=== PATIENT | male | born 1935 | race Caucasian/White ===

== ENCOUNTER → 2017-10-20 | Outpatient (CLI) | payer MEDICARE ==
[~2017-10-20] VITALS: Ht 177.8 cm; Wt 70.8 kg
[~2017-10-20] MED LIST: APIX5TAB PO; APIX5TAB2 PO; ASP325T; ASP325T PO; ASPI-983 PO; CATHETER FLUSH 10 ML SYR IV PRN; CHOL2000 PO; CHOL200012 PO; CLPD75T PO; DOFE500C PO; DOFE500C4 PO; EXCELON PATCH TP; EZET1TAB44; FISH1CAP15 PO; MEMA10TA PO; MEMA28CA PO; MEMA28CA5 PO; MULT-974 PO; OMG1KC; PRAV20TA3 PO; RAMI5CAP PO; RIVA1PAT12 TD; RMP2.5C PO; RMP5C PO; TICA90TA PO; TURM500C4 PO
[2017-10-20 09:56] VITALS: BP 139/76
--- NOTE | 2017-10-20 22:38 | STRESS TEST ---
DATE OF SERVICE: 10/20/2017 AN EXERCISE MYOVIEW STRESS TEST REPORT REFERRING PHYSICIAN: Dr. Can. Baseline heart rate is 45. Baseline blood pressure is 139/76. Baseline EKG is sinus rhythm with no ischemic changes. In summary, the patient was injected with 10.99 mCi of technetium-99 Myoview and the resting images were obtained. Then, the patient started exercising with a baseline heart rate, blood pressure and EKG mentioned above. During exercise, the patient had frequent atrial premature contractions and atrial couplets. There were no significant ischemic changes. He was injected with 29.6 mCi of technetium-99 Myoview at the peak stress level. During recovery, heart rate and blood pressure returned to baseline. EKG was showing nondiagnostic changes that returned to baseline during recovery. Review of the SPECT images showed reversible ischemia involving the mid to apical anterior wall, anteroapical segment and anterolateral wall. SSS is 12, SDS 7 and TID value of 1.1. On the gated images, the left ventricle appeared to be in normal size with normal contractility and calculated ejection fraction 63%. CONCLUSION: 1. Fair exercise tolerance, a total of 5 minutes 30 seconds on standard Jose Francisco protocol, total of 7.1 METS achieving 100% of maximum expected heart rate. 2. Frequent atrial premature contractions and atrial couplets and atrial bigeminy noted during test. 3. Nondiagnostic EKG changes with exercise returned to baseline during recovery. 4. Mild hypertensive changes with exercise returned to baseline during recovery. 5. Reversal ischemia involved the mid to apical anterior wall, anterolateral wall on SPECT images. 6. Normal left ventricular size with normal contractility. Calculated ejection fraction of 63%. Job ID: [id number] DocumentID: [id number] Dictated Date: 10/20/2017 16:16:54 World Language Teacher Date: 10/20/2017 22:37:26 Dictated By: JAZ NERI MD
== END ==
LOC: CARD 08:12
PROVIDERS: ATTEND Internal Medicine Cardiovascular Disease
DX: I25.10 Atherosclerotic heart disease of native coronary artery without angina pectoris (principal); R07.9 Chest pain, unspecified; I48.0 Paroxysmal atrial fibrillation; R00.2 Palpitations; I49.5 Sick sinus syndrome
CPT/HCPCS: 78452; 93017

== ENCOUNTER → 2017-10-25 | Outpatient (CLI) | payer MEDICARE ==
[~2017-10-25] MED LIST changes: -CATHETER FLUSH 10 ML SYR IV PRN
== END ==
LOC: CARD 11:24
PROVIDERS: ATTEND Internal Medicine Cardiovascular Disease
DX: I25.10 Atherosclerotic heart disease of native coronary artery without angina pectoris (principal); R07.9 Chest pain, unspecified; I48.0 Paroxysmal atrial fibrillation; R00.2 Palpitations; I49.5 Sick sinus syndrome
CPT/HCPCS: 93306

== ENCOUNTER 2017-11-03 06:55 | Day surgery (SDC) | payer MEDICARE ==
[~2017-11-03] VITALS: Ht 179.1 cm; Wt 68.0 kg
[2017-11-03] VITALS (16 sets, daily range): BP systolic 91–148; BP diastolic 61–93
[~2017-11-03 06:55] MED LIST changes: -APIX5TAB PO; -ASPI-983 PO; -CHOL200012 PO; -DOFE500C4 PO; -FISH1CAP15 PO; -MEMA28CA5 PO; -MULT-974 PO; -PRAV20TA3 PO; -RAMI5CAP PO; -RIVA1PAT12 TD; -TICA90TA PO; -TURM500C4 PO
--- OUTSIDE RECORDS SUMMARY | 2017-11-03 06:58 | XMS REPORT | Clinical Summary ---
Author Author [facility] Organization [facility] Address Unknown Phone Unavailable Care Team Providers Care Counselor Marriage And Family Name Role Phone Doris Can MD PCP Source Comments Some departments are not documenting in the electronic medical record. If you do not see the information that you expected, contact Release of Information in the Health Information Management department at [phone] for further assistance in locating additional records.[facility] Allergies Active Allergy Reactions Severity Noted Date Comments Atorvastatin MUSCLE PAIN 01/30/2014 Muscle weakness Current Medications Prescription Sig. Disp. Refills Start End Date Status Date apixaban (ELIQUIS) 5 mg Take 5 mg by mouth twice Active tab tablet daily. vitamins, multiple cap Take 1 Cap by mouth Active daily. nitroglycerin (NITROSTAT) Place 0.4 mg under tongue Active 0.4 mg tablet every 5 minutes as needed. pravastatin (PRAVACHOL) Take 20 mg by mouth Active 10 mg tablet daily. cholecalciferol(+) Take 2,000 Units by mouth Active (VITAMIN D-3) 2,000 unit daily. tablet ramipril (ALTACE) 5 mg Take 10 mg by mouth Active capsule daily. fish oil /omega-3 fatty Take by mouth as Active acids (SEA-OMEGA) directed. 1 caps in the 340/1000 mg capsule morning and 1 cap at night rivastigmine(+) (EXELON) Apply 1 Patch to top of Active 13.3 mg/24 hour skin as directed daily. transdermal patch TURMERIC ROOT EXTRACT PO Take by mouth. Active memantine (NAMENDA XR) 28 Take by mouth. Active mg CSpX TIKOSYN 500 mcg capsule TAKE 1 CAPSULE BY MOUTH 30 capsule 0 06/28/19 Active TWICE DAILY 18 Active Problems Problem Noted Date Stroke (HCC) 01/30/2014 Overview: Recurrent; last stroke was 07/25/13 L ast Assessment & Plan: His MRI of the head reported acute cortical infarct involving the frontal parietal lobe. He continues to take Eliquis 5 mg twice daily for anticoagulation. He was educated on the importance of medication compliance. Palpitations 01/30/2014 Overview: 12/15/13 LINQ (serial # [id number]) implanted by Dr. Rocha CAD (coronary artery disease) 01/30/2014 Overview: CAD with prior CABG x 4 in 1999 -- we do not have the details of his CABG at this time. 07/13 Echo: with an ejection fraction of 60%, PAP 25 mmHg by echo. 10/10 ZARINA: with positive inferolateral ischemia, felt to be potentially diaphragmatic attenuation, however given the wide complex tachycardia cardiac catheterization pursued. 10/10 cardiac catheterization per report (documentation currently not available at the time of this dictation) luminal irregularities in the RCA with no significant obstructive disease in the left System. Prior history of one occluded SVG and a "nearly occluded SVG per patient's report". The patient also reports having had a stent in one of his vein grafts in the past as well. 10/10Cardiac catheterization. Per patient's report two vessels with obstruction including one of them being a graft if not two. He underwent stent placement x 2. Plavix initiated. Normal LV function by cardiac catheterization and echocardiogram. 07/25/13 Echo: mild hypertrophy was noted at the base of the septum giving the septum a sigmoid shape. Systolic function appeared to be normal. Estimated EF 60%. Diastolic dysfunction is suggested by doppler. LA dilatation (4.3cm). 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 Mild tricuspid regurgitation. Aortic valve sclerosis. No aortic stenosis. Estimated PAP of 35 mmHg. 07/26/13 Cardiac Cath: 2 vein grafts occluded. The first vein graft to the RCA and the second vein graft is probably to the Diagonal system. Patent vein graft, jump graft to the LAD and first OM with excellent flow. Proper Circumflex artery has 70% stenosis at the midportion. LM has a 60% distal stenosis. L ast Assessment & Plan: Continues to follow Dr. Rocha closely for primary cardiac care. If he becomes symptomatic in the future, the plan would be for him to undergo intervention on the circumflex artery. He remains on daily Plavix therapy. SVT (supraventricular tachycardia) ([facility]) 01/30/2014 Overview: 10/09/05 SVT documented by Holter -- wide complex tachycardia also documented. Wide complex tachycardia changes to narrow complex tachycardia without termination and no change in cycle length. Cycle lengths are variable, at times 420 ms, at other times 380 ms. No clear 2:1 block noted. P waves at times visible documenting atrial tachycardia as well as ectopic atrial rhythms at times. Multifocal atrial tachycardia documented briefly. 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 12/01/05 EPS and RFA: anterolateral accessory pathway identified, unable to eliminate via retrograde aortic approach. Will plan transseptal approach in the future. 01/10 recurrent EPS and RFA via transseptal approach eliminating concealed left anterolateral accessory pathway successfully. No recurrent symptoms or arrhythmias. HTN (hypertension) 01/30/2014 Last Assessment & Plan: Well controlled on current therapy. HLD (hyperlipidemia) 01/30/2014 Last Assessment & Plan: Continues to be managed by Dr. Rocha. He is on Pravastatin 10 mg daily. Atrial fibrillation ([facility]) 01/30/2014 Overview: 02/22/14 Tikosyn initation L ast Assessment & Plan: 29 events on his ILR appear to be atrial fibrillation with RVR. He also had 2 episodes of an atrial tachycardia. Ventricular rates were rapid, ranging between 150-160 bpm. All episodes occurred between 9200-4472 am. Given how rapid his rates are, there is concern he is at risk for a tachy-mediated induced cardiomyopathy. We discussed the options at this time including rate control, anti-arrhythmic therapy, and catheter ablation. Given his bradycardia, we are unable to further titrate up with causing his bradycardia to be worse. Our choices for antiarrhythmics are limited. Because of his CAD, we are unable to use a Class 1C agent and given his bradycardia, sotalol and Multaq are not good options. Ultimately, our choices are Tikosyn and amiodarone. If he is able to afford it, we will admit him and initiate him on Tikosyn. If it is cost prohibitive, we will plan to discontinue his metoprolol and admit him to start amiodarone. If he has bradycardia with the amiodarone, we discussed that he would like need to undergo pacemaker implantation. He was given a script for Tikosyn to take to the pharmacy for cost. He will call us and let us know if it is affordable in the couple of days. 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 However, as stated above we are unable to increase without making his bradycardia worse. Chronic anticoagulation 01/30/[address] Rocha 01/30/2014 Last Assessment & Plan: Device was checked today and demonstrated normal function. See device check and cardiovascular studies for further details. Dementia 01/30/2014 Last Assessment & Plan: Continues to follow with Neurology. On Exelon and Namenda for treatment. Social History Tobacco Use Types Packs/Day Years Used Date Former Smoker Smokeless Tobacco: Never Used Alcohol Use Drinks/Week oz/Week Comments Yes 1-2 drinks per day Sex Assigned at Date Recorded Not on file Last Filed Vital Signs Vital Sign Reading Time Taken Blood Pressure 136/82 12/17/2015 1:14 PM CDT Pulse 49 12/17/2015 12:56 PM CDT Temperature 36.6 C (97.9 F) 02/24/2014 11:15 AM CDT Respiratory Rate - - Oxygen Saturation 100% 02/24/2014 11:15 AM CDT Inhaled Oxygen - - Concentration Weight 69.4 kg (152 lb 14.4 oz) 12/17/2015 12:56 PM CDT Height 175.3 cm (5' 9.02") 12/17/2015 12:56 PM CDT Body Mass Index 22.57 12/17/2015 12:56 PM CDT Plan of Treatment Health Maintenance Due Date Last Done Comments PHYSICAL (COMPREHENSIVE) 1942 EXAM PERTUSSIS VACCINE 1948 TETANUS VACCINE 1954 SHINGLES VACCINE 1997 PNEUMONIA (PCV13/PPSV23) 2002 VACCINES (1 of 2 - PCV13) INFLUENZA VACCINE 03/07/2018 Results Not on filefrom Last 3 Months
--- OUTSIDE RECORDS SUMMARY | 2017-11-03 07:00 | XMS REPORT | CCD ---
Author Author [facility] Organization [facility] Address [address] [place] [address] Phone Care Team Providers Care Algorithm Developer Name Role Phone PP Unavailable CCM Unavailable Summary Purpose Interface Exchange Insurance Providers Payer name Policy type / Coverage type Covered republican ID Effective Begin Date Effective End Date WPS Medicare Part B Medicare Part B [id number] 2013 Unknown [facility] Medicare Part B [id number] 2013 Unknown Family history Brother Diagnosis Age At Onset No Family Disease Entered N/A Mother Diagnosis Age At Onset No Family Disease Entered N/A Son Diagnosis Age At Onset No Family Disease Entered N/A Daughter Diagnosis Age At Onset No Family Disease Entered N/A Father Diagnosis Age At Onset No Family Disease Entered N/A Social History Social History Element Codes Description Effective Dates Marital status Unknown 08/03/[address]: 0542106 Former smoker quit 1980 hx smoking 25 years 1 pack day 07/07/[address]: 902504 Currently drinks alcohol daily 07/07/2011 Has the patient ever used illegal drugs? Unknown Has never used illegal drugs 07/07/2011 Allergies, Adverse Reactions, Alerts Allergies, Adverse Reactions, Alerts data not found Past Medical History Illness Codes Condition Status Onset Date Resolved Date Cellulitis of left finger ICD-9: 681.00 ICD-10: L03.012 Active 06/14/2017 Unknown Encounter for immunization ICD-9: V04.81 ICD-10: Z23 Active 03/15/2017 Unknown Chronic atrial fibrillation ICD-9: 427.31 ICD-10: I48.2 Active 04/04/2014 Unknown Essential (primary) hypertension ICD-9: 401.9 ICD-10: I10 Active 08/09/2013 Unknown Vascular dementia without behavioral disturbance ICD-9: 331.83 ICD-10: F01.50 Active 07/07/2011 Unknown Ingrowing nail ICD-9: 703.0 ICD-10: L60.0 Active 09/01/2015 Unknown Unspecified dementia without behavioral disturbance ICD-9: 294.20 ICD-10: F03.90 Active 09/01/2015 Unknown Idiopathic gout, 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 ICD-10: M10.072 Active 07/22/2015 Unknown Blood pressure check ICD-9: V81.1 Active 10/25/2014 Unknown ATRIAL FIBRILLATION ICD-9: 427.31 Active 04/04/2014 Unknown Atrial fibrillation Unknown Active 08/09/2013 Unknown Diverticular disease Unknown Active 08/09/2013 Unknown sick sinus syndrome Unknown Active 08/09/2013 Unknown Stroke Unknown Active 08/09/2013 Unknown tachycardia Unknown Active 08/09/2013 Unknown Dementia ICD-9: 294.20 Active 08/09/2013 Unknown ESSENTIAL HYPERTENSION ICD-9: 401.9 Active 08/09/2013 Unknown Impacted cerumen ICD-9 : 380.4 Active 08/08/2012 Unknown Low back pain ICD-9: 724.2 Active 01/26/2012 Unknown Rash and nonspecific skin eruption ICD-9: 782.1 Active 2011 Unknown ACUTE MAXILLARY SINUSITIS ICD-9: 461.0 Active 09/09/2011 Unknown Chills (without fever) ICD-9: 780.64 Active 09/09/2011 Unknown Cough ICD-9: 786.2 Active 09/09/2011 Unknown Malaise ICD-9: 780.79 Active 09/09/2011 Unknown Hyperlipidemia Unknown Active 07/07/2011 Unknown Hypertension Unknown Active 07/07/2011 Unknown HYPERLIPIDEMIA ICD-9: 272.4 Active 07/07/2011 Unknown Mild cognitive impairment with memory loss ICD-9: 331.83 Active 07/07/2011 Unknown Problems Condition Codes Effective Dates Condition Status Cellulitis of left finger ICD-9: 681.00 ICD-10: L03.012 06/14/2017 Active Encounter for immunization ICD-9: V04.81 ICD-10: Z23 03/15/2017 Active Chronic atrial fibrillation ICD-9: 427.31 ICD-10: I48.2 04/04/2014 Active Essential (primary) hypertension ICD-9: 401.9 ICD-10: I10 08/09/2013 Active Vascular dementia without behavioral disturbance ICD-9: 331.83 ICD-10: F01.50 07/07/2011 Active Ingrowing nail ICD-9: 703.0 ICD-10: L60.0 09/01/2015 Active Unspecified dementia without behavioral disturbance ICD-9: 294.20 ICD-10: F03.90 09/01/2015 Active Idiopathic gout, 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 ICD-10: M10.072 07/22/2015 Active Blood pressure check ICD-9: V81.1 10/25/2014 Active ATRIAL FIBRILLATION ICD-9: 427.31 04/04/2014 Active Atrial fibrillation Unknown 08/09/2013 Active Diverticular disease Unknown 08/09/2013 Active sick sinus syndrome Unknown 08/09/2013 Active Stroke Unknown 08/09/2013 Active tachycardia Unknown 08/09/2013 Active Dementia ICD-9: 294.20 08/09/2013 Active ESSENTIAL HYPERTENSION ICD-9: 401.9 08/09/2013 Active Impacted cerumen ICD-9 : 380.4 08/08/2012 Active Low back pain ICD-9: 724.2 01/26/2012 Active Rash and nonspecific skin eruption ICD-9: 782.1 11/09/2011 Active ACUTE MAXILLARY SINUSITIS ICD-9: 461.0 09/09/2011 Active Chills (without fever) ICD-9: 780.64 09/09/2011 Active Cough ICD-9: 786.2 09/09/2011 Active Malaise ICD-9: 780.79 09/09/2011 Active Hyperlipidemia Unknown 07/07/2011 Active Hypertension Unknown 07/07/2011 Active HYPERLIPIDEMIA ICD-9: 272.4 07/07/2011 Active Mild cognitive impairment with memory loss ICD-9: 331.83 07/07/2011 Active Medications Medication Codes Instructions Start Date Stop Date Status Fill Instructions Eliquis 5 mg tablet RxNorm: 1106439 TAKE 1 TABLET BY MOUTH TWICE DAILY 07/22/2017 07/16/2018 Active mupirocin 2 % topical ointment RxNorm: 945062 1 Application TOP BID 06/14/2017 No Stop Date Active Exelon Patch 13.3 mg/24 hour transdermal RxNorm: 8516918 APPLY 1 PATCH ONCE DAILY DIRECTED 05/24/2017 11/19/2017 Active Exelon Patch 13.3 mg/24 hour transdermal RxNorm: 1404660 APPLY 1 PATCH ONCE DAILY DIRECTED 04/19/2017 05/18/2017 Inactive ramipril 5 mg capsule RxNorm: 152001 2 CAPSULE(S) PO DAILY 03/0909/04/2017 Active colchicine 0.6 mg capsule RxNorm: 9161840 Capsule(s) PO 1.2 mg followed by 0.6 mg an hour after 02/24/2017 No Stop Date Active Namenda XR 28 mg capsule sprinkle,extended release RxNorm: 457542 TAKE 1 CAPSULE BY MOUTH EVERY DAY 01/11/2017 10/07/2017 Active Exelon Patch 13.3 mg/24 hour transdermal RxNorm: 8775127 APPLY 1 PATCH ONCE DAILY DIRECTED 10/22/2016 04/19/2017 Inactive Exelon Patch 13.3 mg/24 hour transdermal RxNorm: 3029421 APPLY 1 PATCH ONCE DAILY DIRECTED 08/25/2016 10/23/2016 Inactive Eliquis 5 mg tablet RxNorm: 0208748 TAKE 1 TABLET BY MOUTH TWICE DAILY 08/10/2016 07/21/2017 Inactive ramipril 5 mg capsule RxNorm: 252781 2 Capsule(s) PO daily 07/2103/08/2017 Inactive Namenda XR 28 mg capsule sprinkle,extended release RxNorm: 847896 TAKE 1 CAPSULE BY MOUTH EVERY DAY 07/16/2016 01/11/2017 Inactive Eliquis 5 mg tablet RxNorm: 7577329 TAKE 1 TABLET BY MOUTH TWICE DAILY 02/11/2016 08/08/2016 Inactive Namenda XR 28 mg capsule sprinkle,extended release RxNorm: 731395 TAKE 1 CAPSULE BY MOUTH EVERY DAY 01/06/2016 07/03/2016 Inactive ramipril 5 mg capsule RxNorm: 937452 2 Capsule(s) PO daily TAKE 2 CAPSULES BY MOUTH DAILY 10/28/2015 07/20/2016 Inactive Cerefolin NAC (algal oil) 6 mg-600 mg-2 mg-90.314 mg tablet RxNorm: 1 Tablet (s) PO daily 10/08/2015 10/01/2016 Inactive Cerefolin NAC (algal oil) 6 mg-600 mg-2 mg-90.314 mg tablet RxNorm: 1 Tablet (s) PO daily 10/08/2015 10/07/2015 Inactive Keflex 500 mg capsule RxNorm: 996400 1 Capsule(s) PO TID 201509/12/2015 Inactive Bactrim DS 800 mg-160 mg tablet RxNorm: 232974 1 Tablet(s) PO BID 09/02/2015 09/02/2015 Inactive colchicine 0.6 mg capsule RxNorm: 5400326 Capsule(s) PO 1.2 mg followed by 0.6 mg an hour after 09/02/2015 04/05/2016 Inactive Exelon Patch 13.3 mg/24 hour transdermal RxNorm: 4251987 APPLY ONCE DAILY 2015 08/14/2016 Inactive colchicine 0.6 mg capsule RxNorm: 1795963 Capsule(s) PO 1.2 mg followed by 0.6 mg an hour after 07/24/2015 09/01/2015 Inactive Exelon Patch 13.3 mg/24 hour transdermal RxNorm: 6061703 APPLY ONCE DAILY 07/02/2015 07/23/2016 Inactive Exelon Patch 13.3 mg/24 hour transdermal RxNorm: 5584327 1 Patch TD daily 06/05/2015 07/23/2016 Inactive [SAVINGS FOR NON-COVERED DRUGS -- BIN:[id number], PCN: ASPROD1, Group: XXXXX, ID# [id number], Questions: . THIS IS NOT INSURANCE.] ramipril 5 mg capsule RxNorm: 272602 2 Capsule(s) PO daily TAKE 2 CAPSULES BY MOUTH DAILY 06/04/2015 10/27/2015 Inactive Exelon Patch 13.3 mg/24 hour transdermal RxNorm: 9957134 1 TD DAILY 06/03/2015 07/01/2015 Inactive Needs an appt for refills Exelon Patch 13.3 mg/24 hour transdermal RxNorm: 3741818 1 TD DAILY 04/29/2015 05/28/2015 Inactive Eliquis 5 mg tablet RxNorm: 0877522 TAKE 1 TABLET BY MOUTH TWICE DAILY 03/04/2015 02/10/2016 Inactive Namenda XR 28 mg capsule sprinkle,extended release RxNorm: 841470 TAKE 1 CAPSULE BY MOUTH EVERY DAY 11/22/2014 11/05/2017 Active Eliquis 5 mg tablet RxNorm: 2831722 TAKE 1 TABLET BY MOUTH TWICE DAILY 09/11/2014 03/03/2015 Inactive ramipril 5 mg capsule RxNorm: 725539 TAKE 2 CAPSULES BY MOUTH DAILY 08/06/2014 02/01/2015 Inactive ramipril 5 mg capsule RxNorm: 597468 2 Capsule(s) PO daily 08/0608/05/2014 Inactive [SAVINGS FOR NON-COVERED DRUGS -- BIN:[id number], PCN: ASPROD1, Group: XXXXX, ID # [id number], Questions: . THIS IS NOT INSURANCE.] ramipril 5 mg capsule RxNorm: 425163 TAKE 2 CAPSULES BY MOUTH DAILY 08/06/2014 08/05/2014 Inactive ramipril 5 mg capsule RxNorm: 723577 TAKE 2 CAPSULES BY MOUTH DAILY 08/06/2014 08/05/2014 Inactive ramipril 5 mg capsule RxNorm: 252875 TAKE 2 CAPSULES BY MOUTH DAILY 08/06/2014 02/01/2015 Inactive Exelon Patch 13.3 mg/24 hour transdermal RxNorm: 8692126 1 TD daily 08/06/2014 06/04/2015 Inactive [SAVINGS FOR NON-COVERED DRUGS -- BIN:151485, PCN: ASPROD1, Group : XXXXX, ID# [id number], Questions: . THIS IS NOT INSURANCE.] pravastatin 10 mg tablet RxNorm: 766027 TAKE ONE TABLET BY MOUTH DAILY 06/21/2014 03/17/2015 Inactive pravastatin 10 mg tablet RxNorm: 827285 Tablet(s) TAKE ONE TABLET BY MOUTH DAILY 06/21/2014 06/14/2015 Inactive [SAVINGS FOR UNINSURED PATIENTS -- BIN:941101, PCN: ASPROD1, Group: [id number], ID# [id number], Process claim through BriefCam, for questions: . THIS IS NOT INSURANCE.] Exelon Patch 13.3 mg/24 hour transdermal RxNorm: 1570431 1 TD daily 04/04/2014 08/05/2014 Inactive pravastatin 10 mg tablet RxNorm: 356277 TAKE ONE TABLET BY MOUTH DAILY 03/26/2014 06/20/2014 Inactive Namenda XR 28 mg capsule sprinkle,extended release RxNorm: 792617 1 Capsule(s) PO daily 01/02/2014 11/21/2014 Inactive Exelon Patch 9.5 mg/24 hr transdermal RxNorm: 696477 1 TD DAILY 01/02/2014 04/03/2014 Inactive Namenda XR 28 mg capsule sprinkle,ER 24hr RxNorm: 535194 1 Capsule(s) PO daily 09/26/2013 01/01/2014 Inactive Namenda XR 28 mg capsule sprinkle,ER 24hr RxNorm: 659664 1 Capsule(s) PO daily 09/15/2013 09/25/2013 Inactive Namenda XR 28 mg capsule sprinkle,ER 24hr RxNorm: 249904 1 Capsule(s) PO daily 08/09/2013 09/14/2013 Inactive Namenda 10 mg tablet RxNorm: 992769 1 Tablet(s) PO BID TAKE ONE TABLET BY MOUTH TWICE DAILY 08/09/2013 11/19/2013 Inactive Namenda 10 mg tablet RxNorm: 257139 Tablet(s) PO TAKE ONE TABLET BY MOUTH TWICE DAILY 07/27/2013 08/08/2013 Inactive pravastatin 10 mg tablet RxNorm: 113575 Tablet(s) PO TAKE ONE TABLET BY MOUTH DAILY 12/23/2012 03/25/2014 Inactive Exelon 9.5 mg/24 hour Transderm 24 hr Patch RxNorm: 500778 Patch 24 hr TD APPLY 1 PATCH DAILY 12/23/2012 06/18/2014 Inactive Namenda 10 mg tablet RxNorm: 884679 Tablet(s) PO TAKE ONE TABLET BY MOUTH TWICE DAILY 11/28/2012 08/10/2013 Inactive Metanx 3 mg-35 mg-2 mg tablet RxNorm: Tablet(s) PO TAKE 1 TABLET BY MOUTH TWICE DAILY 10/20/2012 04/03/2014 Inactive Namenda 10 mg tablet RxNorm: 624304 Tablet(s) PO TAKE ONE TABLET BY MOUTH TWICE DAILY 09/15/2012 11/27/2012 Inactive Metanx 3 mg-35 mg-2 mg tablet RxNorm: Tablet(s) PO TAKE 1 TABLET BY MOUTH TWICE DAILY 09/15/2012 10/19/2012 Inactive Exelon Patch 9.5 mg/24 hr transdermal RxNorm: 319111 1 TD daily 04/27/2012 11/22/2012 Inactive Exelon 9.5 mg/24 hour Transderm 24 hr Patch RxNorm: 039379 1 TD daily 04/27/2012 04/26/2012 Inactive naproxen 500 mg tablet RxNorm: 625572 1 Tablet(s) PO BID 201105/01/2012 Inactive naproxen 500 mg tablet RxNorm: 581319 1 Tablet(s) PO BID 201102/01/2012 Inactive Vimovo 500 mg-20 mg tablets,immediate & delayed release RxNorm: 007868 1 Tablet(s ) PO BID 02/01/2012 02/01/2012 Inactive Vimovo 500 mg-20 mg tablets,immediate & delayed release RxNorm: 139625 1 Tablet(s ) PO BID 02/01/2012 01/31/2012 Inactive ketorolac 60 mg/2 mL IM RxNorm: 424660 2 Milliliter(s) IM 01/2501/26/2012 Inactive Exelon 4.6 mg/24 hour Transderm 24 hr Patch RxNorm: 864075 1 Patch TD daily 12/07/2011 04/26/2012 Inactive pravastatin 10 mg tablet RxNorm: 252983 1 Tablet(s) PO daily dc vytorin 11/24/2011 12/17/2012 Inactive may have #90 with 3 refills if cheaper pravastatin 10 mg Tab RxNorm: 368652 1 Tablet(s) PO daily 201111/23/2011 Inactive Exelon 4.6 mg/24 hour Transderm 24 hr Patch RxNorm: 408268 1 Patch TD daily 11/09/2011 12/06/2011 Inactive Metanx 3 mg-35 mg-2 mg tablet RxNorm: 1 Tablet(s) PO BID 09/2703/25/2012 Inactive azithromycin 500 mg Tab RxNorm: 6330919 1 Tablet(s) PO daily 09/13/2011 Inactive Exelon 4.6 mg/24 hour Transderm 24 hr Patch RxNorm: 922264 1 Patch TD daily 09/08/2011 10/07/2011 Inactive Namenda 10 mg Tab RxNorm: 468813 1 Tablet(s) PO BID 201109/01/2011 Inactive Namenda 10 mg tablet RxNorm: 621720 1 Tablet(s) PO BID 201109/14/2012 Inactive Fish Oil 1,000 mg Cap RxNorm: 1 Capsule(s) PO TID 07/07/2011 04/03/2014 Inactive multivitamin Cap RxNorm: 1 Capsule(s) PO daily No Start Date Active Vitamin D 2,000 unit Cap RxNorm: 1 Capsule(s) PO TID No Start Date Active Tikosyn 500 mcg capsule RxNorm: 349500 1 Capsule(s) PO Q12H No Start Date Active Viagra 100 mg Tab RxNorm: 963460 1 Tablet(s) PO as directed No Start Date 04/03/2014 Inactive Plavix 75 mg tablet RxNorm: 712598 1 Tablet(s) PO daily No Start Date 06/04/2015 Inactive Fish Oil 1,000 mg Cap RxNorm: 1 Capsule(s) PO daily No Start Date 07/06/2011 Inactive Eliquis 5 mg tablet RxNorm: 6060087 1 Tablet(s) PO BID No Start Date 09/10/2014 Inactive Metanx 3 mg-35 mg-2 mg Tab RxNorm: 1 Tablet(s) PO BID No Start Date 09/27/2011 Inactive Exelon 4.6 mg/24 hour Transderm 24 hr Patch RxNorm: 445956 1 TD daily samples No Start Date 09/07/2011 Inactive ramipril 2.5 mg Cap RxNorm: 980806 1 Capsule(s) PO daily No Start Date 08/08/2013 Inactive ramipril 5 mg capsule RxNorm: 980771 2 Capsule(s) PO daily No Start Date 08/05/2014 Inactive Vytorin 10-40 10 mg-40 mg Tab RxNorm: 9759631 1 Tablet(s) PO daily No Start Date 11/23/2011 Inactive Medication Administered Medication Codes Instructions Start Date Status ketorolac 60 mg/2 mL IM RxNorm: 398616 2Milliliter 01/26/2012 No longer Active Immunizations Vaccine Codes Date Status Influenza CVX: 141 03/15/2017 completed PPD Unknown 10/26/2014 completed Influenza CVX: 141 02/11/2013 completed Assessments Condition Codes Effective Dates Cellulitis of left finger ICD-10: L03.012 ICD-9: 681.00 06/14/2017 Encounter for immunization ICD-10: Z23 ICD-9: V04.81 03/15/2017 Vascular dementia without behavioral disturbance ICD-10: F01.50 ICD-9: 331.83 04/06/2016 Chronic atrial fibrillation ICD-10: I48.2 ICD-9: 427.31 04/06/2016 Essential (primary) hypertension ICD-10: I10 ICD-9: 401.9 04/06/2016 Ingrowing nail ICD-10: L60.0 ICD-9: 703.0 09/02/2015 Unspecified dementia without behavioral disturbance ICD-10: F03.90 ICD-9: 294.20 09/02/2015 Idiopathic gout, left ankle and foot ICD-10: M10.072 ICD-9: 274.00 07/23/2015 Blood pressure check ICD-9: V81.1 2014 ATRIAL FIBRILLATION ICD-9: 427.31 2014 ESSENTIAL HYPERTENSION ICD-9: 401.9 06/18 Dementia ICD-9: 294.20 06/18/2014 MILD COGNITIVE IMPAIREMT ICD-9: 331.83 HYPERLIPIDEMIA ICD-9: 272.4 08/08/2012 Impacted cerumen ICD-9: 380.4 08/08/2012 Low back pain ICD-9: 724.2 01/26/2012 Rash and nonspecific skin eruption ICD-9: 782.1 11/09/2011 Chills (without fever) ICD-9: 780.64 09/2011 ACUTE MAXILLARY SINUSITIS ICD-9: 461.0 Cough ICD-9: 786.2 09/09/2011 Malaise ICD-9: 780.79 09/09/2011 Reason For Visit Reason For Visit Effective Dates Notes cellulitis 06/14/2017 vaccination against influenza 03/15/2017 medication follow up 04/06/2016 toe pain due to infection 09/02/2015 toe pain due to infection 07/23/2015 medication follow up 06/05/2015 hypertension 06/18/2014 hypertension 04/04/2014 Hospital Follow Up 08/09/2013 hypertension 08/08/2012 back pain 01/26/2012 hypertension 11/09/2011 cough 09/09/2011 hypertension 08/03/2011 hypertension 07/07/2011 Results Observation Observation Code Item Item Code Result Date Comp Metabolic Guh577 NA 139 mEq/L 03/05/2016 Comp Metabolic Esr748 K 4.1 mEq/L 03/05/2016 Comp Metabolic Ysj339 CL 105 mEq/L 03/05/2016 Comp Metabolic Uam106 CO2 30.0 mEq/L 03/05/2016 Comp Metabolic Gzj615 ANION GAP 8 03/05/2016 Comp Metabolic Wzr402 GLUCOSE 98 mg/dL 03/05/2016 Comp Metabolic Reh384 Creat 1.1 mg/dL 03/05/2016 Comp Metabolic Onw936 eGFR 73 ml/min/1.73m2 03/05/2016 Comp Metabolic Wsx530 BUN 17 mg/dL 03/05/2016 Comp Metabolic Drr003 B/C Ratio 16.2 Ratio 03/05/2016 Comp Metabolic Jsy624 CALCIUM 9.5 mg/dL 03/05/2016 Comp Metabolic Vxl376 ALK PHOS 53 U/L 03/05/2016 Comp Metabolic Irp870 AST(SGOT) 20 U/L 03/05/2016 Comp Metabolic Whs110 ALT(SGPT) 15 U/L 03/05/2016 Comp Metabolic Hwq082 BILI T 0.7 mg/dL 03/05/2016 Comp Metabolic Vgm003 ALBUMIN 4.4 g/dL 03/05/2016 Comp Metabolic Uyj430 TPRO 6.9 g/dL 03/05/2016 Comp Metabolic Egf101 GLOB 2.5 g/dL 03/05/2016 Comp Metabolic Twe818 A/G Ratio 1.8 Ratio 03/05/2016 Comp Metabolic Bsk979 Osmo 279 mOsmo 03/05/2016 Lipid Ord30 CHOL 146 mg/dL 03/05/2016 Lipid Ord30 HDL 39.0 mg/dl 03/05/2016 Lipid Ord30 TRIG 73 mg/dL 03/05/2016 Lipid Ord30 LDL 92 mg/dL 03/05/2016 Lipid Ord30 C/HDL 3.7 Ratio 03/05/2016 Cbc With Differential Ord2 WBC 8.33 K/ul 07/23/2015 Cbc With Differential Ord2 RBC 4.70 M/ul 07/23/2015 Cbc With Differential Ord2 HGB 14.5 g/dl 07/23/2015 Cbc With Differential Ord2 HCT 43.5 % 07/23/2015 Cbc With Differential Ord2 Neut% 59.9 % 07/23/2015 Cbc With Differential Ord2 MCV 92.6 fl 07/23/2015 Cbc With Differential Ord2 Lymph% 20.0 % 07/23/2015 Cbc With Differential Ord2 Levy% 18.0 % 07/23/2015 Cbc With Differential Ord2 MCH 30.9 pg 07/23/2015 Cbc With Differential Ord2 Eos% 1.7 % 07/23/2015 Cbc With Differential Ord2 MCHC 33.3 pg 07/23/2015 Cbc With Differential Ord2 PLT 235 K/ul 07/23/2015 Cbc With Differential Ord2 Baso% 0.4 % 07/23/2015 Cbc With Differential Ord2 Neut ABS# 4.99 K/ul 07/23/2015 Cbc With Differential Ord2 RDW 13.1 % 07/23/2015 Cbc With Differential Ord2 Lymph ABS# 1.67 K/ul 07/23/2015 Cbc With Differential Ord2 Levy ABS# 1.5 K/ul 07/23/2015 Cbc With Differential Ord2 Eos ABS# 0.1 K/ul 07/23/2015 Cbc With Differential Ord2 Baso ABS# 0.0 K/ul 07/23/2015 Cbc With Differential Ord2 New Analyzer Notice Please note new ref ranges starting 06-19-2015 due to implemntation of new five part differential hematolgy analyzer. 07/23/2015 Comp Metabolic Wkw820 NA 142 mEq/L 07/23/2015 Comp Metabolic Sxy004 K 4.1 mEq/L 07/23/2015 Comp Metabolic Iab520 CL 105 mEq/L 07/23/2015 Comp Metabolic Ffr966 CO2 29.0 mEq/L 07/23/2015 Comp Metabolic Xyw550 ANION GAP 12 07/23/2015 Comp Metabolic Xyo745 GLUCOSE 75 mg/dL 07/23/2015 Comp Metabolic Muw014 Creat 0.9 mg/dL 07/23/2015 Comp Metabolic Pfj272 eGFR 84 ml/min/1.73m2 07/23/2015 Comp Metabolic Lee561 BUN 12 mg/dL 07/23/2015 Comp Metabolic Vrc147 B/C Ratio 12.9 Ratio 07/23/2015 Comp Metabolic Yrw210 CALCIUM 9.4 mg/dL 07/23/2015 Comp Metabolic Fhx066 ALK PHOS 61 U/L 07/23/2015 Comp Metabolic Qon919 AST(SGOT) 20 U/L 07/23/2015 Comp Metabolic Dlu515 ALT(SGPT) 15 U/L 07/23/2015 Comp Metabolic Awn690 BILI T 0.5 mg/dL 07/23/2015 Comp Metabolic Vov794 ALBUMIN 4.1 g/dL 07/23/2015 Comp Metabolic Syl757 TPRO 6.6 g/dL 07/23/2015 Comp Metabolic Jnl164 GLOB 2.5 g/dL 07/23/2015 Comp Metabolic Neb162 A/G Ratio 1.6 Ratio 07/23/2015 Comp Metabolic Fuf176 Osmo 282 mOsmo 07/23/2015 Tsh Ord6 hTSH II 0.89 uIU/mL 07/23/2015 Uric Acid Ord77 Uric A 6.4 mg/dL 07/23/2015 Review of Systems System Result Effective Dates Constitutional No recent illness 2017 Constitutional No chills 06/14/2017 Constitutional No diaphoresis 06/14/2017 Constitutional No fever 06/14/2017 Eyes No eye erythema 06/14/2017 Ears/Nose/Throat/Neck No nasal discharge 06/14/2017 Ears/Nose/Throat/Neck No nasal allergies 06/14/2017 Cardiovascular No chest pain/pressure 01/2018 Cardiovascular No dyspnea 06/14/2017 Respiratory No cough 06/14/2017 Respiratory No chest congestion 2017 Gastrointestinal No abdominal pain 2017 Musculoskeletal No joint complaint 2017 Dermatologic sores 06/14/2017 Neurologic No alteration of consciousness 06/14/2017 Neurologic memory loss 06/14/2017 Constitutional No recent illness 2015 Constitutional No night sweats 2015 Constitutional No chills 04/06/2016 Constitutional No diaphoresis 04/06/2016 Constitutional No fatigue 04/06/2016 Constitutional No insomnia 04/06/2016 Eyes No eye discharge 04/06/2016 Eyes No eye erythema 04/06/2016 Ears/Nose/Throat/Neck No dizziness 2015 Ears/Nose/Throat/Neck No headache 2015 Ears/Nose/Throat/Neck No sinus congestion 04/06/2016 Ears/Nose/Throat/Neck No sore throat Cardiovascular No chest pain/pressure Cardiovascular No dyspnea 04/06/2016 Cardiovascular No edema 04/06/2016 Respiratory No chest congestion 2015 Respiratory No cigarette smoking 2015 Respiratory No cough 04/06/2016 Gastrointestinal No abdominal pain 2015 Gastrointestinal No constipation 2015 Gastrointestinal No diarrhea 04/06/2016 Gastrointestinal No gastroesophageal reflux 04/06/2016 Gastrointestinal No nausea 04/06/2016 Gastrointestinal No vomiting 04/06/2016 Genitourinary/Nephrology No dysuria 04/06 Musculoskeletal No stiffness 04/06/2016 Musculoskeletal No swelling 04/06/2016 Musculoskeletal No arthralgia(s) 2015 Musculoskeletal No back pain 04/06/2016 Musculoskeletal No muscle weakness 2015 Musculoskeletal No myalgias 04/06/2016 Dermatologic No rash 04/06/2016 Dermatologic No sores 04/06/2016 Dermatologic No scar 04/06/2016 Neurologic No alteration of consciousness 04/06/2016 Neurologic No gait abnormality 2015 Neurologic memory loss 04/06/2016 Psychiatric No anxiety 04/06/2016 Psychiatric No depression 04/06/2016 Psychiatric disturbances of memory 2015 Constitutional No recent illness 2015 Constitutional No chills 09/02/2015 Constitutional No diaphoresis 09/02/2015 Constitutional No fatigue 09/02/2015 Constitutional No insomnia 09/02/2015 Eyes No eye discharge 09/02/2015 Eyes No eye erythema 09/02/2015 Ears/Nose/Throat/Neck No dizziness 2015 Ears/Nose/Throat/Neck No headache 2015 Ears/Nose/Throat/Neck No sinus congestion 09/02/2015 Ears/Nose/Throat/Neck No sore throat Cardiovascular No chest pain/pressure Cardiovascular No dyspnea 09/02/2015 Cardiovascular No edema 09/02/2015 Respiratory No chest congestion 2015 Respiratory No cough 09/02/2015 Gastrointestinal No abdominal pain 2015 Gastrointestinal No constipation 2015 Gastrointestinal No diarrhea 09/02/2015 Gastrointestinal No nausea 09/02/2015 Gastrointestinal No vomiting 09/02/2015 Genitourinary/Nephrology No dysuria 09/01 Dermatologic No scar 09/02/2015 Neurologic No gait abnormality 2015 Neurologic memory loss 09/02/2015 Psychiatric No anxiety 09/02/2015 Psychiatric No depression 09/02/2015 Psychiatric disturbances of memory 2015 Dermatologic sores 09/02/2015 Constitutional No recent illness 2015 Constitutional No night sweats 2015 Constitutional No chills 07/23/2015 Constitutional No diaphoresis 07/23/2015 Constitutional No fatigue 07/23/2015 Constitutional No insomnia 07/23/2015 Eyes No eye discharge 07/23/2015 Eyes No eye erythema 07/23/2015 Ears/Nose/Throat/Neck No dizziness 2015 Ears/Nose/Throat/Neck No headache 2015 Ears/Nose/Throat/Neck No sinus congestion 07/23/2015 Ears/Nose/Throat/Neck No sore throat Cardiovascular No chest pain/pressure Cardiovascular No dyspnea 07/23/2015 Cardiovascular No edema 07/23/2015 Respiratory No chest congestion 2015 Respiratory No cough 07/23/2015 Gastrointestinal No abdominal pain 2015 Gastrointestinal No constipation 2015 Gastrointestinal No diarrhea 07/23/2015 Gastrointestinal No nausea 07/23/2015 Gastrointestinal No vomiting 07/23/2015 Genitourinary/Nephrology No dysuria 07/23 Musculoskeletal No stiffness 07/23/2015 Musculoskeletal No swelling 07/23/2015 Musculoskeletal No arthralgia(s) 2015 Musculoskeletal No back pain 07/23/2015 Musculoskeletal No muscle weakness 2015 Musculoskeletal No myalgias 07/23/2015 Dermatologic No rash 07/23/2015 Dermatologic No sores 07/23/2015 Dermatologic No scar 07/23/2015 Neurologic No alteration of consciousness 07/23/2015 Neurologic No gait abnormality 2015 Neurologic memory loss 07/23/2015 Psychiatric No anxiety 07/23/2015 Psychiatric No depression 07/23/2015 Psychiatric disturbances of memory 2015 Musculoskeletal joint complaint 2015 Constitutional No recent illness 2014 Constitutional No night sweats 2014 Constitutional No chills 06/05/2015 Constitutional No diaphoresis 06/05/2015 Constitutional No fatigue 06/05/2015 Constitutional No insomnia 06/05/2015 Eyes No eye discharge 06/05/2015 Eyes No eye erythema 06/05/2015 Ears/Nose/Throat/Neck No sore throat Ears/Nose/Throat/Neck No sinus congestion 06/05/2015 Ears/Nose/Throat/Neck No dizziness 2014 Ears/Nose/Throat/Neck No headache 2014 Cardiovascular No chest pain/pressure Cardiovascular No dyspnea 06/05/2015 Cardiovascular No edema 06/05/2015 Respiratory No chest congestion 2014 Respiratory No cough 06/05/2015 Gastrointestinal No constipation 2014 Gastrointestinal No diarrhea 06/05/2015 Gastrointestinal No abdominal pain 2014 Gastrointestinal No gastroesophageal reflux 06/05/2015 Musculoskeletal No arthralgia(s) 2014 Musculoskeletal No back pain 06/05/2015 Dermatologic No rash 06/05/2015 Dermatologic No sores 06/05/2015 Respiratory No cigarette smoking 2014 Gastrointestinal No nausea 06/05/2015 Gastrointestinal No vomiting 06/05/2015 Genitourinary/Nephrology No dysuria 06/05 Musculoskeletal No stiffness 06/05/2015 Musculoskeletal No swelling 06/05/2015 Musculoskeletal No muscle weakness 2014 Musculoskeletal No myalgias 06/05/2015 Dermatologic No scar 06/05/2015 Neurologic No gait abnormality 2014 Neurologic memory loss 06/05/2015 Psychiatric No anxiety 06/05/2015 Psychiatric No depression 06/05/2015 Psychiatric disturbances of memory 2014 Neurologic No alteration of consciousness 06/05/2015 Constitutional recent illness 06/18/2014 Constitutional No insomnia 06/18/2014 Cardiovascular No chest pain/pressure 05/2015 Cardiovascular No dyspnea 06/18/2014 Cardiovascular No edema 06/18/2014 Respiratory cough 06/18/2014 Respiratory No cigarette smoking 2014 Respiratory No chest congestion 2014 Ears/Nose/Throat/Neck postnasal drip 05/2015 Ears/Nose/Throat/Neck sinus congestion Gastrointestinal No abdominal pain 2014 Gastrointestinal No constipation 2014 Gastrointestinal No diarrhea 06/18/2014 Gastrointestinal No nausea 06/18/2014 Gastrointestinal No vomiting 06/18/2014 Genitourinary/Nephrology No dysuria 06/18 Psychiatric No anxiety 06/18/2014 Psychiatric No depression 06/18/2014 Psychiatric disturbances of memory 2014 Dermatologic No rash 06/18/2014 Dermatologic No scar 06/18/2014 Musculoskeletal No stiffness 06/18/2014 Musculoskeletal No swelling 06/18/2014 Musculoskeletal No muscle weakness 2014 Musculoskeletal No myalgias 06/18/2014 Neurologic No dizziness 06/18/2014 Neurologic No dyskinesia or tremor 2014 Neurologic No gait abnormality 2014 Neurologic memory loss 06/18/2014 Constitutional No recent illness 2013 Constitutional No night sweats 2013 Constitutional No chills 04/04/2014 Constitutional No fatigue 04/04/2014 Constitutional No fever 04/04/2014 Eyes No vision change 04/04/2014 Ears/Nose/Throat/Neck No headache 2013 Ears/Nose/Throat/Neck hearing loss 2013 Ears/Nose/Throat/Neck No voice change Ears/Nose/Throat/Neck No sinus congestion 04/04/2014 Respiratory No chest congestion 2013 Respiratory No chest tightness 2013 Respiratory No cough 04/04/2014 Gastrointestinal No abdominal pain 2013 Gastrointestinal No constipation 2013 Gastrointestinal No diarrhea 04/04/2014 Genitourinary/Nephrology No urinary urgency 04/04/2014 Genitourinary/Nephrology No urinary incontinence 04/04/2014 Musculoskeletal No stiffness 04/04/2014 Musculoskeletal No arthralgia(s) 2013 Dermatologic No rash 04/04/2014 Dermatologic No sores 04/04/2014 Psychiatric No anxiety 04/04/2014 Psychiatric No depression 04/04/2014 Endocrine No cold sensitivity 04/04/2014 Endocrine No weakness 04/04/2014 Hematologic/Lymphatic No abnormal ecchymoses 04/04/2014 Hematologic/Lymphatic No abnormal bleeding and bruising 04/04/2014 Constitutional No recent illness 2013 Constitutional No night sweats 2013 Constitutional No chills 08/09/2013 Constitutional No fatigue 08/09/2013 Constitutional No fever 08/09/2013 Eyes No vision change 08/09/2013 Ears/Nose/Throat/Neck No headache 2013 Ears/Nose/Throat/Neck hearing loss 2013 Ears/Nose/Throat/Neck No voice change 10/2013 Ears/Nose/Throat/Neck No sinus congestion 08/09/2013 Respiratory No chest congestion 2013 Respiratory No chest tightness 2013 Respiratory No cough 08/09/2013 Gastrointestinal No abdominal pain 2013 Gastrointestinal No constipation 2013 Gastrointestinal No diarrhea 08/09/2013 Genitourinary/Nephrology No urinary urgency 08/09/2013 Genitourinary/Nephrology No urinary incontinence 08/09/2013 Musculoskeletal No stiffness 08/09/2013 Musculoskeletal No arthralgia(s) 2013 Dermatologic No rash 08/09/2013 Dermatologic No sores 08/09/2013 Psychiatric No anxiety 08/09/2013 Psychiatric No depression 08/09/2013 Endocrine No cold sensitivity 08/09/2013 Endocrine No weakness 08/09/2013 Hematologic/Lymphatic No abnormal ecchymoses 08/09/2013 Hematologic/Lymphatic No abnormal bleeding and bruising 08/09/2013 Constitutional No recent illness 2012 Constitutional No night sweats 2012 Constitutional No chills 08/08/2012 Constitutional No fatigue 08/08/2012 Constitutional No fever 08/08/2012 Eyes No vision change 08/08/2012 Ears/Nose/Throat/Neck No headache 2012 Ears/Nose/Throat/Neck hearing loss 2012 Ears/Nose/Throat/Neck No sinus congestion 08/08/2012 Ears/Nose/Throat/Neck No voice change 09/2012 Respiratory No chest congestion 2012 Respiratory No chest tightness 2012 Respiratory No cough 08/08/2012 Gastrointestinal No abdominal pain 2012 Gastrointestinal No constipation 2012 Gastrointestinal No diarrhea 08/08/2012 Genitourinary/Nephrology No urinary urgency 08/08/2012 Genitourinary/Nephrology No urinary incontinence 08/08/2012 Musculoskeletal No stiffness 08/08/2012 Musculoskeletal No arthralgia(s) 2012 Dermatologic No rash 08/08/2012 Dermatologic No sores 08/08/2012 Psychiatric No anxiety 08/08/2012 Psychiatric No depression 08/08/2012 Endocrine No cold sensitivity 08/08/2012 Endocrine No weakness 08/08/2012 Hematologic/Lymphatic No abnormal ecchymoses 08/08/2012 Hematologic/Lymphatic No abnormal bleeding and bruising 08/08/2012 Constitutional No recent illness 2011 Constitutional No anorexia 01/26/2012 Constitutional No night sweats 2011 Constitutional No chills 01/26/2012 Constitutional No diaphoresis 01/26/2012 Constitutional No fever 01/26/2012 Constitutional No fatigue 01/26/2012 Constitutional No malaise 01/26/2012 Constitutional No insomnia 01/26/2012 Genitourinary/Nephrology No dysuria 01/25 Genitourinary/Nephrology No urinary urgency 01/26/2012 Genitourinary/Nephrology No urinary frequency 01/26/2012 Genitourinary/Nephrology No urinary incontinence 01/26/2012 Genitourinary/Nephrology No urinary retention/hesitancy 01/26/2012 Cardiovascular No chest pain/pressure Respiratory No cough 01/26/2012 Gastrointestinal No abdominal pain 2011 Gastrointestinal No constipation 2011 Gastrointestinal No diarrhea 01/26/2012 Gastrointestinal No nausea 01/26/2012 Gastrointestinal No vomiting 01/26/2012 Dermatologic No rash 01/26/2012 Dermatologic No sores 01/26/2012 Constitutional No recent illness 2011 Constitutional No fever 11/09/2011 Constitutional No chills 11/09/2011 Eyes No vision change 11/09/2011 Ears/Nose/Throat/Neck No hoarseness 11/08 Ears/Nose/Throat/Neck No hearing loss 09/2011 Cardiovascular No chest pain/pressure 09/2011 Cardiovascular No dyspnea 11/09/2011 Cardiovascular No edema 11/09/2011 Cardiovascular No palpitations 2011 Respiratory No dyspnea 11/09/2011 Respiratory No chest congestion 2011 Respiratory No chest tightness 2011 Gastrointestinal No nausea 11/09/2011 Gastrointestinal No vomiting 11/09/2011 Gastrointestinal No abdominal pain 2011 Gastrointestinal No constipation 2011 Gastrointestinal No diarrhea 11/09/2011 Genitourinary/Nephrology No dysuria 11/08 Constitutional No night sweats 2011 Constitutional No fatigue 11/09/2011 Ears/Nose/Throat/Neck No headache 2011 Ears/Nose/Throat/Neck No sinus congestion 11/09/2011 Ears/Nose/Throat/Neck No voice change 09/2011 Respiratory No cough 11/09/2011 Genitourinary/Nephrology No urinary urgency 11/09/2011 Genitourinary/Nephrology No urinary incontinence 11/09/2011 Musculoskeletal No stiffness 11/09/2011 Musculoskeletal No arthralgia(s) 2011 Dermatologic No rash 11/09/2011 Dermatologic No sores 11/09/2011 Psychiatric No anxiety 11/09/2011 Psychiatric No depression 11/09/2011 Endocrine No cold sensitivity 11/09/2011 Endocrine No weakness 11/09/2011 Hematologic/Lymphatic No abnormal ecchymoses 11/09/2011 Hematologic/Lymphatic No abnormal bleeding and bruising 11/09/2011 Constitutional chills 09/09/2011 Constitutional No fever 09/09/2011 Constitutional No recent illness 2011 Constitutional No night sweats 2011 Constitutional fatigue 09/09/2011 Eyes No vision change 09/09/2011 Ears/Nose/Throat/Neck No headache 2011 Ears/Nose/Throat/Neck hearing loss 2011 Ears/Nose/Throat/Neck No voice change 09/2011 Gastrointestinal No abdominal pain 2011 Gastrointestinal No constipation 2011 Gastrointestinal No diarrhea 09/09/2011 Genitourinary/Nephrology No urinary urgency 09/09/2011 Genitourinary/Nephrology No urinary incontinence 09/09/2011 Musculoskeletal No stiffness 09/09/2011 Musculoskeletal No arthralgia(s) 2011 Psychiatric No anxiety 09/09/2011 Psychiatric No depression 09/09/2011 Endocrine No cold sensitivity 09/09/2011 Endocrine No weakness 09/09/2011 Hematologic/Lymphatic No abnormal ecchymoses 09/09/2011 Hematologic/Lymphatic No abnormal bleeding and bruising 09/09/2011 Musculoskeletal myalgias 09/09/2011 Constitutional No recent illness 2011 Constitutional No night sweats 2011 Constitutional No chills 08/03/2011 Constitutional No fatigue 08/03/2011 Constitutional No fever 08/03/2011 Eyes No vision change 08/03/2011 Ears/Nose/Throat/Neck No headache 2011 Ears/Nose/Throat/Neck hearing loss 2011 Ears/Nose/Throat/Neck No sinus congestion 08/03/2011 Ears/Nose/Throat/Neck No voice change Respiratory No chest congestion 2011 Respiratory No chest tightness 2011 Respiratory No cough 08/03/2011 Gastrointestinal No abdominal pain 2011 Gastrointestinal No constipation 2011 Gastrointestinal No diarrhea 08/03/2011 Genitourinary/Nephrology No urinary urgency 08/03/2011 Genitourinary/Nephrology No urinary incontinence 08/03/2011 Musculoskeletal No stiffness 08/03/2011 Musculoskeletal No arthralgia(s) 2011 Dermatologic No rash 08/03/2011 Dermatologic No sores 08/03/2011 Psychiatric No anxiety 08/03/2011 Psychiatric No depression 08/03/2011 Endocrine No cold sensitivity 08/03/2011 Endocrine No weakness 08/03/2011 Hematologic/Lymphatic No abnormal ecchymoses 08/03/2011 Hematologic/Lymphatic No abnormal bleeding and bruising 08/03/2011 Gastrointestinal No constipation 2011 Gastrointestinal No diarrhea 07/07/2011 Genitourinary/Nephrology No urinary urgency 07/07/2011 Genitourinary/Nephrology No urinary incontinence 07/07/2011 Hematologic/Lymphatic No abnormal ecchymoses 07/07/2011 Hematologic/Lymphatic No abnormal bleeding and bruising 07/07/2011 Endocrine No cold sensitivity 07/07/2011 Endocrine No weakness 07/07/2011 Psychiatric No anxiety 07/07/2011 Psychiatric No depression 07/07/2011 Dermatologic No rash 07/07/2011 Dermatologic No sores 07/07/2011 Musculoskeletal No arthralgia(s) 2011 Musculoskeletal No stiffness 07/07/2011 Constitutional No night sweats 2011 Eyes No vision change 07/07/2011 Constitutional No fever 07/07/2011 Constitutional No fatigue 07/07/2011 Constitutional No chills 07/07/2011 Ears/Nose/Throat/Neck No voice change Ears/Nose/Throat/Neck No sinus congestion 07/07/2011 Ears/Nose/Throat/Neck No headache 2011 Ears/Nose/Throat/Neck hearing loss 2011 Respiratory No cough 07/07/2011 Respiratory No chest congestion 2011 Respiratory No chest tightness 2011 Gastrointestinal No abdominal pain 2011 Physical Exam Exam Name System Name Item Name Status Result Effective Dates Notes Full Exam - Dermatology Constitutional general appearance Overall: well nourished 06/14/2017 None Full Exam - Dermatology Constitutional general appearance Overall: well developed 06/14/2017 None Full Exam - Dermatology Constitutional general appearance Overall: in no acute distress 06/14/2017 None Full Exam - Dermatology Eyes conjunctiva/ eyelids Overall: clear conjunctiva bilaterally 06/14/2017 None Full Exam - Dermatology Eyes conjunctiva/ eyelids Overall: clear corneas 06/14/2017 None Full Exam - Dermatology Eyes conjunctiva/ eyelids Overall: normal eyelids 06/14/2017 None Full Exam - Dermatology Ears/Nose/Throat lips/teeth/gingiva Overall: benign lips 06/14/2017 None Full Exam - Dermatology Ears/Nose/Throat oropharynx Overall: clear oral mucosa 06/14/2017 None Full Exam - Dermatology Respiratory respiratory effort/rhythm Overall: normal rate 06/14/2017 None Full Exam - Dermatology Respiratory respiratory effort/rhythm Overall: no retractions 06/14/2017 None Full Exam - Dermatology Respiratory auscultation Overall: breath sounds clear bilaterally 06/14/2017 None Full Exam - Dermatology Cardiovascular peripheral vascular system Overall: S1S2 06/14/2017 None Full Exam - Dermatology Musculoskeletal head and neck Overall: head atraumatic 06/14/2017 None Full Exam - Dermatology Integument insp & palp - left upper extremity Lesion: fissure 06/14/2017 Dry, cracked area to finger, non tender, no erythema, warmth, or drainage noted Full Exam - Dermatology Integument insp & palp - left upper extremity Length: 1cm 06/14/2017 None Full Exam - Dermatology Integument insp & palp - left upper extremity Location: on the fingers 06/14/2017 index Full Exam - Dermatology Psychiatric orientation Overall: oriented to person, place and time 06/14/2017 None Full Exam - Dermatology Psychiatric mood and affect Affect: flat 06/14/2017 None Full Exam - Dermatology Psychiatric mood and affect Overall: normal mood and affect 06/14/2017 None Full Exam - General 1994 Constitutional general appearance Overall: well developed 04/06/2016 None Full Exam - General 1994 Constitutional general appearance Overall: in no acute distress 04/06/2016 None Full Exam - General 1994 Constitutional general appearance Overall: well nourished 04/06/2016 None Full Exam - General 1994 Eyes pupils and irises Overall: pupils equal, round, reactive to light and accomodation 04/06/2016 None Full Exam - General 1994 Ears/Nose/Throat external ear Overall: normal appearance 04/06/2016 None Full Exam - General 1994 Ears/Nose/Throat external nose Overall: benign appearance 04/06/2016 None Full Exam - General 1994 Ears/Nose/Throat otoscopic exam Overall: tympanic membranes clear 04/06/2016 None Full Exam - General 1994 Ears/Nose/Throat otoscopic exam External auditory canal: a normal exam 04/06/2016 None Full Exam - General 1994 Ears/Nose/Throat otoscopic exam External auditory canal: partial cerumen occlusion 04/06/2016 None Full Exam - General 1994 Ears/Nose/Throat oral cavity/pharynx/larynx Overall: oropharyngeal mucosa clear 04/06/2016 None Full Exam - General 1994 Respiratory auscultation Overall: breath sounds clear bilaterally 04/06/2016 None Full Exam - General 1994 Respiratory respiratory effort/rhythm Overall: no retractions 04/06/2016 None Full Exam - General 1994 Respiratory respiratory effort/rhythm Overall: normal rate 04/06/2016 None Full Exam - General 1994 Cardiovascular auscultation of heart Overall: regular rate 04/06/2016 None Full Exam - General 1994 Cardiovascular auscultation of heart Overall: normal heart sounds 04/06/2016 None Full Exam - General 1994 Abdomen abdominal exam Overall: no tenderness 04/06/2016 None Full Exam - General 1994 Abdomen abdominal exam Overall: normal bowel sounds 04/06/2016 None Full Exam - General 1994 Musculoskeletal head and neck Overall: head atraumatic 04/06/2016 None Full Exam - General 1994 Musculoskeletal head and neck Overall: cervical spine benign 04/06/2016 None Full Exam - General 1994 Neurologic gait Overall: no ataxia, no unsteadiness 04/06/2016 None Full Exam - General 1994 Neurologic cranial nerves Overall: crainial nerves 2 - 12 grossly intact 04/06/2016 None Full Exam - General 1994 Psychiatric orientation/consciousness Overall: oriented to person, place and time 04/06/2016 None Full Exam - General 1994 Psychiatric mood and affect Mood: depressed 04/06/2016 None Full Exam - General 1994 Psychiatric mood and affect Affect: flat 04/06/2016 None Full Exam - General 1994 Psychiatric mood and affect Appropriateness: appropriate emotional responses 04/06/2016 None Full Exam - General 1994 Constitutional general appearance Overall: well developed 09/02/2015 None Full Exam - General 1994 Constitutional general appearance Overall: in no acute distress 09/02/2015 None Full Exam - General 1994 Constitutional general appearance Overall: well nourished 09/02/2015 None Full Exam - General 1994 Eyes pupils and irises Overall: pupils equal, round, reactive to light and accomodation 09/02/2015 None Full Exam - General 1994 Ears/Nose/Throat oral cavity/pharynx/larynx Overall: oral mucosa clear 09/02/2015 None Full Exam - General 1994 Respiratory auscultation Overall: breath sounds clear bilaterally 09/02/2015 None Full Exam - General 1994 Respiratory respiratory effort/rhythm Overall: no retractions 09/02/2015 None Full Exam - General 1994 Respiratory respiratory effort/rhythm Overall: normal rate 09/02/2015 None Full Exam - General 1994 Cardiovascular auscultation of heart Overall: regular rate 09/02/2015 None Full Exam - General 1994 Cardiovascular auscultation of heart Overall: normal heart sounds 09/02/2015 None Full Exam - General 1994 Musculoskeletal head and neck Overall: head atraumatic 09/02/2015 None Full Exam - General 1994 Musculoskeletal head and neck Overall: cervical spine benign 09/02/2015 None Full Exam - General 1994 Neurologic gait Overall: no ataxia, no unsteadiness 09/02/2015 None Full Exam - General 1994 Neurologic cranial nerves Overall: crainial nerves 2 - 12 grossly intact 09/02/2015 None Full Exam - General 1994 Psychiatric orientation/consciousness Overall: oriented to person, place and time 09/02/2015 None Full Exam - General 1994 Psychiatric mood and affect Mood: depressed 09/02/2015 None Full Exam - General 1994 Psychiatric mood and affect Affect: flat 09/02/2015 None Full Exam - General 1994 Psychiatric mood and affect Appropriateness: appropriate emotional responses 09/02/2015 None Full Exam - General 1994 Ears/Nose/Throat lips/teeth/gingiva Overall: benign lips 09/02/2015 None Full Exam - General 1994 Musculoskeletal lower extremity Inspection - foot: redness 09/02/2015 great toe - ingrown toenail Full Exam - General 1994 Musculoskeletal lower extremity Palpation - foot: tender 09/02/2015 None Full Exam - General 1994 Constitutional general appearance Overall: well developed 07/23/2015 None Full Exam - General 1994 Constitutional general appearance Overall: in no acute distress 07/23/2015 None Full Exam - General 1994 Constitutional general appearance Overall: well nourished 07/23/2015 None Full Exam - General 1994 Eyes pupils and irises Overall: pupils equal, round, reactive to light and accomodation 07/23/2015 None Full Exam - General 1994 Ears/Nose/Throat otoscopic exam Overall: tympanic membranes clear 07/23/2015 None Full Exam - General 1994 Ears/Nose/Throat otoscopic exam External auditory canal: a normal exam 07/23/2015 None Full Exam - General 1994 Ears/Nose/Throat otoscopic exam External auditory canal: partial cerumen occlusion 07/23/2015 None Full Exam - General 1994 Ears/Nose/Throat oral cavity/pharynx/larynx Overall: oropharyngeal mucosa clear 07/23/2015 None Full Exam - General 1994 Respiratory auscultation Overall: breath sounds clear bilaterally 07/23/2015 None Full Exam - General 1994 Respiratory respiratory effort/rhythm Overall: no retractions 07/23/2015 None Full Exam - General 1994 Respiratory respiratory effort/rhythm Overall: normal rate 07/23/2015 None Full Exam - General 1994 Cardiovascular auscultation of heart Overall: regular rate 07/23/2015 None Full Exam - General 1994 Cardiovascular auscultation of heart Overall: normal heart sounds 07/23/2015 None Full Exam - General 1994 Abdomen abdominal exam Overall: no tenderness 07/23/2015 None Full Exam - General 1994 Abdomen abdominal exam Overall: normal bowel sounds 07/23/2015 None Full Exam - General 1994 Musculoskeletal head and neck Overall: head atraumatic 07/23/2015 None Full Exam - General 1994 Musculoskeletal head and neck Overall: cervical spine benign 07/23/2015 None Full Exam - General 1994 Neurologic gait Overall: no ataxia, no unsteadiness 07/23/2015 None Full Exam - General 1994 Neurologic cranial nerves Overall: crainial nerves 2 - 12 grossly intact 07/23/2015 None Full Exam - General 1994 Psychiatric orientation/consciousness Overall: oriented to person, place and time 07/23/2015 None Full Exam - General 1994 Psychiatric mood and affect Mood: depressed 07/23/2015 None Full Exam - General 1994 Psychiatric mood and affect Affect: flat 07/23/2015 None Full Exam - General 1994 Psychiatric mood and affect Appropriateness: appropriate emotional responses 07/23/2015 None Full Exam - General 1994 Ears/Nose/Throat oral cavity/pharynx/larynx Overall: oral mucosa clear 07/23/2015 None Full Exam - General 1994 Musculoskeletal lower extremity Inspection - foot: redness 07/23/2015 great toe Full Exam - General 1994 Musculoskeletal lower extremity Palpation - foot: tender 07/23/2015 great toe Full Exam - General 1994 Constitutional general appearance Overall: well developed 06/05/2015 None Full Exam - General 1994 Constitutional general appearance Overall: in no acute distress 06/05/2015 None Full Exam - General 1994 Constitutional general appearance Overall: well nourished 06/05/2015 None Full Exam - General 1994 Eyes pupils and irises Overall: pupils equal, round, reactive to light and accomodation 06/05/2015 None Full Exam - General 1994 Ears/Nose/Throat external ear Overall: normal appearance 06/05/2015 None Full Exam - General 1994 Ears/Nose/Throat external nose Overall: benign appearance 06/05/2015 None Full Exam - General 1994 Ears/Nose/Throat otoscopic exam External auditory canal: a normal exam 06/05/2015 None Full Exam - General 1994 Ears/Nose/Throat oral cavity/pharynx/larynx Overall: oropharyngeal mucosa clear 06/05/2015 None Full Exam - General 1994 Respiratory auscultation Overall: breath sounds clear bilaterally 06/05/2015 None Full Exam - General 1994 Respiratory respiratory effort/rhythm Overall: no retractions 06/05/2015 None Full Exam - General 1994 Respiratory respiratory effort/rhythm Overall: normal rate 06/05/2015 None Full Exam - General 1994 Cardiovascular auscultation of heart Overall: regular rate 06/05/2015 None Full Exam - General 1994 Cardiovascular auscultation of heart Overall: normal heart sounds 06/05/2015 None Full Exam - General 1994 Abdomen abdominal exam Overall: no tenderness 06/05/2015 None Full Exam - General 1994 Abdomen abdominal exam Overall: normal bowel sounds 06/05/2015 None Full Exam - General 1994 Musculoskeletal head and neck Overall: head atraumatic 06/05/2015 None Full Exam - General 1994 Musculoskeletal head and neck Overall: cervical spine benign 06/05/2015 None Full Exam - General 1994 Neurologic gait Overall: no ataxia, no unsteadiness 06/05/2015 None Full Exam - General 1994 Neurologic cranial nerves Overall: crainial nerves 2 - 12 grossly intact 06/05/2015 None Full Exam - General 1994 Psychiatric orientation/consciousness Overall: oriented to person, place and time 06/05/2015 None Full Exam - General 1994 Psychiatric mood and affect Mood: depressed 06/05/2015 None Full Exam - General 1994 Psychiatric mood and affect Affect: flat 06/05/2015 None Full Exam - General 1994 Psychiatric mood and affect Appropriateness: appropriate emotional responses 06/05/2015 None Full Exam - General 1994 Ears/Nose/Throat otoscopic exam External auditory canal: partial cerumen occlusion 06/05/2015 None Full Exam - General 1994 Ears/Nose/Throat otoscopic exam Overall: tympanic membranes clear 06/05/2015 None Full Exam - General 1994 Constitutional general appearance Overall: well developed 06/18/2014 None Full Exam - General 1994 Constitutional general appearance Overall: in no acute distress 06/18/2014 None Full Exam - General 1994 Constitutional general appearance Overall: well nourished 06/18/2014 None Full Exam - General 1994 Eyes pupils and irises Overall: pupils equal, round, reactive to light and accomodation 06/18/2014 None Full Exam - General 1994 Ears/Nose/Throat external ear Overall: normal appearance 06/18/2014 None Full Exam - General 1994 Ears/Nose/Throat external nose Overall: benign appearance 06/18/2014 None Full Exam - General 1994 Ears/Nose/Throat otoscopic exam External auditory canal: a normal exam 06/18/2014 None Full Exam - General 1994 Ears/Nose/Throat otoscopic exam External auditory canal: complete cerumen impaction 06/18/2014 None Full Exam - General 1994 Ears/Nose/Throat otoscopic exam Tympanic membrane: a normal exam 06/18/2014 None Full Exam - General 1994 Ears/Nose/Throat otoscopic exam Tympanic membrane: not visualized 06/18/2014 None Full Exam - General 1994 Ears/Nose/Throat oral cavity/pharynx/larynx Overall: oropharyngeal mucosa clear 06/18/2014 None Full Exam - General 1994 Respiratory auscultation Overall: breath sounds clear bilaterally 06/18/2014 None Full Exam - General 1994 Respiratory respiratory effort/rhythm Overall: no retractions 06/18/2014 None Full Exam - General 1994 Respiratory respiratory effort/rhythm Overall: normal rate 06/18/2014 None Full Exam - General 1994 Cardiovascular auscultation of heart Overall: regular rate 06/18/2014 None Full Exam - General 1994 Cardiovascular auscultation of heart Overall: normal heart sounds 06/18/2014 None Full Exam - General 1994 Cardiovascular auscultation of heart Overall: no murmurs 06/18/2014 None Full Exam - General 1994 Musculoskeletal head and neck Overall: head atraumatic 06/18/2014 None Full Exam - General 1994 Musculoskeletal head and neck Overall: cervical spine benign 06/18/2014 None Full Exam - General 1994 Neurologic deep tendon reflexes Overall: deep tendon reflexes intact 06/18/2014 None Full Exam - General 1994 Neurologic gait Overall: no ataxia, no unsteadiness 06/18/2014 None Full Exam - General 1994 Neurologic cranial nerves Overall: crainial nerves 2 - 12 grossly intact 06/18/2014 None Full Exam - General 1994 Psychiatric orientation/consciousness Overall: oriented to person, place and time 06/18/2014 None Full Exam - General 1994 Psychiatric mood and affect Mood: depressed 06/18/2014 None Full Exam - General 1994 Psychiatric mood and affect Affect: flat 06/18/2014 None Full Exam - General 1994 Psychiatric mood and affect Appropriateness: appropriate emotional responses 06/18/2014 None Full Exam - General 1994 Abdomen abdominal exam Overall: no tenderness 06/18/2014 None Full Exam - General 1994 Abdomen abdominal exam Overall: normal bowel sounds 06/18/2014 None Full Exam - General 1994 Constitutional general appearance Overall: well developed 04/04/2014 None Full Exam - General 1994 Constitutional general appearance Overall: in no acute distress 04/04/2014 None Full Exam - General 1994 Constitutional general appearance Overall: well nourished 04/04/2014 None Full Exam - General 1994 Eyes pupils and irises Overall: pupils equal, round, reactive to light and accomodation 04/04/2014 None Full Exam - General 1994 Ears/Nose/Throat external ear Overall: normal appearance 04/04/2014 None Full Exam - General 1994 Ears/Nose/Throat external nose Overall: benign appearance 04/04/2014 None Full Exam - General 1994 Ears/Nose/Throat otoscopic exam External auditory canal: a normal exam 04/04/2014 None Full Exam - General 1994 Ears/Nose/Throat otoscopic exam External auditory canal: complete cerumen impaction 04/04/2014 None Full Exam - General 1994 Ears/Nose/Throat otoscopic exam Tympanic membrane: a normal exam 04/04/2014 None Full Exam - General 1994 Ears/Nose/Throat otoscopic exam Tympanic membrane: not visualized 04/04/2014 None Full Exam - General 1994 Ears/Nose/Throat oral cavity/pharynx/larynx Overall: oropharyngeal mucosa clear 04/04/2014 None Full Exam - General 1994 Respiratory auscultation Overall: breath sounds clear bilaterally 04/04/2014 None Full Exam - General 1994 Respiratory respiratory effort/rhythm Overall: no retractions 04/04/2014 None Full Exam - General 1994 Respiratory respiratory effort/rhythm Overall: normal rate 04/04/2014 None Full Exam - General 1994 Cardiovascular auscultation of heart Overall: regular rate 04/04/2014 None Full Exam - General 1994 Cardiovascular auscultation of heart Overall: normal heart sounds 04/04/2014 None Full Exam - General 1994 Cardiovascular auscultation of heart Overall: no murmurs 04/04/2014 None Full Exam - General 1994 Musculoskeletal head and neck Overall: head atraumatic 04/04/2014 None Full Exam - General 1994 Musculoskeletal head and neck Overall: cervical spine benign 04/04/2014 None Full Exam - General 1994 Neurologic deep tendon reflexes Overall: deep tendon reflexes intact 04/04/2014 None Full Exam - General 1994 Neurologic gait Overall: no ataxia, no unsteadiness 04/04/2014 None Full Exam - General 1994 Neurologic cranial nerves Overall: crainial nerves 2 - 12 grossly intact 04/04/2014 None Full Exam - General 1994 Psychiatric orientation/consciousness Overall: oriented to person, place and time 04/04/2014 None Full Exam - General 1994 Psychiatric mood and affect Mood: depressed 04/04/2014 None Full Exam - General 1994 Psychiatric mood and affect Affect: flat 04/04/2014 None Full Exam - General 1994 Psychiatric mood and affect Appropriateness: appropriate emotional responses 04/04/2014 None Full Exam - General 1994 Constitutional general appearance Overall: well developed 08/09/2013 None Full Exam - General 1994 Constitutional general appearance Overall: in no acute distress 08/09/2013 None Full Exam - General 1994 Constitutional general appearance Overall: well nourished 08/09/2013 None Full Exam - General 1994 Eyes pupils and irises Overall: pupils equal, round, reactive to light and accomodation 08/09/2013 None Full Exam - General 1994 Ears/Nose/Throat external ear Overall: normal appearance 08/09/2013 None Full Exam - General 1994 Ears/Nose/Throat external nose Overall: benign appearance 08/09/2013 None Full Exam - General 1994 Ears/Nose/Throat otoscopic exam External auditory canal: a normal exam 08/09/2013 None Full Exam - General 1994 Ears/Nose/Throat otoscopic exam External auditory canal: complete cerumen impaction 08/09/2013 None Full Exam - General 1994 Ears/Nose/Throat otoscopic exam Tympanic membrane: a normal exam 08/09/2013 None Full Exam - General 1994 Ears/Nose/Throat otoscopic exam Tympanic membrane: not visualized 08/09/2013 None Full Exam - General 1994 Ears/Nose/Throat oral cavity/pharynx/larynx Overall: oropharyngeal mucosa clear 08/09/2013 None Full Exam - General 1994 Respiratory auscultation Overall: breath sounds clear bilaterally 08/09/2013 None Full Exam - General 1994 Respiratory respiratory effort/rhythm Overall: no retractions 08/09/2013 None Full Exam - General 1994 Respiratory respiratory effort/rhythm Overall: normal rate 08/09/2013 None Full Exam - General 1995 Cardiovascular auscultation of heart Overall: regular rate 08/09/2013 None Full Exam - General 1995 Cardiovascular auscultation of heart Overall: normal heart sounds 08/09/2013 None Full Exam - General 1994 Cardiovascular auscultation of heart Overall: no murmurs 08/09/2013 None Full Exam - General 1995 Musculoskeletal head and neck Overall: head atraumatic 08/09/2013 None Full Exam - General 1995 Musculoskeletal head and neck Overall: cervical spine benign 08/09/2013 None Full Exam - General 1995 Neurologic deep tendon reflexes Overall: deep tendon reflexes intact 08/09/2013 None Full Exam - General 1995 Neurologic gait Overall: no ataxia, no unsteadiness 08/09/2013 None Full Exam - General 1995 Neurologic cranial nerves Overall: crainial nerves 2 - 12 grossly intact 08/09/2013 None Full Exam - General 1994 Psychiatric orientation/consciousness Overall: oriented to person, place and time 08/09/2013 None Full Exam - General 1994 Psychiatric mood and affect Mood: depressed 08/09/2013 None Full Exam - General 1994 Psychiatric mood and affect Affect: flat 08/09/2013 None Full Exam - General 1994 Psychiatric mood and affect Appropriateness: appropriate emotional responses 08/09/2013 None Full Exam - General 1994 Constitutional general appearance Overall: well developed 08/08/2012 None Full Exam - General 1994 Constitutional general appearance Overall: in no acute distress 08/08/2012 None Full Exam - General 1994 Constitutional general appearance Overall: well nourished 08/08/2012 None Full Exam - General 1994 Eyes pupils and irises Overall: pupils equal, round, reactive to light and accomodation 08/08/2012 None Full Exam - General 1994 Ears/Nose/Throat external ear Overall: normal appearance 08/08/2012 None Full Exam - General 1994 Ears/Nose/Throat external nose Overall: benign appearance 08/08/2012 None Full Exam - General 1994 Ears/Nose/Throat oral cavity/pharynx/larynx Overall: oropharyngeal mucosa clear 08/08/2012 None Full Exam - General 1994 Respiratory auscultation Overall: breath sounds clear bilaterally 08/08/2012 None Full Exam - General 1994 Respiratory respiratory effort/rhythm Overall: no retractions 08/08/2012 None Full Exam - General 1994 Respiratory respiratory effort/rhythm Overall: normal rate 08/08/2012 None Full Exam - General 1994 Cardiovascular auscultation of heart Overall: regular rate 08/08/2012 None Full Exam - General 1994 Cardiovascular auscultation of heart Overall: normal heart sounds 08/08/2012 None Full Exam - General 1994 Cardiovascular auscultation of heart Overall: no murmurs 08/08/2012 None Full Exam - General 1995 Musculoskeletal head and neck Overall: head atraumatic 08/08/2012 None Full Exam - General 1994 Musculoskeletal head and neck Overall: cervical spine benign 08/08/2012 None Full Exam - General 1994 Neurologic deep tendon reflexes Overall: deep tendon reflexes intact 08/08/2012 None Full Exam - General 1994 Neurologic gait Overall: no ataxia, no unsteadiness 08/08/2012 None Full Exam - General 1994 Neurologic cranial nerves Overall: crainial nerves 2 - 12 grossly intact 08/08/2012 None Full Exam - General 1994 Psychiatric orientation/consciousness Overall: oriented to person, place and time 08/08/2012 None Full Exam - General 1994 Psychiatric mood and affect Mood: depressed 08/08/2012 None Full Exam - General 1994 Psychiatric mood and affect Affect: flat 08/08/2012 None Full Exam - General 1994 Psychiatric mood and affect Appropriateness: appropriate emotional responses 08/08/2012 None Full Exam - General 1995 Ears/Nose/Throat otoscopic exam External auditory canal: a normal exam 08/08/2012 None Full Exam - General 1995 Ears/Nose/Throat otoscopic exam External auditory canal: complete cerumen impaction 08/08/2012 None Full Exam - General 1995 Ears/Nose/Throat otoscopic exam Tympanic membrane: a normal exam 08/08/2012 None Full Exam - General 1995 Ears/Nose/Throat otoscopic exam Tympanic membrane: not visualized 08/08/2012 None Full Exam - General 1994 Eyes pupils and irises Overall: pupils equal, round, reactive to light and accomodation 01/26/2012 None Full Exam - General 1994 Ears/Nose/Throat external ear Overall: normal appearance 01/26/2012 None Full Exam - General 1994 Ears/Nose/Throat external nose Overall: benign appearance 01/26/2012 None Full Exam - General 1995 Ears/Nose/Throat otoscopic exam Overall: tympanic membranes clear 01/26/2012 None Full Exam - General 1994 Ears/Nose/Throat oral cavity/pharynx/larynx Overall: oropharyngeal mucosa clear 01/26/2012 None Full Exam - General 1994 Respiratory auscultation Overall: breath sounds clear bilaterally 01/26/2012 None Full Exam - General 1995 Respiratory respiratory effort/rhythm Overall: no retractions 01/26/2012 None Full Exam - General 1995 Respiratory respiratory effort/rhythm Overall: normal rate 01/26/2012 None Full Exam - General 1995 Cardiovascular auscultation of heart Overall: regular rate 01/26/2012 None Full Exam - General 1995 Cardiovascular auscultation of heart Overall: normal heart sounds 01/26/2012 None Full Exam - General 1994 Cardiovascular auscultation of heart Overall: no murmurs 01/26/2012 None Full Exam - General 1995 Musculoskeletal head and neck Overall: head atraumatic 01/26/2012 None Full Exam - General 1995 Musculoskeletal head and neck Overall: cervical spine benign 01/26/2012 None Full Exam - General 1994 Neurologic deep tendon reflexes Overall: deep tendon reflexes intact 01/26/2012 None Full Exam - General 1994 Constitutional general appearance Overall: well developed 01/26/2012 None Full Exam - General 1994 Constitutional general appearance Overall: in no acute distress 01/26/2012 None Full Exam - General 1994 Constitutional general appearance Overall: well nourished 01/26/2012 None Full Exam - General 1994 Neurologic gait Overall: no ataxia, no unsteadiness 01/26/2012 None Full Exam - General 1994 Neurologic cranial nerves Overall: crainial nerves 2 - 12 grossly intact 01/26/2012 None Full Exam - General 1994 Psychiatric orientation/consciousness Overall: oriented to person, place and time 01/26/2012 None Full Exam - General 1994 Musculoskeletal spine, ribs and pelvis Spine: tender @ lumbar spine 01/26/2012 None Full Exam - General 1994 Ears/Nose/Throat oral cavity/pharynx/larynx Overall: oropharyngeal mucosa clear 11/09/2011 None Full Exam - General 1994 Respiratory auscultation Overall: breath sounds clear bilaterally 11/09/2011 None Full Exam - General 1994 Respiratory respiratory effort/rhythm Overall: no retractions 11/09/2011 None Full Exam - General 1994 Respiratory respiratory effort/rhythm Overall: normal rate 11/09/2011 None Full Exam - General 1994 Cardiovascular auscultation of heart Overall: regular rate 11/09/2011 None Full Exam - General 1994 Cardiovascular auscultation of heart Overall: normal heart sounds 11/09/2011 None Full Exam - General 1994 Cardiovascular auscultation of heart Overall: no murmurs 11/09/2011 None Full Exam - General 1995 Musculoskeletal head and neck Overall: head atraumatic 11/09/2011 None Full Exam - General 1994 Musculoskeletal head and neck Overall: cervical spine benign 11/09/2011 None Full Exam - General 1995 Neurologic deep tendon reflexes Overall: deep tendon reflexes intact 11/09/2011 None Full Exam - General 1995 Neurologic gait Overall: no ataxia, no unsteadiness 11/09/2011 None Full Exam - General 1994 Neurologic cranial nerves Overall: crainial nerves 2 - 12 grossly intact 11/09/2011 None Full Exam - General 1994 Psychiatric orientation/consciousness Overall: oriented to person, place and time 11/09/2011 None Full Exam - General 1995 Psychiatric mood and affect Mood: depressed 11/09/2011 None Full Exam - General 1995 Constitutional general appearance Overall: well developed 11/09/2011 None Full Exam - General 1994 Constitutional general appearance Overall: in no acute distress 11/09/2011 None Full Exam - General 1995 Constitutional general appearance Overall: well nourished 11/09/2011 None Full Exam - General 1994 Eyes pupils and irises Overall: pupils equal, round, reactive to light and accomodation 11/09/2011 None Full Exam - General 1995 Ears/Nose/Throat external ear Overall: normal appearance 11/09/2011 None Full Exam - General 1995 Ears/Nose/Throat external nose Overall: benign appearance 11/09/2011 None Full Exam - General 1995 Ears/Nose/Throat otoscopic exam Overall: tympanic membranes clear 11/09/2011 None Full Exam - General 1994 Psychiatric mood and affect Affect: flat 11/09/2011 None Full Exam - General 1994 Psychiatric mood and affect Appropriateness: appropriate emotional responses 11/09/2011 None Full Exam - General 1994 Cardiovascular auscultation of heart Overall: regular rate 09/09/2011 None Full Exam - General 1994 Cardiovascular auscultation of heart Overall: normal heart sounds 09/09/2011 None Full Exam - General 1994 Cardiovascular auscultation of heart Overall: no murmurs 09/09/2011 None Full Exam - General 1994 Constitutional general appearance Overall: well developed 09/09/2011 None Full Exam - General 1994 Constitutional general appearance Overall: in no acute distress 09/09/2011 None Full Exam - General 1994 Constitutional general appearance Overall: well nourished 09/09/2011 None Full Exam - General 1994 Ears/Nose/Throat external ear Overall: normal appearance 09/09/2011 None Full Exam - General 1994 Ears/Nose/Throat external nose Overall: benign appearance 09/09/2011 None Full Exam - General 1994 Eyes pupils and irises Overall: pupils equal, round, reactive to light and accomodation 09/09/2011 None Full Exam - General 1994 Musculoskeletal head and neck Overall: head atraumatic 09/09/2011 None Full Exam - General 1994 Musculoskeletal head and neck Overall: cervical spine benign 09/09/2011 None Full Exam - General 1994 Neurologic deep tendon reflexes Overall: deep tendon reflexes intact 09/09/2011 None Full Exam - General 1994 Neurologic gait Overall: no ataxia, no unsteadiness 09/09/2011 None Full Exam - General 1994 Neurologic cranial nerves Overall: crainial nerves 2 - 12 grossly intact 09/09/2011 None Full Exam - General 1994 Psychiatric orientation/consciousness Overall: oriented to person, place and time 09/09/2011 None Full Exam - General 1994 Psychiatric mood and affect Mood: depressed 09/09/2011 None Full Exam - General 1994 Psychiatric mood and affect Affect: flat 09/09/2011 None Full Exam - General 1994 Psychiatric mood and affect Appropriateness: appropriate emotional responses 09/09/2011 None Full Exam - General 1994 Respiratory auscultation Overall: breath sounds clear bilaterally 09/09/2011 None Full Exam - General 1994 Respiratory respiratory effort/rhythm Overall: no retractions 09/09/2011 None Full Exam - General 1994 Respiratory respiratory effort/rhythm Overall: normal rate 09/09/2011 None Full Exam - General 1994 Ears/Nose/Throat otoscopic exam Overall: external auditory canals clear 09/09/2011 None Full Exam - General 1994 Ears/Nose/Throat otoscopic exam Tympanic membrane: air- fluid level 09/09/2011 None Full Exam - General 1994 Ears/Nose/Throat oral cavity/pharynx/larynx Posterior Pharynx: cobblestoned 09/09/2011 None Full Exam - General 1994 Ears/Nose/Throat oral cavity/pharynx/larynx Oral mucosa: moist 09/09/2011 None Full Exam - General 1994 Constitutional general appearance Overall: well developed 08/03/2011 None Full Exam - General 1994 Constitutional general appearance Overall: in no acute distress 08/03/2011 None Full Exam - General 1994 Constitutional general appearance Overall: well nourished 08/03/2011 None Full Exam - General 1994 Eyes pupils and irises Overall: pupils equal, round, reactive to light and accomodation 08/03/2011 None Full Exam - General 1995 Ears/Nose/Throat external ear Overall: normal appearance 08/03/2011 None Full Exam - General 1995 Ears/Nose/Throat external nose Overall: benign appearance 08/03/2011 None Full Exam - General 1995 Ears/Nose/Throat otoscopic exam Overall: tympanic membranes clear 08/03/2011 None Full Exam - General 1995 Ears/Nose/Throat oral cavity/pharynx/larynx Overall: oropharyngeal mucosa clear 08/03/2011 None Full Exam - General 1995 Respiratory auscultation Overall: breath sounds clear bilaterally 08/03/2011 None Full Exam - General 1995 Respiratory respiratory effort/rhythm Overall: no retractions 08/03/2011 None Full Exam - General 1994 Respiratory respiratory effort/rhythm Overall: normal rate 08/03/2011 None Full Exam - General 1994 Cardiovascular auscultation of heart Overall: regular rate 08/03/2011 None Full Exam - General 1994 Cardiovascular auscultation of heart Overall: normal heart sounds 08/03/2011 None Full Exam - General 1994 Cardiovascular auscultation of heart Overall: no murmurs 08/03/2011 None Full Exam - General 1994 Musculoskeletal head and neck Overall: head atraumatic 08/03/2011 None Full Exam - General 1994 Musculoskeletal head and neck Overall: cervical spine benign 08/03/2011 None Full Exam - General 1994 Neurologic deep tendon reflexes Overall: deep tendon reflexes intact 08/03/2011 None Full Exam - General 1994 Neurologic gait Overall: no ataxia, no unsteadiness 08/03/2011 None Full Exam - General 1994 Neurologic cranial nerves Overall: crainial nerves 2 - 12 grossly intact 08/03/2011 None Full Exam - General 1994 Psychiatric orientation/consciousness Overall: oriented to person, place and time 08/03/2011 None Full Exam - General 1994 Psychiatric mood and affect Mood: depressed 08/03/2011 None Full Exam - General 1994 Psychiatric mood and affect Affect: flat 08/03/2011 None Full Exam - General 1994 Psychiatric mood and affect Appropriateness: appropriate emotional responses 08/03/2011 None Full Exam - General 1994 Neck thyroid Overall: normal size None Full Exam - General 1994 Neck thyroid Overall: no mass lesions 07/07/2011 None Full Exam - General 1994 Neck inspection of neck Overall: normal size 07/07/2011 None Full Exam - General 1994 Neck inspection of neck Overall: no masses 07/07/2011 None Full Exam - General 1994 Psychiatric orientation/consciousness Overall: oriented to person, place and time 07/07/2011 None Full Exam - General 1994 Psychiatric mood and affect Affect: flat 07/07/2011 None Full Exam - General 1994 Psychiatric mood and affect Mood: depressed 07/07/2011 None Full Exam - General 1994 Psychiatric mood and affect Appropriateness: appropriate emotional responses 07/07/2011 None Full Exam - General 1994 Constitutional general appearance Overall: well nourished 07/07/2011 None Full Exam - General 1994 Constitutional general appearance Overall: well developed 07/07/2011 None Full Exam - General 1994 Constitutional general appearance Overall: in no acute distress 07/07/2011 None Full Exam - General 1994 Eyes pupils and irises Overall: pupils equal, round, reactive to light and accomodation 07/07/2011 None Full Exam - General 1994 Ears/Nose/Throat otoscopic exam Overall: tympanic membranes clear 07/07/2011 None Full Exam - General 1994 Ears/Nose/Throat otoscopic exam Overall: external auditory canals clear 07/07/2011 None Full Exam - General 1995 Ears/Nose/Throat oral cavity/pharynx/larynx Overall: oropharyngeal mucosa clear 07/07/2011 None Full Exam - General 1995 Ears/Nose/Throat oral cavity/pharynx/larynx Overall: no masses 07/07/2011 None Full Exam - General 1995 Ears/Nose/Throat oral cavity/pharynx/larynx Overall: oral mucosa clear 07/07/2011 None Full Exam - General 1994 Ears/Nose/Throat external nose Overall: benign appearance 07/07/2011 None Full Exam - General 1994 Ears/Nose/Throat external ear Overall: normal appearance 07/07/2011 None Full Exam - General 1994 Neurologic deep tendon reflexes Overall: deep tendon reflexes intact 07/07/2011 None Full Exam - General 1994 Neurologic gait Overall: no ataxia, no unsteadiness 07/07/2011 None Full Exam - General 1994 Neurologic cranial nerves Overall: crainial nerves 2 - 12 grossly intact 07/07/2011 None Full Exam - General 1994 Musculoskeletal head and neck Overall: cervical spine benign 07/07/2011 None Full Exam - General 1994 Musculoskeletal head and neck Overall: head atraumatic 07/07/2011 None Full Exam - General 1994 Abdomen abdominal exam Overall: no tenderness 07/07/2011 None Full Exam - General 1994 Abdomen abdominal exam Overall: normal bowel sounds 07/07/2011 None Full Exam - General 1994 Cardiovascular auscultation of heart Overall: regular rate 07/07/2011 None Full Exam - General 1994 Cardiovascular auscultation of heart Overall: normal heart sounds 07/07/2011 None Full Exam - General 1994 Cardiovascular auscultation of heart Overall: no murmurs 07/07/2011 None Full Exam - General 1994 Respiratory auscultation Overall: breath sounds clear bilaterally 07/07/2011 None Full Exam - General 1994 Respiratory respiratory effort/rhythm Overall: normal rate 07/07/2011 None Full Exam - General 1994 Respiratory respiratory effort/rhythm Overall: no retractions 07/07/2011 None Full Exam - General 1994 Neurologic mental status Overall: alert 07/07/2011 [facility] Mental Status Exam - performed in clinic today - score of 22/30 - MCI - pt had most difficulty with recall of items Procedures Procedure Codes Date FLU VAC NO PRSV 4 DIONY 3 YRS+ CPT-4: 29062 03/15/2017 ADMIN INFLUENZA VIRUS VAC CPT-4: G0008 03/15/2017 REMOVE IMPACTED EAR WAX UNI CPT-4: 17530 08/08/2012 KETOROLAC TROMETHAMINE INJ CPT-4: J1885 01/26/2012 THER/PROPH/DIAG INJ SC/IM CPT-4: 85219 09/09/2011 TRIAMCINOLONE ACET INJ NOS CPT-4: J3301 09/09/2011 ROCEPHIN, PER 250 MG CPT-4: J0696 09/09/2011 PRESCRIP TRANSMIT VIA ERX SY CPT-4: G8553 09/09/2011 Vital Signs Date Vital 06/14/2017 Blood Pressure 1: 134/70 Code : 8480-6 BMI: 22.6 Code : 38731-7 Heart Rate 1 : 62 bpm Height: 5'10" SpO2: 98% Weight: 155 lbs 04/06/2016 Blood Pressure 1: 118/64 Code : 8480-6 BMI: 22.4 Code : 64495-1 Heart Rate 1 : 54 bpm Height: 5'10" SpO2: 96% Weight: 154 lbs 09/02/2015 Blood Pressure 1: 114/66 Code : 8480-6 BMI: 22.7 Code : 24095-8 Heart Rate 1 : 65 bpm Height: 5'10" Weight: 156 lbs 07/23/2015 Blood Pressure 1: 130/64 Code : 8480-6 BMI: 22.7 Code : 13577-4 Heart Rate 1 : 61 bpm Height: 5'10" SpO2: 96% Weight: 156 lbs 06/05/2015 Blood Pressure 1: 140/72 Code : 8480-6 BMI: 22.7 Code : 13614-1 Heart Rate 1 : 46 bpm Height: 5'10" SpO2: 97% Weight: 156 lbs 10/26/2014 Blood Pressure 1: 130/82 Code : 8480-6 Heart Rate 1: 53 bpm 06/18/2014 Blood Pressure 1: 125/70 Code : 8480-6 BMI: 21.7 Code : 71911-6 Heart Rate 1 : 62 bpm Height: 5'10" SpO2: 98% Weight: 149 lbs 04/04/2014 Blood Pressure 1: 122/64 Code : 8480-6 BMI: 22.3 Code : 26753-5 Heart Rate 1 : 78 bpm Height: 5'10" Weight: 153 lbs 08/09/2013 Blood Pressure 1: 128/80 Code : 8480-6 BMI: 22.9 Code : 67429-4 Heart Rate 1 : 56 bpm Height: 5'10" Weight: 157 lbs 08/08/2012 Blood Pressure 1: 128/84 Code : 8480-6 BMI: 23.9 Code : 23224-6 Heart Rate 1 : 64 bpm Height: 5'10" Weight: 164 lbs 01/26/2012 Blood Pressure 1: 110/66 Code : 8480-6 Heart Rate 1: 64 bpm Respiratory Rate : 12 bpm Weight: 161 lbs 11/09/2011 Blood Pressure 1: 124/76 Code : 8480-6 BMI: 23.3 Code : 87655-2 Heart Rate 1 : 73 bpm Height: 5'10" Respiratory Rate: 18 bpm Weight: 160 lbs 09/09/2011 Blood Pressure 1: 126/64 Code : 8480-6 BMI: 24.3 Code : 15367-6 Heart Rate 1 : 70 bpm Height: 5'10" Weight: 167 lbs 08/03/2011 Blood Pressure 1: 104/70 Code : 8480-6 Heart Rate 1: 68 bpm Weight: 163 lbs 07/07/2011 Blood Pressure 1: 120/74 Code : 8480-6 BMI: 24.0 Code : 94512-2 Heart Rate 1 : 60 bpm Height: 5'10" Respiratory Rate: 12 bpm Weight: 165 lbs Functional Status No Functional Status data History of Present Illness Symptom Name Status Result Effective Date Notes cellulitis Onset and Resolution ongoing 06/14/2017 None cellulitis Limitation on Activities does not limit activities 06/14/2017 None cellulitis Initial treatment OTC medications 06/14/2017 None cellulitis Pertinent Findings Denies bleeding 06/14/2017 None cellulitis Pertinent Findings Denies pain 06/14/2017 None medication follow up Significant Past Medical History dementia 04/06/2016 None medication follow up Significant Past Medical History medication use 04/06/2016 None hypertension Quality chronic 04/06/2016 None hypertension Onset and Resolution gradual in onset 04/06/2016 None hypertension Onset of Symptom during adulthood 04/06/2016 None hypertension Triggers no known associated factors 04/06/2016 None hypertension Pertinent Findings Denies dyspnea 04/06/2016 None hypertension Severity mild 04/06/2016 None toe pain due to infection Quality dull pain 09/02/2015 None toe pain due to infection Quality intermittent 09/02/2015 None toe pain due to infection Onset of Symptom 4 days ago 09/02/2015 None toe pain due to infection Pertinent Findings pain with movement 09/02/2015 None toe pain due to infection Pertinent Findings stiffness 09/02/2015 None hypertension Onset and Resolution ongoing 09/02/2015 None hypertension Onset of Symptom during adulthood 09/02/2015 None hypertension Blood Pressure Values not checking blood pressure at home 09/02/2015 None toe pain due to infection Mechanism of injury unknown 09/02/2015 None toe pain due to infection Quality dull pain 07/23/2015 None toe pain due to infection Quality intermittent 07/23/2015 None toe pain due to infection Onset of Symptom 4 days ago 07/23/2015 None toe pain due to infection Pertinent Findings stiffness 07/23/2015 None toe pain due to infection Pertinent Findings pain with movement 07/23/2015 None medication follow up Additional Comments medication use 06/05/2015 exolon patches medication follow up Significant Past Medical History dementia 06/05/2015 None medication follow up Significant Past Medical History medication use 06/05/2015 None hypertension Quality chronic 06/05/2015 None hypertension Onset and Resolution gradual in onset 06/05/2015 None hypertension Onset of Symptom during adulthood 06/05/2015 None hypertension Triggers no known associated factors 06/05/2015 None hypertension Pertinent Findings Denies dyspnea 06/05/2015 None hypertension Quality chronic 06/18/2014 None hypertension Onset and Resolution ongoing 06/18/2014 None hypertension Blood Pressure Values patient checking blood pressure at home - did not bring in readings 06/18/2014 None hypertension Severity mild 06/18/2014 None hypertension Significant Medical Conditions cardiac disease 06/18/2014 None hypertension Significant Medical Conditions cerebrovascular accident 06/18/2014 None hypertension Triggers stress 06/18/2014 None hypertension Alleviating Factors medication 06/18/2014 None hypertension Exacerbating Factors change in dietary habits 06/18/2014 None hypertension Exacerbating Factors stress 06/18/2014 None hypertension Pertinent Findings anxiety 06/18/2014 None hypertension Pertinent Findings Denies decreased energy 06/18/2014 None hypertension Pertinent Findings Denies dizziness 06/18/2014 None hypertension Pertinent Findings Denies edema 06/18/2014 None hypertension Pertinent Findings Denies lethargy 06/18/2014 None memory loss Onset and Resolution ongoing 06/18/2014 None memory loss Frequency of Episodes increasing 06/18/2014 None sinus congestion Onset of Symptom 10 days ago 06/18/2014 None sinus congestion Pertinent Findings cough 06/18/2014 None sinus congestion Pertinent Findings Denies facial pain 06/18/2014 None hypertension Quality chronic 04/04/2014 None hypertension Onset and Resolution ongoing 04/04/2014 None hypertension Blood Pressure Values patient checking blood pressure at home - did not bring in readings 04/04/2014 None hypertension Severity mild 04/04/2014 None hypertension Significant Medical Conditions cardiac disease 04/04/2014 None hypertension Significant Medical Conditions cerebrovascular accident 04/04/2014 None hypertension Triggers stress 04/04/2014 None hypertension Alleviating Factors medication 04/04/2014 None hypertension Exacerbating Factors change in dietary habits 04/04/2014 None hypertension Exacerbating Factors stress 04/04/2014 None hypertension Pertinent Findings anxiety 04/04/2014 None hypertension Pertinent Findings Denies decreased energy 04/04/2014 None hypertension Pertinent Findings Denies dizziness 04/04/2014 None hypertension Pertinent Findings Denies edema 04/04/2014 None hypertension Pertinent Findings Denies lethargy 04/04/2014 None memory loss Onset and Resolution ongoing 04/04/2014 None memory loss Frequency of Episodes increasing 04/04/2014 None Hospital Follow Up _ cardiac disease 08/09/2013 None Hospital Follow Up Quality improving 08/09/2013 None Hospital Follow Up Severity mild 08/09/2013 None Hospital Follow Up Pertinent Findings Denies other arthralgias 08/09/2013 None Hospital Follow Up Pertinent Findings Denies pain 08/09/2013 None Hospital Follow Up Pertinent Findings Denies fever 08/09/2013 None hypertension Quality chronic 08/08/2012 None hypertension Onset and Resolution ongoing 08/08/2012 None hypertension Blood Pressure Values patient checking blood pressure at home - did not bring in readings 08/08/2012 None hypertension Severity mild 08/08/2012 None hypertension Significant Medical Conditions cardiac disease 08/08/2012 None hypertension Significant Medical Conditions cerebrovascular accident 08/08/2012 None hypertension Triggers stress 08/08/2012 None hypertension Alleviating Factors medication 08/08/2012 None hypertension Exacerbating Factors change in dietary habits 08/08/2012 None hypertension Exacerbating Factors stress 08/08/2012 None hypertension Pertinent Findings anxiety 08/08/2012 None hypertension Pertinent Findings Denies decreased energy 08/08/2012 None hypertension Pertinent Findings Denies dizziness 08/08/2012 None hypertension Pertinent Findings Denies edema 08/08/2012 None hypertension Pertinent Findings Denies lethargy 08/08/2012 None back pain Location lumbar-sacral spine 01/26/2012 None back pain Onset and Resolution sudden in onset 01/26/2012 None back pain Quality discomfort 01/26/2012 None back pain Pertinent Findings Denies extremity numbness 01/26/2012 None back pain Pertinent Findings Denies extremity weakness 01/26/2012 None back pain Pertinent Findings Denies sleep disturbance 01/26/2012 None back pain Onset of Symptom 3 days ago 01/26/2012 None back pain Limitation on Activities does not limit activities 01/26/2012 None back pain Frequency of Episodes unchanged 01/26/2012 None back pain Triggers activity 01/26/2012 None back pain Initial treatment stretching 01/26/2012 None hypertension Blood Pressure Values not checking blood pressure at home 11/09/2011 None hypertension Severity mild 11/09/2011 None hypertension Alleviating Factors medication 11/09/2011 None rash Location-Extremities on the right palm 11/09/2011 None rash Quality constant 11/09/2011 None rash Quality flaking 11/09/2011 None rash Quality peeling 11/09/2011 None rash Color white 11/08 None rash Onset and Resolution ongoing 11/09/2011 None rash Onset of Symptom as an adult 11/09/2011 None hypertension Quality chronic 11/09/2011 None hypertension Onset and Resolution ongoing 11/09/2011 None hypertension Onset of Symptom during adulthood 11/09/2011 None hypertension Pertinent Findings Denies anxiety 11/09/2011 None hypertension Pertinent Findings confusion 11/09/2011 None hypertension Pertinent Findings Denies lethargy 11/09/2011 None cough Location in the throat 09/09/2011 None cough Quality dry 09/2011 None hypertension Quality chronic 08/03/2011 None hypertension Onset and Resolution ongoing 08/03/2011 None hypertension Blood Pressure Values patient checking blood pressure at home - did not bring in readings 08/03/2011 None hypertension Severity mild 08/03/2011 None hypertension Significant Medical Conditions cardiac disease 08/03/2011 None hypertension Significant Medical Conditions cerebrovascular accident 08/03/2011 None hypertension Triggers stress 08/03/2011 None hypertension Alleviating Factors medication 08/03/2011 None hypertension Exacerbating Factors stress 08/03/2011 None hypertension Exacerbating Factors change in dietary habits 08/03/2011 None hypertension Pertinent Findings anxiety 08/03/2011 None hypertension Pertinent Findings Denies dizziness 08/03/2011 None hypertension Pertinent Findings Denies decreased energy 08/03/2011 None hypertension Pertinent Findings Denies edema 08/03/2011 None hypertension Pertinent Findings Denies lethargy 08/03/2011 None memory loss Onset of Symptom 1 years ago 07/07/2011 None memory loss Pertinent Findings Denies difficulty reading 07/07/2011 None memory loss Pertinent Findings Denies difficulty writing 07/07/2011 None memory loss Pertinent Findings Denies motor deficits 07/07/2011 None memory loss Pertinent Findings Denies personality changes 07/07/2011 None memory loss Triggers no known associated factors 07/07/2011 None memory loss Quality difficulty remembering names 07/07/2011 None memory loss Quality worsening 07/07/2011 None hypertension Quality chronic 07/07/2011 None hypertension Onset and Resolution ongoing 07/07/2011 None hyperlipidemia Quality chronic 07/07/2011 None hyperlipidemia Onset and Resolution ongoing 07/07/2011 None hyperlipidemia Severity mild 07/07/2011 None memory loss Onset of Symptom 6 months ago 07/07/2011 noticed that this summer he seemed to have more trouble with memory of plans, or other events that they have planned. memory loss Limitation on Activities moderately limits activities 07/07/2011 None hypertension Blood Pressure Values patient checking blood pressure at home - did not bring in readings 07/07/2011 None hypertension Severity mild 07/07/2011 None hypertension Alleviating Factors medication 07/07/2011 None hypertension Exacerbating Factors stress 07/07/2011 None hypertension Pertinent Findings Denies anxiety 07/07/2011 None hypertension Pertinent Findings confusion 07/07/2011 None hypertension Pertinent Findings Denies dizziness 07/07/2011 None hypertension Pertinent Findings Denies edema 07/07/2011 None hyperlipidemia Alleviating Factors medication 07/07/2011 None hyperlipidemia Exacerbating Factors diet 07/07/2011 None memory loss Pertinent Findings Denies ataxia 07/07/2011 None Advance Directives No Advance Directive data Encounters Encounter Performer Location Codes Date 69540 EST. PATIENT, LEVEL III Diagnosis: Cellulitis of left finger[ICD10: L03.012] Janay Can MD, [facility] CPT-4: 38001 06/14/2017 ([id number]) 29311 EST. 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 PATIENT, LEVEL IV Diagnosis: Ingrowing nail[ICD10: L60.0] Diagnosis: Unspecified dementia without behavioral disturbance[ICD10: F03.90] Diagnosis: Essential (primary) hypertension[ICD10: I10] Janay Can MD, [facility] CPT-4: 44317 09/02/2015 41156 EST. 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 PATIENT, LEVEL III Diagnosis: Essential (primary) hypertension[ICD10: I10] Diagnosis: Chronic atrial fibrillation[ICD10: I48.2] Diagnosis: Unspecified dementia without behavioral disturbance[ICD10: F03.90] Janay Can MD, [facility] CPT-4: 08786 06/05/2015 ([id number]) Miscellaneous no charge Diagnosis: Blood pressure check[ICD9: V81.1] Doris Can MD, [facility] CPT-4: 30694 10/26/2014 ([id number]) 05253 EST. PATIENT, LEVEL IV Diagnosis: ESSENTIAL HYPERTENSION[ICD9: 401.9] Diagnosis: ATRIAL FIBRILLATION[ICD9: 427.31] Diagnosis: Dementia[ICD9: 294.20] Doris Can MD [facility] CPT-4: 88263 06/18/2014 ([id number]) 25481 EST. PATIENT, LEVEL IV Diagnosis: ESSENTIAL HYPERTENSION[ICD9: 401.9] Diagnosis: ATRIAL FIBRILLATION[ICD9: 427.31] Diagnosis: Dementia[ICD9: 294.20] Doris Can MD [facility] CPT-4: 90064 04/04/2014 ([id number]) 16400 EST. PATIENT, LEVEL IV Diagnosis: Dementia[ICD9: 294.20] Diagnosis: ESSENTIAL HYPERTENSION[ICD9: 401.9] Doris Can MD [facility] CPT-4: 95309 08/09/2013 ([id number]) 34297 EST. PATIENT, LEVEL IV Diagnosis: ESSENTIAL HYPERTENSION[SNOMED: 11390121] Diagnosis: HYPERLIPIDEMIA[ICD9: 272.4] Diagnosis: MILD COGNITIVE IMPAIREMT[ICD9: 331.83] Doris Can MD [facility] CPT-4: 34740 08/08/2012 ([id number]) 33212 EST. PATIENT, LEVEL III Diagnosis: Low back pain[ICD9: 724.2] Doris Can MD [facility] CPT- 4: 66571 01/26/2012 ([id number]) 14770 EST. PATIENT, LEVEL IV Diagnosis: Rash and nonspecific skin eruption[ICD9: 782.1] Diagnosis: ESSENTIAL HYPERTENSION[SNOMED: 04472514] Diagnosis: MILD COGNITIVE IMPAIREMT[ICD9: 331.83] Doris Can MD [facility] CPT-4: 05141 11/09/2011 ([id number]) 52592 EST. PATIENT, LEVEL IV Diagnosis: Cough[ICD9: 786.2] Diagnosis: Chills (without fever)[ICD9: 780.64] Diagnosis: Malaise[ICD9: 780.79] Doris Can MD [facility] CPT-4: 36815 09/09/2011 ([id number]) 29604 EST. PATIENT, LEVEL IV Diagnosis: ESSENTIAL HYPERTENSION[SNOMED: 59124241] Diagnosis: MILD COGNITIVE IMPAIREMT[ICD9: 331.83] [facility] CPT-4: 40644 08/03/2011 ([id number]) OFFICE/OUTPATIENT VISIT NEW Diagnosis: ESSENTIAL HYPERTENSION[SNOMED: 44653945] Diagnosis: HYPERLIPIDEMIA[ICD9: 272.4] Diagnosis: Mild cognitive impairment with memory loss[ICD9: 331.83] [facility] CPT-4: 93303 07/07/2011 Plan of Care Planned Activity Notes Codes Status Date Visit Plan: Dried fissure/cut to finger - The patient was instructed in appropriate wound care. The patient was instructed to use the antibiotic ointment as per RX. The patient is to call for any change in symptoms , increase in size of the lesion, increase in pain, worsening redness, warmth, discharge. 06/14/2017 Appointment: Jan[facility] [phone] [id number] ([facility] min) Complex 06/14/2017 Patient Education: Patient Medication Summary Completed 06/14/2017 Appointment: Injection 03/15/2017 Patient Education: Patient Medication Summary Completed 03/15/2017 Visit Plan: Hypertension - well controlled - continue with current medications, continue with no added salt diet. Pt has been encouraged to exercise daily. The pt has been advised to call the office if there are any acute concerns about change in blood pressure readings at home. Atrial Fibrillation - pt on chronic anticoagulation and is currently rate controlled. The pt is to have labs done as appropriate to monitor medication levels and is to report if they start to feel as if their heart rate is becoming uncontrolled. Alzheimer's Dementia - Pt with slowly progressive pattern. I have discussed with pt and family the prognosis of this disease state and the need for the family to anticipate further decline with behavior changes. Continue with current plan of treatment. 04/06/2016 Appointment: [phone] [id number] ([facility] 04/06/2016 Patient Education: Patient Medication Summary Completed 04/06/2016 Patient Education: Hypertension Completed 04/06/2016 Referral: Saira Henry Referral Initiated 09/10/2015 Visit Plan: Ingrown toenail - infected, will have pt start on abx and refer to Dr. Henry. Pt is to notify clinic if symptoms do not improve , or worsen. Hypertension - well controlled - continue with current medications , continue with no added salt diet. Pt has been encouraged to exercise daily. The pt has been advised to call the office if there are any acute concerns about change in blood pressure readings at home. Alzheimer's Dementia - Pt with progressive pattern. I have discussed with pt and the prognosis of this disease state and the need for the family to anticipate further decline with behavior changes. Continue with current plan of treatment. 09/02/2015 Patient Education: Patient Medication Summary Completed 09/02/2015 Patient Education: Hypertension Completed 09/02/2015 Care Plan: Referral Order SNOMED-CT : [id number] Ordered 09/02/2015 Visit Plan: Hypertension - well controlled - continue with current medications, continue with no added salt diet. Pt has been encouraged to exercise daily. The pt has been advised to call the office if there are any acute concerns about change in blood pressure readings at home. Gout Attack - pt given RX for uric Acid Level, and rx for medication for treatment of symptoms. Pt to call if symptoms do not improve, and pt to be given results of labs when available. 07/23/2015 Appointment: (15 min) Moderate 07/23/2015 Patient Education: Patient Medication Summary Completed 07/23/2015 Patient Education: Hypertension Completed 07/23/2015 Visit Plan: Hypertension - well controlled - continue with current medications, continue with no added salt diet. Pt has been encouraged to exercise daily. The pt has been advised to call the office if there are any acute concerns about change in blood pressure readings at home. Atrial Fibrillation - pt on chronic anticoagulation and is currently rate controlled. The pt is to have labs done as appropriate to monitor medication levels and is to report if they start to feel as if their heart rate is becoming uncontrolled. Alzheimer's Dementia - Pt with progressive pattern. I have discussed with pt and family the prognosis of this disease state and the need for the family to anticipate further decline with behavior changes. Continue with current plan of treatment. 06/05/2015 Appointment: (15 min) Moderate 06/05/2015 Patient Education: Patient Medication Summary Completed 06/05/2015 Patient Education: Hypertension Completed 06/05/2015 Appointment: Nurse Visit 10/26/2014 Patient Education: Patient Medication Summary Completed 10/26/2014 Appointment: Doris Can [facility]Ptel: [phone] [id number] [facility] follow up 06/19/2014 Visit Plan: Hypertension - well controlled - continue with current medications, continue with no added salt diet. Pt has been encouraged to exercise daily. The pt has been advised to call the office if there are any acute concerns about change in blood pressure readings at home. Atrial Fibrillation - pt on chronic anticoagulation and is currently rate controlled. The pt is to have labs done as appropriate to monitor medication levels and is to report if they start to feel as if their heart rate is becoming uncontrolled. Alzheimer's Dementia - Pt with progressive pattern. I have discussed with pt and the prognosis of this disease state and the need for the family to anticipate further decline with behavior changes. Continue with current plan of treatment. 06/18/2014 Appointment: Doris Can WPtel: [id number] Follow up 06/18/2014 Patient Education: Patient Medication Summary Completed 06/18/2014 Patient Education: Hypertension Completed 06/18/2014 Visit Plan: Hypertension - well controlled - continue with current medications, continue with no added salt diet. Pt has been encouraged to exercise daily. The pt has been advised to call the office if there are any acute concerns about change in blood pressure readings at home. Atrial Fibrillation - pt on chronic anticoagulation and is currently rate controlled. The pt is to have labs done as appropriate to monitor medication levels and is to report if they start to feel as if their heart rate is becoming uncontrolled. Alzheimer's Dementia - Pt with slowly progressive pattern. I have discussed with pt and family the prognosis of this disease state and the need for the family to anticipate further decline with behavior changes. Continue with current plan of treatment. 04/04/2014 Appointment: Doris Can WPtel: [id number] Follow up 04/04/2014 Patient Education: Patient Medication Summary Completed 04/04/2014 Patient Education: Hypertension Completed 04/04/2014 Care Plan: Referral Order SNOMED-CT : [id number] Ordered 04/04/2014 Appointment: Doris Can WPtel: [address] [place], [place] [id number] [place] Follow up 04/02/2014 Visit Plan: Alzheimer's Dementia - Pt with slowly progressive pattern. I have discussed with pt and family the prognosis of this disease state and the need for the family to anticipate further decline with behavior changes. Continue with current plan of treatment. Change from namenda to namenda xr. Hypertension - well controlled - continue with current medications, continue with no added salt diet. Pt has been encouraged to exercise daily. The pt has been advised to call the office if there are any acute concerns about change in blood pressure readings at home. 08/09/2013 Appointment: Doris Can WPtel: [phone] [id number] [facility] follow up 08/09/2013 Patient Education: Patient Medication Summary Completed 08/09/2013 Patient Education: Hypertension Completed 08/09/2013 Visit Plan: Hypertension - well controlled - continue with current medications, continue with no added salt diet. Pt has been encouraged to exercise daily. The pt has been advised to call the office if there are any acute concerns about change in blood pressure readings at home. Hyperlipidemia - pt has been counseled about appropriate diet, exercise, and need for low fat food choices. I have discussed the need for the patient to take medications as prescribed. If the patient has negative side effects from the medication, they are to CALL the office and not abruptly discontinue the medication without discussion with a practicioner in the office. We will check labs in 3-6 months for follow up on the patient's chronic medical problem and to assure normal liver response to medications. 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 Treatment modalities have been discussed and pt is considering different treatment options. We will follow up with treatment at next office visit after review of testing. Cerumen Impaction - The impacted cerumen was removed with the use of the ear currette. The patient tolerated the procedure without incident and had improvement in hearing. The wax was removed by the practicioner due to the wax being more complicated to remove, and staff was needed to assit the removal of the wax by holding the ear, and keepig patient stabilized during the removal process. 08/08/2012 Appointment: Doris Can WPtel: [phone] [id number] Follow up 08/08/2012 Patient Education: Patient Medication Summary Completed 08/08/2012 Patient Education: Hypertension Completed 08/08/2012 Visit Plan: Low back pain- the patient was instructed in appropriate posture, need for weight loss to alleviate abdominal obesity that is worsening the patient's back pain.. The pt is to use prn antiinflammatories to manage acute pain. The patient is to call the office if the pain is worsening or does not improve. Plan to xray low back-toradol injection today in the office 01/26/2012 Appointment: Angeles Pedraza WPtel: [phone] [phone] Other 01/26/2012 Patient Education: Patient Medication Summary Completed 01/26/2012 Patient Education: .Amazing charts- low back pain Completed 01/26/2012 Patient Education: .Amazing charts Exercise for Sciatica Completed 01/26/2012 Visit Plan: Mild cognitive Impairment - Pt with slowly progressive pattern. I have discussed with pt and family the prognosis of this disease state and the need for the family to anticipate further decline with behavior changes. Continue with current plan of treatment. Dry skin on the palm of right hand- recommended for the parent to use olive oil on the hand, brush it in with a soft baby hair brush. Hypertension - well controlled - continue with current medications, continue with no added salt diet. Pt has been encouraged to exercise daily. The pt has been advised to call the office if there are any acute concerns about change in blood pressure readings at home. 11/09/2011 Appointment: Doris Can WPtel: [phone] [id number] [place] Other 11/09/2011 Patient Education: Patient Medication Summary Completed 11/09/2011 Patient Education: High Blood Pressure: Essential Hypertension Completed 2011 Visit Plan: Sinusitis - Pt has acute infection - pain in face, maxillary region, Pt informed to use decongestant, RX given to patient, sinus rinses also recommended. Call if symptoms do not show improvement. URI - Pt advised to increase fluids, vitamin C. Discussed natural and expected course of this diagnosis and need to alert me if symtpoms do not follow expected course , or if any worse. RX sent to patient's pharmacy. 09/09/2011 Appointment: Dor[facility] Can [facility]el: [id number] Other 09/09/2011 Patient Education: Patient Medication Summary Completed 09/09/2011 Visit Plan: Hypertension - well controlled - continue with current medications, continue with no added salt diet. Pt has been encouraged to exercise daily. The pt has been advised to call the office if there are any acute concerns about change in blood pressure readings at home. Memory loss - Pt with slowly progressive pattern. I have discussed with pt and family the prognosis of this disease state and the need for the family to anticipate further decline with behavior changes. Continue with current plan of treatment. Pt started on Namenda starter pack and is to be seen in 2 months for repeat eval - if the namenda is tolerable without nightmares, they are to call and I will call out a script for him for 10mg bid. 08/03/2011 Appointment: Doris Can WPtel: [id number] Follow up 08/03/2011 Patient Education: Patient Medication Summary Completed 08/03/2011 Patient Education: High Blood Pressure: Essential Hypertension Completed 2011 Visit Plan: Hypertension - well controlled - continue with current medications, continue with no added salt diet. Pt has been encouraged to exercise daily. The pt has been advised to call the office if there are any acute concerns about change in blood pressure readings at home. Hyperlipidemia - pt has been counseled about appropriate diet, exercise, and need for low fat food choices. I have discussed the need for the patient to take medications as prescribed. If the patient has negative side effects from the medication, they are to CALL the office and not abruptly discontinue the medication without discussion with a practicioner in the office. We will check labs in 3-6 months for follow up on the patient's chronic medical problem and to assure normal liver response to medications. Mild cognitive Impairment - I reviewed his MRI of the head/brain from 2010 - it was negative for white matter disease, was negative for ventricular enlargment. I have asked for copies of his most recent labs - he states that he had labs 2 months ago and has also had some vitamin testing. I suspect that he has some age and disease associated memory loss that has been augmented by his heart surgery and repeat surgery just 3 days later - in 1999 - this damage on top of his disease process has likely lead to memory loss that is noticible in this highly educated and intelligent individual. I will probably start him on Namenda and then aricept in a few weeks. Hopefully we can preserve as much brain function as possible. 07/07/2011 Appointment: Angeles Pedraza [facility]Ptel: [phone] New Patient 07/07/2011 Patient Education: Patient Medication Summary Completed 07/07/2011 Patient Education: High Blood Pressure: Essential Hypertension Completed 2011 Referral: Saira Henry Referral Initiated Referral: [facility] [employer] WPtel: Referral Initiated Instructions Comment . Hypertension - well controlled - continue with current medications, continue with no added salt diet. Pt has been encouraged to exercise daily. The pt has been advised to call the office if there are any acute concerns about change in blood pressure readings at home. Atrial Fibrillation - pt on chronic anticoagulation and is currently rate controlled. The pt is to have labs done as appropriate to monitor medication levels and is to report if they start to feel as if their heart rate is becoming uncontrolled. Alzheimer's Dementia - Pt with progressive pattern. I have discussed with pt and the prognosis of this disease state and the need for the family to anticipate further decline with behavior changes. Continue with current plan of treatment. referral to via [email or web address] - re counseling for behavior modification. . Hypertension - well controlled - continue with current medications, continue with no added salt diet. Pt has been encouraged to exercise daily. The pt has been advised to call the office if there are any acute concerns about change in blood pressure readings at home. Atrial Fibrillation - pt on chronic anticoagulation and is currently rate controlled. The pt is to have labs done as appropriate to monitor medication levels and is to report if they start to feel as if their heart rate is becoming uncontrolled. Alzheimer's Dementia - Pt with slowly progressive pattern. I have discussed with pt and family the prognosis of this disease state and the need for the family to anticipate further decline with behavior changes. Continue with current plan of treatment. . Hypertension - well controlled - continue with current medications, continue with no added salt diet. Pt has been encouraged to exercise daily. The pt has been advised to call the office if there are any acute concerns about change in blood pressure readings at home. Hyperlipidemia - pt has been counseled about appropriate diet, exercise, and need for low fat food choices. I have discussed the need for the patient to take medications as prescribed. If the patient has negative side effects from the medication, they are to CALL the office and not abruptly discontinue the medication without discussion with a practicioner in the office. We will check labs in 3-6 months for follow up on the patient's chronic medical problem and to assure normal liver response to medications. 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 Treatment modalities have been discussed and pt is considering different treatment options. We will follow up with treatment at next office visit after review of testing. Cerumen Impaction - The impacted cerumen was removed with the use of the ear currette. The patient tolerated the procedure without incident and had improvement in hearing. The wax was removed by the practicioner due to the wax being more complicated to remove, and staff was needed to assit the removal of the wax by holding the ear, and keepig patient stabilized during the removal process. . Hypertension - well controlled - continue with current medications, continue with no added salt diet. Pt has been encouraged to exercise daily. The pt has been advised to call the office if there are any acute concerns about change in blood pressure readings at home. Atrial Fibrillation - pt on chronic anticoagulation and is currently rate controlled. The pt is to have labs done as appropriate to monitor medication levels and is to report if they start to feel as if their heart rate is becoming uncontrolled. Alzheimer's Dementia - Pt with slowly progressive pattern. I have discussed with pt and family the prognosis of this disease state and the need for the family to anticipate further decline with behavior changes. Continue with current plan of treatment. . Hypertension - well controlled - continue with current medications, continue with no added salt diet. Pt has been encouraged to exercise daily. The pt has been advised to call the office if there are any acute concerns about change in blood pressure readings at home. Hyperlipidemia - pt has been counseled about appropriate diet, exercise, and need for low fat food choices. I have discussed the need for the patient to take medications as prescribed. If the patient has negative side effects from the medication, they are to CALL the office and not abruptly discontinue the medication without discussion with a practicioner in the office. We will check labs in 3-6 months for follow up on the patient's chronic medical problem and to assure normal liver response to medications. Mild cognitive Impairment - I reviewed his MRI of the head/brain from 2010 - it was negative for white matter disease, was negative for ventricular enlargment. I have asked for copies of his most recent labs - he states that he had labs 2 months ago and has also had some vitamin testing. I suspect that he has some age and disease associated memory loss that has been augmented by his heart surgery and repeat surgery just 3 days later - in 1999 - this damage on top of his disease process has likely lead to memory loss that is noticible in this highly educated and intelligent individual. I will probably start him on Namenda and then aricept in a few weeks. Hopefully we can preserve as much brain function as possible. Xray lumbar spine . Low back pain- the patient was instructed in appropriate posture, need for weight loss to alleviate abdominal obesity that is worsening the patient's back pain.. The pt is to use prn antiinflammatories to manage acute pain. The patient is to call the office if the pain is worsening or does not improve. Plan to xray low back-toradol injection today in the office . Dried fissure/cut to finger - The patient was instructed in appropriate wound care. The patient was instructed to use the antibiotic ointment as per RX. The patient is to call for any change in symptoms, increase in size of the lesion, increase in pain, worsening redness, warmth, discharge. . Alzheimer's Dementia - Pt with slowly progressive pattern. I have discussed with pt and family the prognosis of this disease state and the need for the family to anticipate further decline with behavior changes. Continue with current plan of treatment. Change from namenda to namenda xr. Hypertension - well controlled - continue with current medications, continue with no added salt diet. Pt has been encouraged to exercise daily. The pt has been advised to call the office if there are any acute concerns about change in blood pressure readings at home. . Sinusitis - Pt has acute infection - pain in face, maxillary region, Pt informed to use decongestant, RX given to patient, sinus rinses also recommended. Call if symptoms do not show improvement. URI - Pt advised to increase fluids, vitamin C. Discussed natural and expected course of this diagnosis and need to alert me if symtpoms do not follow expected course, or if any worse. RX sent to patient's pharmacy. Ingrown toenail - infected - will have patient start on bacrtim antibiotic - and we will get an appointment Dr. Henry for his toes - will send a refill of gout medication if needed, but start on the antibiotic today. . Ingrown toenail - infected, will have pt start on abx and refer to Dr. Henry. Pt is to notify clinic if symptoms do not improve, or worsen. Hypertension - well controlled - continue with current medications, continue with no added salt diet. Pt has been encouraged to exercise daily. The pt has been advised to call the office if there are any acute concerns about change in blood pressure readings at home. Alzheimer's Dementia - Pt with progressive pattern. I have discussed with pt and the prognosis of this disease state and the need for the family to anticipate further decline with behavior changes. Continue with current plan of treatment. . Hypertension - well controlled - continue with current medications, continue with no added salt diet. Pt has been encouraged to exercise daily. The pt has been advised to call the office if there are any acute concerns about change in blood pressure readings at home. Atrial Fibrillation - pt on chronic anticoagulation and is currently rate controlled. The pt is to have labs done as appropriate to monitor medication levels and is to report if they start to feel as if their heart rate is becoming uncontrolled. Alzheimer's Dementia - Pt with progressive pattern. I have discussed with pt and family the prognosis of this disease state and the need for the family to anticipate further decline with behavior changes. Continue with current plan of treatment. Take 2 pills to equal 1.2 mg then take 1 pill (0.6 mg) one hour after. Increase your fluid intake, try to drink 8 8 oz glasses of water a day. You should cut down on: ?Red meat and seafood ?Alcohol, such as beer, wine, and hard alcohol ?Foods and drinks that have high-fructose corn syrup (that includes most sodas and store-bought cakes and cookies). Hypertension - well controlled - continue with current medications, continue with no added salt diet. Pt has been encouraged to exercise daily. The pt has been advised to call the office if there are any acute concerns about change in blood pressure readings at home. Gout Attack - pt given RX for uric Acid Level, and rx for medication for treatment of symptoms. Pt to call if symptoms do not improve, and pt to be given results of labs when available. . Hypertension - well controlled - continue with current medications, continue with no added salt diet. Pt has been encouraged to exercise daily. The pt has been advised to call the office if there are any acute concerns about change in blood pressure readings at home. Memory loss - Pt with slowly progressive pattern. I have discussed with pt and family the prognosis of this disease state and the need for the family to anticipate further decline with behavior changes. Continue with current plan of treatment. Pt started on Namenda starter pack and is to be seen in 2 months for repeat eval - if the namenda is tolerable without nightmares, they are to call and I will call out a script for him for 10mg bid. . Mild cognitive Impairment - Pt with slowly progressive pattern. I have discussed with pt and family the prognosis of this disease state and the need for the family to anticipate further decline with behavior changes. Continue with current plan of treatment. Dry skin on the palm of right hand- recommended for the parent to use olive oil on the hand, brush it in with a soft baby hair brush. Hypertension - well controlled - continue with current medications, continue with no added salt diet. Pt has been encouraged to exercise daily. The pt has been advised to call the office if there are any acute concerns about change in blood pressure readings at home.
--- OUTSIDE RECORDS SUMMARY | 2017-11-03 07:01 | XMS REPORT | Continuity of Care Document ---
Author Author [facility] Organization [facility] Address Unknown Phone Unavailable Allergies Active Description Code Type Severity Reaction Onset Reported/Identified Relationship to Patient Clinical Status Yes No Known Drug Allergies [id number] Drug Allergy Unknown N/A 05/20/2009 Medications There is no data. Problems Date Dx Coded Attending Type Code Diagnosis Diagnosed By 07/28/2013 RAVEN FALL MD Ot 272.0 PURE HYPERCHOLESTEROLEM 07/28/2013 RAVEN FALL MD Ot 272.4 HYPERLIPIDEMIA NEC/NOS 07/28/2013 RAVEN FALL MD Ot 294.20 DEMENTIA, UNSPECIFIED, WITHOUT BEHAVIORA 07/28/2013 RAVEN FALL MD Ot 401.9 HYPERTENSION NOS 07/28/2013 RAVEN FALL MD Ot 410.91 ACUTE MYOCARD INFARCT,UNSPEC SITE,INITIA 07/28/2013 RAVEN FALL MD Ot 414.01 CORONARY ATHEROSCLEROSIS OF [place] CORON 07/28/2013 RAVEN FALL MD Ot 414.02 CORON ATHEROSCLEROSIS AUTOLOG VEIN BYPAS 07/28/2013 RAVEN FALL MD Ot 427.31 ATRIAL FIBRILLATION 07/28/2013 RAVEN FALL MD Ot 427.81 SINOATRIAL NODE DYSFUNCT 07/28/2013 RAVEN FALL MD Ot 434.91 CEREBRAL ART OCCLUSION NOS W CEREBRAL IN 07/28/2013 RAVEN FALL MD Ot 729.89 MUSCSKEL SYMPT LIMB NEC 07/28/2013 RAVEN FALL MD Ot V15.82 HISTORY OF TOBACCO USE 07/28/2013 RAVEN FALL MD Ot 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 07/28/2013 RAVEN FALL MD, Ot V45.82 PERCUTANEOUS TRANSLUM CORON ANGIOPLASTY 12/15/2013 JAZ NERI MD Ot 401.9 HYPERTENSION NOS 12/15/2013 JAZ NERI MD Ot 414.01 CORONARY ATHEROSCLEROSIS OF [place] CORON 12/15/2013 JAZ NERI MD Ot 427.81 SINOATRIAL NODE DYSFUNCT 12/15/2013 JAZ NERI MD Ot 434.91 CEREBRAL ART OCCLUSION NOS W CEREBRAL IN 12/15/2013 JAZ NERI MD Ot 785.0 TACHYCARDIA NOS 12/15/2013 JAZ NERI MD Ot 785.1 PALPITATIONS 12/15/2013 JAZ NERI MD Ot V15.82 HISTORY OF TOBACCO USE 12/15/2013 JAZ NERI MD Ot 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 12/15/2013 JAZ NERI MD Ot V58.61 ANTICOAGULANTS,LT,CURRENT USE 12/15/2013 JAZ NERI MD Ot V58.69 OTH MED,LT,CURRENT USE 05/31/2014 RAVEN FALL MD Ot 780.93 MEMORY LOSS 05/31/2014 RAVEN FALL MD Ot 972.0 POIS-CARD RHYTHM REGULAT 05/31/2014 RAVEN FALL MD Ot E849.0 ACCIDENT IN HOME 05/31/2014 RAVEN FALL MD Ot 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 05/31/2014 RAVEN FALL MD Ot 780.93 05/31/2014 RAVEN FALL MD Ot 972.0 05/31/2014 RAVEN FALL MD Ot E849.0 05/31/2014 RAVEN FALL MD Ot E858.3 08/15/2015 Ot 397.0 08/15/2015 Ot 414.00 08/15/2015 Ot 424.0 08/15/2015 Ot 427.31 08/15/2015 Ot 290.40 08/15/2015 Ot 434.91 08/15/2015 Ot 780.93 08/15/2015 Ot 721.3 08/19/2015 JAZ NERI MD Ot E78.2 08/19/2015 JAZ NERI MD Ot I10 08/19/2015 JAZ NERI MD Ot I25.10 08/19/2015 JAZ NERI MD Ot I48.1 09/10/2015 JAZ NERI MD Ot E78.2 09/10/2015 JAZ NERI MD Ot I10 09/10/2015 JAZ NERI MD Ot I25.10 09/10/2015 JAZ NERI MD Ot I48.1 09/11/2015 JAZ NERI MD Ot E78.2 09/11/2015 JAZ NERI MD Ot I10 09/11/2015 JAZ NERI MD Ot I25.10 09/11/2015 JAZ NERI MD Ot I48.1 09/19/2015 JAZ NERI MD Ot E78.2 09/19/2015 JAZ NERI MD Ot I10 09/19/2015 JAZ NERI MD Ot I25.10 09/19/2015 JAZ NERI MD Ot I48.1 09/20/2015 JAZ NERI MD Ot E78.2 MIXED HYPERLIPIDEMIA 09/20/2015 JAZ NERI MD J Ot I10 ESSENTIAL (PRIMARY) HYPERTENSION 09/20/2015 JAZ NERI MD Ot I25.10 ATHSCL HEART DISEASE OF [place] CORONARY 09/20/2015 JAZ NERI MD Ot I48.1 PERSISTENT ATRIAL FIBRILLATION 10/09/2015 JAZ NERI MD Ot E78.2 MIXED HYPERLIPIDEMIA 10/09/2015 JAZ NERI MD Ot I10 ESSENTIAL (PRIMARY) HYPERTENSION 10/09/2015 JAZ NERI MD Ot I25.10 ATHSCL HEART DISEASE OF [place] CORONARY 10/09/2015 JAZ NERI MD Ot I48.1 PERSISTENT ATRIAL FIBRILLATION 10/16/2015 JAZ NERI MD Ot E78.2 MIXED HYPERLIPIDEMIA 10/16/2015 JAZ NERI MD Ot I10 ESSENTIAL (PRIMARY) HYPERTENSION 10/16/2015 JAZ NERI MD Ot I25.10 ATHSCL HEART DISEASE OF [place] CORONARY 10/16/2015 JAZ NERI MD Ot I48.1 PERSISTENT ATRIAL FIBRILLATION 10/22/2017 JAZ NERI MD Ot E78.2 MIXED HYPERLIPIDEMIA 10/22/2017 JAZ NERI MD J Ot I10 ESSENTIAL (PRIMARY) HYPERTENSION 10/22/2017 JAZ NERI MD Ot I25.10 ATHSCL HEART DISEASE OF [place] CORONARY 10/22/2017 JAZ NERI MD Ot I48.1 PERSISTENT ATRIAL FIBRILLATION 10/22/2017 JAZ NERI MD Ot E78.2 MIXED HYPERLIPIDEMIA 10/22/2017 JAZ NERI MD J Ot I10 ESSENTIAL (PRIMARY) HYPERTENSION 10/22/2017 JAZ NERI MD Ot I25.10 ATHSCL HEART DISEASE OF [place] CORONARY 10/22/2017 JAZ NERI MD J Ot I48.1 PERSISTENT ATRIAL FIBRILLATION 10/22/2017 JAZ NERI MD J Ot I25.10 ATHSCL HEART DISEASE OF [place] CORONARY 10/22/2017 JAZ NERI MD J Ot I48.0 PAROXYSMAL ATRIAL FIBRILLATION 10/22/2017 JAZ NERI MD Ot I49.5 SICK SINUS SYNDROME 10/22/2017 JAZ NERI MD J Ot R00.2 PALPITATIONS 10/22/2017 JAZ NERI MD Ot R07.9 CHEST PAIN, UNSPECIFIED 10/22/2017 JAZ NERI MD J Ot I25.10 ATHSCL HEART DISEASE OF [place] CORONARY 10/22/2017 JAZ ENRI MD Ot I48.0 PAROXYSMAL ATRIAL FIBRILLATION 10/22/2017 JAZ NERI MD Ot I49.5 SICK SINUS SYNDROME 10/22/2017 JAZ NERI MD Ot R00.2 PALPITATIONS 10/22/2017 JAZ NERI MD Ot R07.9 CHEST PAIN, UNSPECIFIED 10/25/2017 JAZ NERI MD Ot E78.2 MIXED HYPERLIPIDEMIA 10/25/2017 JAZ NERI MD Ot I10 ESSENTIAL (PRIMARY) HYPERTENSION 10/25/2017 JAZ NERI MD Ot I25.10 ATHSCL HEART DISEASE OF [place] CORONARY 10/25/2017 JAZ NERI MD Ot I48.1 PERSISTENT ATRIAL FIBRILLATION 10/25/2017 JAZ NERI MD Ot E78.2 MIXED HYPERLIPIDEMIA 10/25/2017 JAZ NERI MD J Ot I10 ESSENTIAL (PRIMARY) HYPERTENSION 10/25/2017 JAZ NERI MD Ot I25.10 ATHSCL HEART DISEASE OF [place] CORONARY 10/25/2017 JAZ NERI MD Ot I48.1 PERSISTENT ATRIAL FIBRILLATION 10/25/2017 JAZ NERI MD Ot I25.10 ATHSCL HEART DISEASE OF [place] CORONARY 10/25/2017 JAZ NERI MD Ot I48.0 PAROXYSMAL ATRIAL FIBRILLATION 10/25/2017 JAZ NERI MD Ot I49.5 SICK SINUS SYNDROME 10/25/2017 JAZ NERI MD Ot R00.2 PALPITATIONS 10/25/2017 JAZ NERI MD Ot R07.9 CHEST PAIN, UNSPECIFIED 10/26/2017 JAZ NERI MD Ot I25.10 ATHSCL HEART DISEASE OF [place] CORONARY 10/26/2017 JAZ NERI MD Ot I48.0 PAROXYSMAL ATRIAL FIBRILLATION 10/26/2017 JAZ NERI MD Ot I49.5 SICK SINUS SYNDROME 10/26/2017 JAZ NERI MD Ot R00.2 PALPITATIONS 10/26/2017 JAZ NERI MD Ot R07.9 CHEST PAIN, UNSPECIFIED Procedures Code Description Performed By Performed On 37.22 LEFT HEART CARDIAC CATH 07/26/2013 88.49 CONTRAST ARTERIOGRAM NEC 07/26/2013 88.53 LT HEART ANGIOCARDIOGRAM 07/26/2013 88.56 CORONAR ARTERIOGR-2 CATH 07/26/2013 Results There is no data. Encounters ACCT No. Visit Date/Time Discharge Status Pt. Type Provider Facility Loc./Unit Complaint [id number] 10/25/2017 11:24:00 10/25/2017 23:59:59 CLS Outpatient JAZ NERI MD [facility] CARD CAD,CHEST PAIN, PALPITATIONS [id number] 10/20/2017 08:12:00 10/20/2017 23:59:59 CLS Outpatient JAZ NERI MD [facility] CARD CAD,CHEST PAIN, PALPITATIONS [id number] 12/26/2015 11:58:00 12/26/2015 23:59:59 CLS Outpatient DAVINA COLON APRN [facility] QUICK [id number] 09/18/2015 08:19:00 09/18/2015 23:59:59 CLS Outpatient JAZ NERI MD [facility] CARD AFIB, WITH RVR, CAD, HTN ,HLP [id number] 08/15/2015 09:10:00 08/15/2015 23:59:59 CLS Outpatient JAZ NERI MD [facility] CARD AFIB, WITH RVR, CAD, HTN ,HLP [id number] 05/31/2014 01:45:00 05/31/2014 14:00:00 DIS Inpatient RAVEN FALL MD [facility] ICU ACCIDENTAL OVERDOSE [id number] 12/15/2013 11:44:00 12/15/2013 12:46:00 DIS Outpatient JAZ NERI MD [facility] CATH PAF,CVA,PAT,CAD, RECURRENT PALPITATIONS [id number] 07/25/2013 13:59:00 07/28/2013 10:55:00 DIS Inpatient RAVEN FALL MD [facility] CSD CVA ELEVATED TROPONIN [id number] 11/03/2017 09:00:00 PEN Preadmit JAZ NERI MD [facility] CATH ABN STRESS,CAD,PAF,HTN [id number] 01/26/2012 10:13:00 Document Registration [id number] 03/17/2011 13:30:00 Document Registration [id number] 03/03/2011 09:45:00 Document Registration 0000 04/18/2017 03:34:34 04/18/2017 23:59:59 CLS Outpatient [id number] 05/31/2014 01:05:06 ACT Document Registration
[2017-11-03] MEDS ORDERED: LIDOCAINE 1% INJ 20 ML 20 ML VIAL ONE (07:09)
[2017-11-03] MEDS ORDERED: HEParin (CATH LAB) 2,000 ML IV ONE (07:09)
[2017-11-03] MEDS ORDERED: NS IV 1000 ML 1,000 ML ONE (07:09)
[2017-11-03] MEDS ORDERED: NS IV 1000 ML 1,000 ML IV SCH (07:18)
--- NOTE | 2017-11-03 07:52 | Diagnostic Imaging Report ---
EXAMINATION: Chest radiograph, portable AP view. DATE: November 03, 2017 at 0741 hours. INDICATION: 82-year-old male, history of chest pain. COMPARISON: 12/26/2015. 07/25/2013. FINDINGS: There are median sternotomy wires. The aorta is unfolded. The heart is not enlarged. There is no identified pneumothorax. There is no large pleural effusion. There is minimal subsegmental atelectasis in the left midlung. There is no additional identified focal airspace consolidation. IMPRESSION: 1. No identified acute cardiopulmonary abnormality. Dictated by: Dictated on workstation # [id number]
[2017-11-03 07:59] LABS: HEMOGLOBIN 14.4 G/DL (13.3-17.7); MEAN PLATELET VOLUME 10.7 FL (7.4-10.4); RED BLOOD COUNT 4.61 10^6/uL (4.35-5.85); WHITE BLOOD COUNT 7.3 10^3/uL (4.3-11.0)
[2017-11-03 08:14] LABS: INR 1.1 (0.8-1.4); PROTHROMBIN TIME PATIENT 13.9 SEC (12.2-14.7)
[2017-11-03 08:27] LABS: ALANINE AMINOTRANSFERASE 17 U/L (0-55); ALBUMIN 4.2 GM/DL (3.2-4.5); ALKALINE PHOSPHATASE 45 U/L (40-136); BILIRUBIN,TOTAL 0.7 MG/DL (0.1-1.0); BUN/CREATININE RATIO 19; CALCIUM 9.3 MG/DL (8.5-10.1); CARBON DIOXIDE 25 MMOL/L (21-32); CHLORIDE 108 MMOL/L (98-107); CHOLESTEROL 150 MG/DL (< 200); CREATININE SERUM 0.96 MG/DL (0.60-1.30); GFR ESTIMATED > 60; GLUCOSE 103 MG/DL (70-105); HDL CHOLESTEROL 44 MG/DL (40-60); POTASSIUM 3.9 MMOL/L (3.6-5.0); SODIUM 142 MMOL/L (135-145); TOTAL PROTEIN 6.8 GM/DL (6.4-8.2); TRIGLYCERIDES 68 MG/DL (<150); VLDL CHOLESTEROL 14 MG/DL (5-40)
[2017-11-03] MEDS ORDERED: FISH1CAP15 PO (08:42)
[2017-11-03] MEDS ORDERED: TURM500C4 PO (08:43)
[2017-11-03] MEDS ORDERED: CHOL200012 PO (08:43)
[2017-11-03] MEDS ORDERED: MULT-974 PO (08:43)
[2017-11-03] MEDS ORDERED: RIVA1PAT12 TD (08:44)
[2017-11-03] MEDS ORDERED: RAMI5CAP PO (08:45)
[2017-11-03] MEDS ORDERED: PRAV20TA3 PO (08:45)
[2017-11-03] MEDS ORDERED: DOFE500C4 PO (08:45)
[2017-11-03] MEDS ORDERED: MEMA28CA5 PO (08:46)
[2017-11-03] MEDS ORDERED: APIX5TAB PO (08:46)
[2017-11-03] MEDS ORDERED: fentaNYL INJECTION 100 MCG/2 ML AMP ONE (08:57)
[2017-11-03] MEDS ORDERED: MIDAZOLAM 5 MG/5 ML (VERSED) VIAL ONE (08:57)
[2017-11-03] MEDS ORDERED: HEParin 1000 UNIT/ML (10ML VIAL) FOR BOLUS ONE (09:28)
[2017-11-03] MEDS ORDERED: NITRO DRIP 25000 MCG/D5W 250 ML IV ONE (09:28)
[2017-11-03] MEDS ORDERED: EPTIFIBATIDE BOLUS 10 ML IV ONE (09:35)
[2017-11-03] MEDS ORDERED: ASPIRIN 325 MG (5 GR) TABLET ONE (09:58)
[2017-11-03] MEDS ORDERED: TICAGRELOR 90 MG TABLET (BRILINTA) PO ONE (09:58)
[2017-11-03] MEDS ORDERED: PATIENT MAY USE OWN MEDS, ALL PO SCH (10:00)
--- NOTE | 2017-11-03 10:00 | Cardiac Procedure Note-CS/ASA ---
Pre-Procedure Note Pre-Op Procedure Note H&P Reviewed The H&P was reviewed, patient examined and no changes noted. Date H&P Reviewed: November 03, 2017 Time H&P Reviewed: 09:00 Conscious Sedation Pre-Proced Time Reviewed: 09:00 ASA Class: 3 Airway Mallampati Classification: ([place] appropriate class) I. II. III, IV Lungs Heart ASA score ASA 1: a normal healthy patient ASA 2: a patient with a mild systemic disease (mid diabetes, controlled hypertension, obesity x ASA 3: a patient with a severe systemic disease that limits activity (angina , COPD, prior Myocardial infarction) ASA 4: a patient with an incapacitating disease that is a constant threat to life (CHF, renal failure) ASA 5: a moribund patient not expected to survive 24 hrs. (ruptured aneurysm) ASA 6: a declared brain patient whose organs are being harvested. For emergent operations, add the letter E after the classification Grade 3 Sedation Plan: Analgesia, Amnesia, Plan communicated to team members, Discussed options with patient/fam, Discussed risks with patient/fam Note The patient is an appropriate candidate to undergo the planned procedure, sedation, and anesthesia. The patient immediately re-assessed prior to indication. JAZ NERI MD November 03, 2017 10:00
--- NOTE | 2017-11-03 10:10 | Cardiac Cath Report ---
Cardiac Cath Report Physician (s)/Silk Spooler (s) Physician JAZ NERI MD Pre-Procedure Diagnosis Pre-Procedure Diagnosis: coronary artery disease Post-Procedure Note Procedure Start Date: November 03, 2017 Name of Procedure: left heart catheterization, vein graft angiogram Stent to the vein graft Findings/Procedure Note PROCEDURE NOTE: After explaining the procedure to the patient, all pros and cons were explained , all questions were answered. The patient signed the consent and then he was placed on the cardiac catheterization laboratory. Groin was prepped SL fashion local anesthesia was used. Sheath placed in the right femoral artery. [place] right and left catheter were used to access the coronary system.Vein Graft evaluated. MELTON evaluated. Pigtail was used to access the left ventricular cavity. Left ventriculogram was not done Patient has severe stenosis at the ostium of the vein graft to the LAD and obtuse marginal branch, pertains intervention was done, patient was given 8000 units of heparin and single bolus of Integrilin, FR guide with sidehole was used , BMW wire was advanced and parked distally, predilatation with 3.5 balloon then I proceeded with placement of Alpine drug-eluting stent 4.012 mm, postdilated with noncompliant Quantum 4.5 balloon under 15 serge to 4.53 mm with excellent results. At the end of the procedure the sheath was removed. Closure device was used FINDINGS: Hemodynamics LV 103/17, end-diastolic pressure of 17 Aorta 105/50 one mean of 71 ANATOMY: Left Main has severe distal disease Left Anterior Descending has severe ostial disease, the vein graft to the LAD is patent Left Circumflex has severe ostial disease, the vein graft to the obtuse marginal branch is patent Right Coronory Artery and has multiple stents with slow flow due to small vessel disease distally Vein Graft evaluation showed A. Jump graft vein graft to the LAD and obtuse marginal that has severe proximal stenosis, successful balloon angioplasty then stent deployment using Alpine drug-eluting stent 4.0 x 12 millimeter expanded to 4.53 with excellent results B. There are another 2 vein grafts that are occluded presumably to the diagonal artery and right coronary artery LV Gram was not done, pressure was measured CONCLUSION: 1. Severe stenosis at the proximal vein graft/jump graft to the LAD and obtuse marginal branch with successful stenting using Alpine drug-eluting stent 4.012 mm expanded to 4.53 with excellent results 2. Multiple stents in the right coronary artery that are patent with small vessel disease distally and slow flow 3. There are 2 occluded vein graft presumably to the diagonal artery and right coronary artery 4. The [place] left main has severe stenosis with severe ostial LAD stenosis that is supplying the diagonal artery that is moderate in size. Continue to monitor at this time DISCUSSION AND RECOMMENDATION: Continue to maximize medical therapy patient has been on Eliquis which will be discontinued due to the fact that patient has a reveal device, he will be loaded with aspirin and Brilinta and I will continue on both medications for the next 3-6 months then stopping Brilinta and restarting Eliquis Anesthesia Type: Conscious Sedation Estimated blood loss (mL): 25 ml Contrast Amount: 150 ml Total Radiation Dose: 953 mGy Post-Procedure Diagnosis Post-operative diagnosis: Coronary artery disease Paroxysmal atrial fibrillation Hypertension Hyperlipidemia JAZ NERI MD November 03, 2017 10:10
[2017-11-03] MEDS: RAMIPRIL 5 MG (ALTACE) CAP PO SCH (12:08)
[2017-11-03] MEDS: OMEGA 3 (FISH OIL) 1000 MG CAP PO SCH ×2 (12:09→22:04)
[2017-11-03] MEDS: MEMANTINE HCL 28 MG PO SCH (12:09)
[2017-11-03] MEDS: Dofetilide 500 MCG PO SCH ×2 (12:36→22:05)
[2017-11-03] MEDS: NS IV 1000 ML 1,000 ML IV SCH ×2 (15:40→20:01)
[2017-11-03] MEDS: TICAGRELOR 90 MG TABLET (BRILINTA) PO SCH (21:06)
[2017-11-03] MEDS ORDERED: PRAVASTATIN 20 MG (PRAVACHOL) TAB PO SCH (22:30)
[2017-11-03] MEDS ORDERED: RIVASTIGMINE 13.3 MG TD SCH (22:30)
[2017-11-04] VITALS: BP 154/80
[2017-11-04 03:55] VITALS: BP 147/77
[2017-11-04 04:01] LABS: HEMOGLOBIN 14.7 G/DL (13.3-17.7); MEAN PLATELET VOLUME 11.1 FL (7.4-10.4); RED BLOOD COUNT 4.59 10^6/uL (4.35-5.85); RED CELL DISTRIBUTION WIDTH 12.8 % (10.0-14.5); WHITE BLOOD COUNT 8.4 10^3/uL (4.3-11.0)
[2017-11-04 04:19] LABS: BUN/CREATININE RATIO 20; CALCIUM 9.3 MG/DL (8.5-10.1); CARBON DIOXIDE 22 MMOL/L (21-32); CHLORIDE 110 MMOL/L (98-107); CREATININE SERUM 0.85 MG/DL (0.60-1.30); GFR ESTIMATED > 60; GLUCOSE 94 MG/DL (70-105); POTASSIUM 3.9 MMOL/L (3.6-5.0); SODIUM 141 MMOL/L (135-145)
[2017-11-04] MEDS: NS IV 1000 ML 1,000 ML IV SCH (04:57)
--- NOTE | 2017-11-04 07:35 | Cardiology Progress Note ---
Subjective Date Seen by Provider: November 04, 2017 Time Seen by Provider: 07:33 Subjective/Events-last exam Patient is laying down in bed, feeling well. Denied any chest pain or shortness of breath. No palpitation, syncope or near syncopal episodes Review of Systems General: No Chills, No Night Sweats, No Fatigue, No Malaise, No Appetite, No Other HEENT: No Head Aches, No Visual Changes, No Eye Pain, No Ear Pain, No Dysphasia , No Sinus Congestion, No Post Nasal Drip, No Sore Throat, No Other Pulmonary: No Dyspnea, No Cough, No Pleuritic Chest Pain, No Other Cardiovascular: No: Chest Pain, Palpitations, Orthopnea, Paroxysmal Noc. Dyspnea, Edema, Lt Headedness, Other Objective-Cardiology Exam Last Set of Vital Signs Vital Signs 11/04/17 03:55 Temp 97.6 Pulse 52 Resp 16 B/P (MAP) 147/77 (100) Pulse Ox 95 O2 Delivery Room Air Capillary Refill : Less Than 3 Seconds I&O Intake and Output 11/04/17 00:00 Intake Total 1200 ml Output Total 200 ml Balance 1000 ml Intake Oral 200 ml IV Total 1000 ml Output Urine Total 200 ml # Voids 2 General: Alert, Oriented X3, Cooperative HEENT: Atraumatic, PERRLA Neck: Supple, No JVD, No Thyromegaly Lungs: Clear to Auscultation, Normal Air Movement Heart: Regular Rate, Normal S1, Normal S2, No Murmurs Abdomen: Normal Bowel Sounds, Soft, No Tenderness, No Hepatosplenomegaly, No Masses Extremities: No Clubbing, No Cyanosis, No Edema, Normal Pulses, No Tenderness/ Swelling Skin: No Rashes, No Breakdown, No Significant Lesion Neuro: Normal Gait, Normal Speech, Strength at 5/5 X4 Ext, Normal Tone, Sensation Intact Psych/Mental Status: Mental Status NL, Mood NL Results Lab Laboratory Tests 11/03/17 07:50 11/04/17 03:35 A/P-Cardiology Admission Diagnosis Coronary artery disease Hypertension Hyperlipidemia Paroxysmal atrial fibrillation Assessment/Plan Coronary artery disease status post cardiac catheterization and stenting to the vein graft 1. Severe stenosis at the proximal vein graft/jump graft to the LAD and obtuse marginal branch with successful stenting using Alpine drug-eluting stent 4.012 mm expanded to 4.53 with excellent results 2. Multiple stents in the right coronary artery that are patent with small vessel disease distally and slow flow 3. There are 2 occluded vein graft presumably to the diagonal artery and right coronary artery 4. The [place] left main has severe stenosis with severe ostial LAD stenosis that is supplying the diagonal artery that is moderate in size. Continue to monitor at this time Hypertension, controlled, continue current medication Hyperlipidemia, continue current medication Paroxysmal atrial fibrillation, has been on Tikosyn. Had a reveal device which depleted battery. I will remove it at this time on wait for the site to heal then possible implantation of a new device. At this time he has been in sinus rhythm I will continue on aspirin and Brilinta and hold Eliquis. JAZ NERI MD November 04, 2017 07:35
[2017-11-04] MEDS ORDERED: ASPI-983 PO (07:37)
[2017-11-04] MEDS ORDERED: TICA90TA PO (07:37)
--- NOTE | 2017-11-04 07:37 | Discharge Inst-Post CATH ---
Discharge Inst-CATH Post Cardiac Cath D/C Inst Follow Up/Plan Appointment with Dr. Rocha's office in 2 weeks CARDIAC CATH DISCHARGE INSTRUCTIONS *Hold Metformin for 48 hours post heart cath. ACTIVITY * Go Home directly and rest. * Limit activity of the leg (or wrist if it was used) for 7 days including aerobics, swimming, jogging, bicycling, etc. * Restrict stair-climbing for 7 days if possible, if not, climb up with your non -cath leg, then bring together on the same step. * Avoid lifting, pushing, pulling or excessive movement of the affected extremity for 7 days. * Customary sexual activity may be resumed after 2 days-use caution not to use a position that strains or causes pain to the affected extremity. * No driving for 24 hours. * NO SMOKING. * Avoid straining for bowel movements for 7 days. * Gentle walking on level ground is allowed. * Returning to work will depend on the type of procedure and the results. Your doctor will discuss this with you. CALL YOUR DOCTOR FOR ANY OF THE FOLLOWING: *If bleeding from the puncture site occurs- Apply gentle pressure to site with clean cloth and call your doctor or EMS. * If a knot or lump forms under the skin, increases in size, or causes pain. * If bruising appears to be worsening or moving further down your leg instead of disappearing. * Temperature above 101 F. CARE OF YOUR GROIN INCISION; * Bruising or purple discoloration of the skin near the puncture site is common. * You may shower only, no bathtub bathing for 5 days. Be careful to avoid slipping as your leg may feel stiff. * If a closure device was used on your femoral artery, please see the attached guide regarding care of the device and your leg. * REMOVE the dressing from your groin the next day after your procedure in the shower. CARE OF YOUR WRIST INCISION; * Bruising or purple discoloration of the skin near the puncture site is common. * You may shower. * DO NOT submerge wrist. * Remove dressing in 24 hours. JAZ ROCHA MD November 04, 2017 07:37
[2017-11-04 07:38] VITALS: BP 135/83
[2017-11-04] MEDS ORDERED: LIDOCAINE/EPI 1%-1:100,000 (XYLOCAINE) 20ML INJ NR (08:00)
[2017-11-04] MEDS ORDERED: LIDOCAINE/EPI 1%-1:200,000 (XYLOCAINE) 10 ML VIAL INJ NR (08:00)
[2017-11-04] MEDS ORDERED: ASPIRIN E.C. 81 MG (ECOTRIN) TAB PO SCH (09:00)
[2017-11-04] MEDS: OMEGA 3 (FISH OIL) 1000 MG CAP PO SCH (09:49)
[2017-11-04] MEDS: TICAGRELOR 90 MG TABLET (BRILINTA) PO SCH (09:49)
[2017-11-04] MEDS: RAMIPRIL 5 MG (ALTACE) CAP PO SCH (09:49)
[2017-11-04] MEDS: Dofetilide 500 MCG PO SCH (09:50)
[2017-11-04] MEDS: MEMANTINE HCL 28 MG PO SCH (09:50)
[2017-11-04 11:14] VITALS: BP 138/82
[2017-11-04 11:47] VITALS: BP 138/82
--- NOTE | 2017-11-04 14:48 | Consultation ---
History of Present Illness History of Present Illness Patient Consulted On(jem/time) 11/04/17 14:43 Date Seen by Provider: November 04, 2017 Time Seen by Provider: 11:20 History of Present Illness Consult requested by Dr. Rocha for removal link device Patient is an 82-year-old male who is in the hospital after current catheterization and stent placement. Patient has a link device battery life is depleted. Patient needs the device removed and they're planning for possible reinsertion a later date of a new device. Areas of causing any pain or discomfort. Patient is on Brilinta and aspirin. He is feeling well today without any complaints. He is being discharged today and would like to have device out prior to discharge. Denies nausea vomiting, fever, sweats, chills, shortness of breath or chest pain. Allergies and Home Medications Allergies Coded Allergies: No Known Drug Allergies (Verified , 05/20/09) Home Medications Aspirin 81 Mg Tablet.dr, 81 MG PO DAILY Prescribed by: JAZ ROCHA on 11/04/17 0737 Cholecalciferol (Vitamin D3) 2,000 Unit Capsule, 2,000 UNIT PO DAILY, (Reported) Dofetilide 500 Mcg Capsule, 500 MCG PO BID, (Reported) Fish Oil/Dha/Epa 1 Each Capsule, 1 EACH PO BID, (Reported) Memantine HCl 28 Mg Cap.spr.24, 28 MG PO DAILY, (Reported) Multivitamin 1 Each Tablet, 1 EACH PO DAILY, (Reported) Pravastatin Sodium 20 Mg Tablet, 20 MG PO HS, (Reported) Ramipril 5 Mg Capsule, 10 MG PO DAILY, (Reported) Rivastigmine 1 Each Patch.td24, 13.3 EACH TD HS, (Reported) Ticagrelor 90 Mg Tablet, 90 MG PO BID Prescribed by: JAZ ROCHA on 11/04/17 0737 Turmeric/Turmeric Root Extract 1 Each Capsule, 1 EACH PO DAILY, (Reported) Patient Home Medication List Home Medication List Reviewed: Yes Past Rjkahme-Sfpblc-Nakcce Hx Patient Social History Smoking Status: Former Smoker Former Smoker, Quit: November 03, 1980 Type Used: Cigarettes Recent Foreign Travel: No Contact w/Someone Who Travel: No Recent Infectious Disease Expo: No Immunizations Up To Date Date of Pneumonia Vaccine: Jul 25, 2010 Date of Influenza Vaccine: Feb 22, 2014 Surgeries History of Surgeries: Yes (Coronary artery bypass graft and heart ablation) Cardiovascular History of Cardiac Disorders: Yes (Coronary artery disease, hypertension, hyperlipidemia, CVA) Reproductive System Hx Reproductive Disorders: No Family Medical History Significant Family History: Heart Disease, Hypertension Family Medial History: Family history: Cardiovascular disease 03 MOTHER, Onset:60 years & older Stroke 03 MOTHER, Onset:60 years & older Review of Systems-General Constitutional: no symptoms reported EENTM: no symptoms reported Respiratory: no symptoms reported Cardiovascular: no symptoms reported Genitourinary: no symptoms reported Musculoskeletal: no symptoms reported Skin: no symptoms reported Psychiatric/Neurological: No Symptoms Reported Physical Exam-General Problems Physical Exam Vital Signs Vital Signs - First Documented 11/03/17 11/03/17 07:58 10:30 Temp 97.1 Pulse 48 Resp 20 B/P (MAP) 134/70 (91) Pulse Ox 98 O2 Delivery Room Air Capillary Refill : Less Than 3 Seconds General Appearance: no apparent distress HEENT: PERRL/EOMI, normal ENT inspection Neck: non-tender, supple Respiratory: no respiratory distress, no accessory muscle use Cardiovascular: regular rate, rhythm Gastrointestinal: non tender, soft Back: normal inspection Extremities: non-tender, normal inspection Neurologic/Psychiatric: flat locker II-XII nml as tested, no motor/sensory deficits, alert, normal mood/affect, oriented x 3 Skin: normal color, warm/dry Lymphatic: no adenopathy Comments Left chest with link device palpable Data Review Labs Laboratory Tests 11/04/17 03:35: White Blood Count 8.4, Red Blood Count 4.59, Hemoglobin 14.7, Hematocrit 41, Mean Corpuscular Volume 89, Mean Corpuscular Hemoglobin 32, Mean Corpuscular Hemoglobin Concent 36, Red Cell Distribution Width 12.8, Platelet Count 195, Mean Platelet Volume 11.1H, Sodium Level 141, Potassium Level 3.9, Chloride Level 110H, Carbon Dioxide Level 22, Anion Gap 9, Blood Urea Nitrogen 17, Creatinine 0.85, Estimat Glomerular Filtration Rate > 60, BUN/Creatinine Ratio 20, Glucose Level 94, Calcium Level 9.3 Microbiology 11/03/17 MRSA Screen - Final, Complete MRSA not isolated Assessment/Plan Assessment/Plan Assessment/Plan Patient is an 82-year-old male with leg device and the left chest. The battery life is depleted in diameter been requested to remove the device. Patient on Brilinta and aspirin. S/p heart cath with stent placement. Patient was discuss risk and benefits of having removal of left chest foreign body. Patient understands risk and benefits of procedure wishes to proceed at bedside. Patient to have device removed. We'll have him follow-up in my office in approximately 10-14 days for suture removal. TYLER FAUSTIN DO November 04, 2017 14:48
--- NOTE | 2017-11-05 06:45 | OPERATIVE REPORT ---
DATE OF SERVICE: 11/03/2017 PREOPERATIVE DIAGNOSIS: Foreign body, left chest. POSTOPERATIVE DIAGNOSIS: Foreign body, left chest. PROCEDURE: Removal of foreign body, left chest, subcutaneous layer. SURGEON: Tyler Reyes DO ANESTHESIA: A 1% lidocaine with epinephrine, total of 8 mL. COMPLICATIONS: None. INDICATIONS: The patient is an 82-year-old male with a lead device. Dr. Rocha has requested this be removed. The patient is on blood thinner. He understands risks and benefits of procedure and wished to proceed with the procedure. Consent was signed on the chart. DESCRIPTION OF PROCEDURE: The patient was prepped and draped in a sterile fashion. Local anesthetic was infiltrated to the left chest. A 15 blade scalpel was used to make a small incision over the palpable side of the device. A hemostat was used to dissect down through the subcutaneous tissues until the device was encountered, was able to be grasped and removed. The device was removed in its entirety. The skin was then closed using 4-0 Prolene in a simple interrupted fashion. The area was then washed and dried and sterile bandage was applied. The patient tolerated the procedure well without any complications. Job ID: [id number] DocumentID: [id number] Dictated Date: 11/04/2017 14:33:53 Stations Superintendent Date: 11/04/2017 23:00:52 Dictated By: TYLER REYES DO
== END 2017-11-04 11:37 | disposition home or self-care (01) ==
LOC: CATH 06:55 → ICU 10:30 → CATH 11-04 11:37
PROVIDERS: ATTEND Internal Medicine Cardiovascular Disease
DX: I25.10 Atherosclerotic heart disease of native coronary artery without angina pectoris (principal); I48.0 Paroxysmal atrial fibrillation; I10 Essential (primary) hypertension; E78.5 Hyperlipidemia, unspecified; I65.23 Occlusion and stenosis of bilateral carotid arteries; Z87.891 Personal history of nicotine dependence; Z95.1 Presence of aortocoronary bypass graft; Z86.73 Personal history of transient ischemic attack (TIA), and cerebral infarction without residual deficits; Z11.2 Encounter for screening for other bacterial diseases
CPT/HCPCS: 36415; 71045; 80048; 80053; 80061; 85027; 85610; 85730; 87081; 93005; 93459

== ENCOUNTER → 2017-11-24 | Day surgery (SDC) | payer MEDICARE ==
[~2017-11-24] VITALS: Ht 179.1 cm; Wt 68.0 kg
[~2017-11-24] MED LIST changes: +APIX5TAB PO; +ASPI-983 PO; +CHOL200012 PO; +DOFE500C4 PO; +FISH1CAP15 PO; +LIDOCAINE 1% INJ 20 ML 20 ML VIAL ONE; +MEMA28CA5 PO; +MULT-974 PO; +PRAV20TA3 PO; +RAMI5CAP PO; +RIVA1PAT12 TD; +TICA90TA PO; +TURM500C4 PO
--- OUTSIDE RECORDS SUMMARY | 2017-11-24 09:43 | XMS REPORT | Clinical Summary ---
Author Author [facility] Organization [facility] Address Unknown Phone Unavailable Care Team Providers Care Case Picker Name Role Phone Doris Can MD PCP Source Comments Some departments are not documenting in the electronic medical record. If you do not see the information that you expected, contact Release of Information in the Health Information Management department at [phone] for further assistance in locating additional records.[facility] Allergies Active Allergy Reactions Severity Noted Date [...] Palpitations 01/30/2014 Overview: 12/15/13 LINQ (serial # [id number]) implanted by Dr. Rocha CAD (coronary artery [...] on daily Plavix therapy. SVT (supraventricular tachycardia) ([facility]) 01/30/2014 Overview: 10/09/05 SVT documented by Holter [...] on Pravastatin 10 mg daily. Atrial fibrillation ([facility]) 01/30/2014 Overview: 02/22/14 Tikosyn initation L ast Assessment & Plan: 29 events on his ILR appear to be atrial fibrillation with RVR. He also had 2 episodes of an atrial tachycardia. Ventricular rates were rapid, ranging between 150-160 bpm. All episodes occurred between 5585-6887 am. Given how rapid his rates are, [...]
--- OUTSIDE RECORDS SUMMARY | 2017-11-24 09:45 | XMS REPORT | Continuity of Care Document ---
Author Author [facility] Organization [facility] Address Unknown Phone Unavailable Allergies Active Description Code Type Severity Reaction Onset Reported/Identified Relationship to Patient Clinical Status Yes No Known Drug Allergies [id number] Drug Allergy Unknown N/A 05/20/2009 Medications There is no data. Problems Date Dx Coded Attending Type Code Diagnosis Diagnosed By 07/28/2013 RAVEN FALL MD Ot 272.0 PURE HYPERCHOLESTEROLEM 07/28/2013 RAVEN FALL MD Ot 272.4 HYPERLIPIDEMIA NEC/NOS 07/28/2013 RAVEN FALL MD Ot 294.20 DEMENTIA, UNSPECIFIED, WITHOUT BEHAVIORA 07/28/2013 RVAEN FALL MD Ot 401.9 HYPERTENSION NOS 07/28/2013 RAVEN FALL MD Ot 410.91 ACUTE MYOCARD INFARCT,UNSPEC SITE,INITIA 07/28/2013 RAVEN FALL MD Ot 414.01 CORONARY ATHEROSCLEROSIS OF [place] CORON 07/28/2013 RAVEN FALL MD Ot 414.02 [...] NERI MD Ot 414.01 CORONARY ATHEROSCLEROSIS OF [place] CORON 12/15/2013 JAZ NERI MD Ot 427.81 SINOATRIAL NODE DYSFUNCT 12/15/2013 JAZ NERI MD Ot 434.91 CEREBRAL ART OCCLUSION NOS W CEREBRAL IN 12/15/2013 JAZ NERI MD Ot 785.0 TACHYCARDIA NOS 12/15/2013 JAZ NERI MD Ot 785.1 PALPITATIONS 12/15/2013 JAZ NERI MD Ot V15.82 HISTORY OF TOBACCO USE 12/15/2013 AJZ NERI MD Ot 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 12/15/2013 [...] MD Ot I25.10 ATHSCL HEART DISEASE OF [place] CORONARY 09/20/2015 JAZ NERI MD Ot I48.1 PERSISTENT ATRIAL FIBRILLATION 10/09/2015 JAZ NERI MD Ot E78.2 MIXED HYPERLIPIDEMIA 10/09/2015 JAZ NERI MD Ot I10 ESSENTIAL (PRIMARY) HYPERTENSION 10/09/2015 JAZ NERI MD Ot I25.10 ATHSCL HEART DISEASE OF [place] CORONARY 10/09/2015 JAZ NERI MD Ot I48.1 PERSISTENT ATRIAL FIBRILLATION 10/16/2015 JAZ NERI MD Ot E78.2 MIXED HYPERLIPIDEMIA 10/16/2015 JAZ NERI MD Ot I10 ESSENTIAL (PRIMARY) HYPERTENSION 10/16/2015 JAZ NERI MD Ot I25.10 ATHSCL HEART DISEASE OF [place] CORONARY 10/16/2015 JAZ NERI MD Ot I48.1 PERSISTENT ATRIAL FIBRILLATION 10/22/2017 JAZ NERI MD Ot E78.2 MIXED HYPERLIPIDEMIA 10/22/2017 JAZ NERI MD J Ot I10 ESSENTIAL (PRIMARY) HYPERTENSION 10/22/2017 JAZ NERI MD Ot I25.10 ATHSCL HEART DISEASE OF [place] CORONARY 10/22/2017 JAZ NERI MD Ot I48.1 PERSISTENT ATRIAL FIBRILLATION 10/22/2017 JAZ NERI MD Ot E78.2 MIXED HYPERLIPIDEMIA 10/22/2017 JAZ NERI MD J Ot I10 ESSENTIAL (PRIMARY) HYPERTENSION 10/22/2017 JAZ NERI MD Ot I25.10 ATHSCL HEART DISEASE OF [place] CORONARY 10/22/2017 JAZ NERI MD J Ot I48.1 PERSISTENT ATRIAL FIBRILLATION 10/22/2017 JAZ NERI MD J Ot I25.10 ATHSCL HEART DISEASE OF [place] CORONARY 10/22/2017 JAZ NERI MD J Ot I48.0 PAROXYSMAL ATRIAL FIBRILLATION 10/22/2017 JAZ NERI MD Ot I49.5 SICK SINUS SYNDROME 10/22/2017 JAZ NERI MD J Ot R00.2 PALPITATIONS 10/22/2017 JAZ NERI MD Ot R07.9 CHEST PAIN, UNSPECIFIED 10/22/2017 JAZ NERI MD J Ot I25.10 ATHSCL HEART DISEASE OF [place] CORONARY 10/22/2017 JAZ NERI MD Ot I48.0 PAROXYSMAL ATRIAL FIBRILLATION 10/22/2017 JAZ NERI MD Ot I49.5 SICK SINUS SYNDROME 10/22/2017 JAZ NERI MD Ot R00.2 PALPITATIONS 10/22/2017 JAZ NERI MD Ot R07.9 CHEST PAIN, UNSPECIFIED 10/25/2017 JAZ NERI MD Ot E78.2 MIXED HYPERLIPIDEMIA 10/25/2017 JAZ NERI MD Ot I10 ESSENTIAL (PRIMARY) HYPERTENSION 10/25/2017 JAZ NERI MD Ot I25.10 ATHSCL HEART DISEASE OF [place] CORONARY 10/25/2017 JAZ NERI MD Ot I48.1 PERSISTENT ATRIAL FIBRILLATION 10/25/2017 JAZ NERI MD Ot E78.2 MIXED HYPERLIPIDEMIA 10/25/2017 JAZ NERI MD J Ot I10 ESSENTIAL (PRIMARY) HYPERTENSION 10/25/2017 JAZ NERI MD Ot I25.10 ATHSCL HEART DISEASE OF [place] CORONARY 10/25/2017 JAZ NERI MD Ot I48.1 PERSISTENT ATRIAL FIBRILLATION 10/25/2017 JAZ NERI MD Ot I25.10 ATHSCL HEART DISEASE OF [place] CORONARY 10/25/2017 JAZ NERI MD Ot I48.0 PAROXYSMAL ATRIAL FIBRILLATION 10/25/2017 JAZ NERI MD Ot I49.5 SICK SINUS SYNDROME 10/25/2017 JAZ NERI MD Ot R00.2 PALPITATIONS 10/25/2017 JAZ NERI MD Ot R07.9 CHEST PAIN, UNSPECIFIED 10/26/2017 JAZ NERI MD Ot I25.10 ATHSCL HEART DISEASE OF [place] CORONARY 10/26/2017 JAZ NERI MD Ot I48.0 PAROXYSMAL ATRIAL FIBRILLATION 10/26/2017 JAZ NERI MD Ot I49.5 SICK SINUS SYNDROME 10/26/2017 JAZ NERI MD Ot R00.2 PALPITATIONS 10/26/2017 JAZ NERI MD Ot R07.9 CHEST PAIN, UNSPECIFIED 11/04/2017 JAZ NERI MD Ot E78.5 HYPERLIPIDEMIA, UNSPECIFIED 11/04/2017 JAZ NERI MD Ot I10 ESSENTIAL (PRIMARY) HYPERTENSION 11/04/2017 JAZ NERI MD Ot I25.10 ATHSCL HEART DISEASE OF [place] CORONARY 11/04/2017 JAZ NERI MD Ot I48.0 PAROXYSMAL ATRIAL FIBRILLATION 11/04/2017 JAZ NERI MD Ot I65.23 OCCLUSION AND STENOSIS OF BILATERAL [place] 11/04/2017 JAZ NERI MD Ot Z11.2 ENCOUNTER FOR SCREENING FOR OTHER BACTER 11/04/2017 JAZ NERI MD Ot Z86.73 PRSNL HX OF TIA (TIA), AND CEREB INFRC W 11/04/2017 JAZ NERI MD Ot Z87.891 PERSONAL HISTORY OF NICOTINE DEPENDENCE 11/04/2017 JAZ NERI MD Ot Z95.1 PRESENCE OF AORTOCORONARY BYPASS GRAFT 11/04/2017 JAZ NERI MD Ot E78.5 HYPERLIPIDEMIA, UNSPECIFIED 11/04/2017 JAZ NERI MD Ot I10 ESSENTIAL (PRIMARY) HYPERTENSION 11/04/2017 JAZ NERI MD Ot I25.10 ATHSCL HEART DISEASE OF [place] CORONARY 11/04/2017 JAZ NERI MD Ot I48.0 PAROXYSMAL ATRIAL FIBRILLATION 11/04/2017 JAZ NERI MD Ot I65.23 OCCLUSION AND STENOSIS OF [place] 11/04/2017 JAZ NERI MD Ot Z11.2 ENCOUNTER FOR SCREENING FOR OTHER BACTER 11/04/2017 JAZ NERI MD Ot Z86.73 PRSNL HX OF TIA (TIA), AND CEREB INFRC W 11/04/2017 JAZ NERI MD Ot Z87.891 PERSONAL HISTORY OF NICOTINE DEPENDENCE 11/04/2017 JAZ NERI MD Ot Z95.1 PRESENCE OF AORTOCORONARY BYPASS GRAFT 11/05/2017 JAZ NERI MD Ot E78.5 HYPERLIPIDEMIA, UNSPECIFIED 11/05/2017 JAZ NERI MD Ot I10 ESSENTIAL (PRIMARY) HYPERTENSION 11/05/2017 JAZ NERI MD Ot I25.10 ATHSCL HEART DISEASE OF [place] CORONARY 11/05/2017 JAZ NERI MD Ot I48.0 PAROXYSMAL ATRIAL FIBRILLATION 11/05/2017 JAZ NERI MD Ot I65.23 OCCLUSION AND STENOSIS OF [place] 11/05/2017 JAZ NERI MD Ot Z11.2 ENCOUNTER FOR SCREENING FOR OTHER BACTER 11/05/2017 JAZ NERI MD Ot Z86.73 PRSNL HX OF TIA (TIA), AND CEREB INFRC W 11/05/2017 JAZ NERI MD Ot Z87.891 PERSONAL HISTORY OF NICOTINE DEPENDENCE 11/05/2017 JAZ NERI MD Ot Z95.1 PRESENCE OF AORTOCORONARY BYPASS GRAFT 11/09/2017 JAZ NERI MD Ot I25.10 ATHSCL HEART DISEASE OF [place] CORONARY 11/09/2017 JAZ NERI MD Ot I48.0 PAROXYSMAL ATRIAL FIBRILLATION 11/09/2017 JAZ NERI MD Ot I49.5 SICK SINUS SYNDROME 11/09/2017 JAZ NERI MD Ot R00.2 PALPITATIONS 11/09/2017 JAZ NERI MD Ot R07.9 CHEST PAIN, UNSPECIFIED 11/15/2017 JAZ NERI MD Ot E78.5 HYPERLIPIDEMIA, UNSPECIFIED 11/15/2017 JAZ NERI MD Ot I10 ESSENTIAL (PRIMARY) HYPERTENSION 11/15/2017 JAZ NERI MD Ot I25.10 ATHSCL HEART DISEASE OF [place] CORONARY 11/15/2017 JAZ NERI MD Ot I48.0 PAROXYSMAL ATRIAL FIBRILLATION 11/15/2017 JAZ NERI MD, Ot I65.23 OCCLUSION AND STENOSIS OF [place] 11/15/2017 JAZ NERI MD, Ot Z11.2 ENCOUNTER FOR SCREENING FOR OTHER BACTER 11/15/2017 JAZ NERI MD, Ot Z86.73 PRSNL HX OF TIA (TIA), AND CEREB INFRC W 11/15/2017 JAZ NERI MD, Ot Z87.891 PERSONAL HISTORY OF NICOTINE DEPENDENCE 11/15/2017 JAZ NERI MD, Ot Z95.1 PRESENCE OF AORTOCORONARY BYPASS GRAFT 11/17/2017 JAZ NERI MD Ot I25.10 ATHSCL HEART DISEASE OF [place] CORONARY 11/17/2017 JAZ NERI MD Ot I48.0 PAROXYSMAL ATRIAL FIBRILLATION 11/17/2017 JAZ NERI MD, Ot I49.5 SICK SINUS SYNDROME 11/17/2017 JAZ NERI MD Ot R00.2 PALPITATIONS 11/17/2017 JAZ NERI MD Ot R07.9 CHEST PAIN, UNSPECIFIED 11/18/2017 JAZ NERI MD, Ot I25.10 ATHSCL HEART DISEASE OF [place] CORONARY 11/18/2017 JAZ NERI MD, Ot I48.0 PAROXYSMAL ATRIAL FIBRILLATION 11/18/2017 JAZ NERI MD, Ot I49.5 SICK SINUS SYNDROME 11/18/2017 JAZ NERI MD Ot R00.2 PALPITATIONS 11/18/2017 JAZ NERI MD Ot R07.9 CHEST PAIN, UNSPECIFIED Procedures Code Description Performed By Performed On 37.22 LEFT HEART CARDIAC CATH 07/26/2013 88.49 CONTRAST ARTERIOGRAM NEC 07/26/2013 88.53 LT HEART ANGIOCARDIOGRAM 07/26/2013 88.56 CORONAR ARTERIOGR-2 CATH 07/26/2013 Results Test Result Range Automated blood complete blood count (hemogram) panel - 11/03/17 07:50 Blood leukocytes automated count (number/volume) 7.3 10*3/uL 4.3-11.0 Blood erythrocytes automated count (number/volume) 4.61 10*6/uL 4.35-5.85 Venous blood hemoglobin measurement (mass/volume) 14.4 g/dL 13.3-17.7 Blood hematocrit (volume fraction) 42 % 40-54 Automated erythrocyte mean corpuscular volume 91 [foz_us] 80-99 Automated erythrocyte mean corpuscular hemoglobin (mass per erythrocyte) 31 pg 25-34 Automated erythrocyte mean corpuscular hemoglobin concentration measurement ( mass/volume) 34 g/dL 32-36 Automated erythrocyte distribution width ratio 13.0 % 10.0-14.5 Automated blood platelet count (count/volume) 193 10*3/uL 130-400 Automated blood platelet mean volume measurement 10.7 [foz_us] 7.4-10.4 PT panel in platelet poor plasma by coagulation assay - 11/03/17 07:50 Prothrombin time (PT) in platelet poor plasma by coagulation assay 13.9 s 12.2-14.7 INR in platelet poor plasma or blood by coagulation assay 1.1 0.8-1.4 Activated partial thromboplastin time (aPTT) in platelet poor plasma bycoagulation assay - 11/03/17 07:50 Activated partial thromboplastin time (aPTT) in platelet poor plasma bycoagulation assay 29 s 24-35 Comprehensive metabolic panel - 11/03/17 07:50 Serum or plasma sodium measurement (moles/volume) 142 mmol/L 135-145 Serum or plasma potassium measurement (moles/volume) 3.9 mmol/L 3.6-5.0 Serum or plasma chloride measurement (moles/volume) 108 mmol/L 98-107 Carbon dioxide 25 mmol/L 21-32 Serum or plasma anion gap determination (moles/volume) 9 mmol/L 5-14 Serum or plasma urea nitrogen measurement (mass/volume) 18 mg/dL 7-18 Serum or plasma creatinine measurement (mass/volume) 0.96 mg/dL 0.60-1.30 Serum or plasma urea nitrogen/creatinine mass ratio 19 NRG Serum or plasma creatinine measurement with calculation of estimated glomerular filtration rate > NRG Serum or plasma glucose measurement (mass/volume) 103 mg/dL 70-105 Serum or plasma calcium measurement (mass/volume) 9.3 mg/dL 8.5-10.1 Serum or plasma total bilirubin measurement (mass/volume) 0.7 mg/dL 0.1-1.0 Serum or plasma alkaline phosphatase measurement (enzymatic activity/volume) 45 U/L 40-136 Serum or plasma aspartate aminotransferase measurement (enzymatic activity/ volume) 21 U/L 5-34 Serum or plasma alanine aminotransferase measurement (enzymatic activity/volume ) 17 U/L 0-55 Serum or plasma protein measurement (mass/volume) 6.8 g/dL 6.4-8.2 Serum or plasma albumin measurement (mass/volume) 4.2 g/dL 3.2-4.5 Lipid 1996 panel - 11/03/17 07:50 Serum or plasma triglyceride measurement (mass/volume) 68 mg/dL <150 Serum or plasma cholesterol measurement (mass/volume) 150 mg/dL < 200 Serum or plasma cholesterol in HDL measurement (mass/volume) 44 mg/ dL 40-60 Cholesterol in LDL [mass/volume] in serum or plasma by direct assay 95 mg/dL 1-129 Serum or plasma cholesterol in VLDL measurement (mass/volume) 14 mg/ dL 5-40 Methicillin resistant Staphylococcus aureus (MRSA) screening culture - 07:50 Methicillin resistant Staphylococcus aureus (MRSA) screening culture NEG NRG Automated blood complete blood count (hemogram) panel - 11/04/17 03:35 Blood leukocytes automated count (number/volume) 8.4 10*3/uL 4.3-11.0 Blood erythrocytes automated count (number/volume) 4.59 10*6/uL 4.35-5.85 Venous blood hemoglobin measurement (mass/volume) 14.7 g/dL 13.3-17.7 Blood hematocrit (volume fraction) 41 % 40-54 Automated erythrocyte mean corpuscular volume 89 [foz_us] 80-99 Automated erythrocyte mean corpuscular hemoglobin (mass per erythrocyte) 32 pg 25-34 Automated erythrocyte mean corpuscular hemoglobin concentration measurement ( mass/volume) 36 g/dL 32-36 Automated erythrocyte distribution width ratio 12.8 % 10.0-14.5 Automated blood platelet count (count/volume) 195 10*3/uL 130-400 Automated blood platelet mean volume measurement 11.1 [foz_us] 7.4-10.4 Whole blood basic metabolic panel - 11/04/17 03:35 Serum or plasma sodium measurement (moles/volume) 141 mmol/L 135-145 Serum or plasma potassium measurement (moles/volume) 3.9 mmol/L 3.6-5.0 Serum or plasma chloride measurement (moles/volume) 110 mmol/L 98-107 Carbon dioxide 22 mmol/L 21-32 Serum or plasma anion gap determination (moles/volume) 9 mmol/L 5-14 Serum or plasma urea nitrogen measurement (mass/volume) 17 mg/dL 7-18 Serum or plasma creatinine measurement (mass/volume) 0.85 mg/dL 0.60-1.30 Serum or plasma urea nitrogen/creatinine mass ratio 20 NRG Serum or plasma creatinine measurement with calculation of estimated glomerular filtration rate > NRG Serum or plasma glucose measurement (mass/volume) 94 mg/dL 70-105 Serum or plasma calcium measurement (mass/volume) 9.3 mg/dL 8.5-10.1 Encounters ACCT No. Visit Date/Time Discharge Status Pt. Type Provider Facility Loc./Unit Complaint [id number] 11/03/2017 06:55:00 11/04/2017 11:37:00 DIS Outpatient JAZ NERI MD [facility] CATH ABN STRESS,CAD,PAF,HTN [id number] 10/25/2017 11:24:00 10/25/2017 23:59:59 CLS Outpatient JAZ NERI MD [facility] CARD CAD,CHEST PAIN, PALPITATIONS [id number] 10/20/2017 08:12:00 10/20/2017 23:59:59 CLS Outpatient JAZ NERI MD [facility] CARD CAD,CHEST PAIN, PALPITATIONS [id number] 12/26/2015 11:58:00 12/26/2015 23:59:59 CLS Outpatient DAVINA COLON APRN [facility] QUICK [id number] 09/18/2015 08:19:00 09/18/2015 23:59:59 CLS Outpatient JAZ NERI MD [facility] CARD AFIB, WITH RVR, CAD, HTN ,HLP [id number] 08/15/2015 09:10:00 08/15/2015 23:59:59 CLS Outpatient JAZ NERI MD [facility] CARD AFIB, WITH RVR, CAD, HTN ,HLP [id number] 05/31/2014 01:45:00 05/31/2014 14:00:00 DIS Inpatient RAVEN FALL MD [facility] ICU ACCIDENTAL OVERDOSE [id number] 12/15/2013 11:44:00 12/15/2013 12:46:00 DIS Outpatient HALLE COVARRUBIAS, JAZ Bourne [facility] CATH PAF,CVA,PAT,CAD, RECURRENT PALPITATIONS [id number] 07/25/2013 13:59:00 07/28/2013 10:55:00 DIS Inpatient EUFEMIA COVARRUBIAS, RAVEN Quevedo [facility] CSD CVA ELEVATED TROPONIN [id number] 01/26/2012 10:13:00 Document Registration [id number] 03/17/2011 13:30:00 Document Registration [id number] 03/03/2011 09:45:00 Document Registration 0000 04/18/2017 03:34:34 04/18/2017 23:59:59 CLS Outpatient [id number] 05/31/2014 01:05:06 ACT Document Registration
[2017-11-24 10:04] VITALS: BP 131/90
--- NOTE | 2017-11-24 18:36 | Implantation of Loop Monitor ---
Implant of Loop Monitior IMPLANTATION OF LOOP MONITOR REPORT DATE OF PROCEDURE: 11/24/17 PREOP DIAGNOSIS: Atrial fibrillation POSTOP DIAGNOSIS: Atrial fibrillation PROCEDURE DETAILS: The patient is a 82 male with history of paroxysmal atrial fibrillation requiring long-term surveillance. Therefore implantable loop recorder was discussed and agreed with the patient. Informed consent was taken. All risks and complications were discussed at length. The patient was draped and prepped in the usual sterile fashion. Local anesthesia was lidocaine, which was given in the substernal area close to the 4th intercostal space. Loop monitor [employer]io Serial number [id number] was implanted according to the protocol. Steri-Strips were placed at the end of the procedure. There were no complications and the patient tolerated the procedure well. The device was interrogated with a voltage of. ANESTHESIA: Local anesthesia with lidocaine. COMPLICATIONS: None CONTRAST/FLUOROSCOPY: None CONCLUSION: Successful Loop recorder implantation FINAL DIAGNOSIS: Atrial fibrillation CAD HTN CVA JAZ NERI MD Nov 24, 2017 18:36
== END | disposition home or self-care (01) ==
LOC: CATH 09:39
PROVIDERS: ATTEND Internal Medicine Cardiovascular Disease
DX: I48.0 Paroxysmal atrial fibrillation (principal); I49.5 Sick sinus syndrome; I25.10 Atherosclerotic heart disease of native coronary artery without angina pectoris; I10 Essential (primary) hypertension; E78.5 Hyperlipidemia, unspecified; I65.23 Occlusion and stenosis of bilateral carotid arteries; Z86.73 Personal history of transient ischemic attack (TIA), and cerebral infarction without residual deficits; Z95.1 Presence of aortocoronary bypass graft; Z95.5 Presence of coronary angioplasty implant and graft; Z79.02 Long term (current) use of antithrombotics/antiplatelets; Z79.82 Long term (current) use of aspirin; Z79.899 Other long term (current) drug therapy
CPT/HCPCS: 33282

== ENCOUNTER 2020-05-01 15:35 | Outpatient (CLI) | payer MEDICARE ==
[~2020-05-01 15:35] MED LIST changes: +ASPI-1238 PO; -ASPI-983 PO; -LIDOCAINE 1% INJ 20 ML 20 ML VIAL ONE; -RAMI5CAP PO; +RAMI5CAP65 PO
== END 2020-05-01 16:24 | disposition home or self-care (01) ==
LOC: SLEEP 15:35
PROVIDERS: ATTEND Nurse Practitioner Family
DX: G47.10 Hypersomnia, unspecified (principal)

== ENCOUNTER → 2020-09-09 | Outpatient (CLI) | payer MEDICARE | LOC: CARD 13:00 | PROVIDERS: ATTEND Physician Assistant | DX: I25.10 Atherosclerotic heart disease of native coronary artery without angina pectoris (principal); I10 Essential (primary) hypertension | CPT/HCPCS: 93306 ==

== ENCOUNTER → 2020-10-16 | Outpatient (CLI) | payer MEDICARE ==
[~2020-10-16] VITALS: Ht 177 cm; Wt 75.0 kg
[~2020-10-16] MED LIST changes: +CATHETER FLUSH 10 ML SYR IV PRN; +REGADENOSON 0.4 MG/5 ML SYR (LEXISCAN) IV ONE
[2020-10-16 10:15] VITALS: BP 120/67
--- NOTE | 2020-10-16 13:53 | Cardiology Stress Test Report ---
Stress Test Report Date of Procedure/Referring: Date of Procedure: October 16, 2020 [place] Admitting Physician Doris Can MD Indications: CAD Baseline Heart Rate: 52 Baseline Blood Pressure: Blood Pressure Systolic: 120 Blood Pressure Diastolic: 67 Baseline Vitals Vital Signs Date Time Temp Pulse Resp B/P (MAP) Pulse Ox O2 Delivery O2 Flow Rate FiO2 10/16/20 10:15 66 17 120/67 (84) 99 Nasal Cannula Baseline EKG: Baseline EKG: RBBB Summary After explaining the procedure to the patient, he signed a consent and then brought to the stress nuclear laboratory. Patient received 0.4 mg Lexiscan for stress test, ECG, heart rate and blood pressure were monitored continuously. Resting and stress dose of radio tracer were injected, imaging was acquired and reviewed in short axis, horizontal long axis and vertical long axis views. TID: 1.11 SSS: 8 SDS: 5 EF: 64 1. Patient tolerated Lexiscan well 2. Mild reversible ischemia involving the anterior wall and anterolateral wall 3. Normal left ventricular size, EF 64% JAZ NERI MD October 16, 2020 13:53
== END ==
LOC: CARD 08:30
PROVIDERS: ATTEND Physician Assistant
DX: I25.10 Atherosclerotic heart disease of native coronary artery without angina pectoris (principal); I10 Essential (primary) hypertension
CPT/HCPCS: 78452; 93017; A9502

== ENCOUNTER 2020-10-23 10:42 | Day surgery (SDC) | payer MEDICARE ==
[~2020-10-23] VITALS: Ht 177 cm; Wt 68.0 kg
[2020-10-23] VITALS (12 sets, daily range): BP systolic 116–137; BP diastolic 63–78
[~2020-10-23 10:42] MED LIST changes: -CATHETER FLUSH 10 ML SYR IV PRN; -REGADENOSON 0.4 MG/5 ML SYR (LEXISCAN) IV ONE
[2020-10-23] MEDS ORDERED: HEParin (CATH LAB) 2,000 ML IV ONE (10:49)
[2020-10-23] MEDS ORDERED: LIDOCAINE 1% INJ 20 ML 20 ML VIAL ONE (10:49)
[2020-10-23] MEDS ORDERED: NS IV 1000 ML 1,000 ML ONE (10:49)
[2020-10-23] MEDS ORDERED: NS IV 1000 ML 1,000 ML IV SCH ×2 (11:00→13:00)
[2020-10-23 11:29] LABS: HEMATOCRIT 46 % (40-54); HEMOGLOBIN 15.1 g/dL (13.3-17.7); MEAN CORPUSCULAR HEMOGLOBIN 31 pg (25-34); MEAN CORPUSCULAR HGB CONC 33 g/dL (32-36); MEAN CORPUSCULAR VOLUME 94 fL (80-99); MEAN PLATELET VOLUME 10.5 fL (9.0-12.2); PLATELET COUNT 241 10^3/uL (130-400); WHITE BLOOD COUNT 8.1 10^3/uL (4.3-11.0)
--- NOTE | 2020-10-23 11:35 | Diagnostic Imaging Report ---
INDICATION: Chest pain. EXAMINATION: Portable chest at 11:29 a.m. FINDINGS: There are postop changes from CABG surgery. Heart size and pulmonary vascularity are normal. Lungs are clear. There are no effusions or pneumothoraces. IMPRESSION: No acute abnormalities in the chest. Dictated by: Dictated on workstation # [id number]
[2020-10-23 11:43] LABS: PROTHROMBIN TIME PATIENT 13.7 SEC (12.2-14.7)
[2020-10-23 11:48] LABS: ALBUMIN 4.4 GM/DL (3.2-4.5); CHLORIDE 103 MMOL/L (98-107); POTASSIUM 3.8 MMOL/L (3.6-5.0); SODIUM 141 MMOL/L (135-145)
[2020-10-23 11:49] LABS: CALCIUM 9.7 MG/DL (8.5-10.1)
[2020-10-23 11:50] LABS: TRIGLYCERIDES 58 MG/DL (<150); VLDL CHOLESTEROL 12 MG/DL (5-40)
[2020-10-23 11:51] LABS: GLUCOSE 85 MG/DL (70-105); TOTAL PROTEIN 7.6 GM/DL (6.4-8.2)
[2020-10-23 11:52] LABS: CARBON DIOXIDE 29 MMOL/L (21-32)
[2020-10-23 11:53] LABS: BILIRUBIN,TOTAL 0.6 MG/DL (0.1-1.0)
[2020-10-23 11:54] LABS: ALKALINE PHOSPHATASE 68 U/L (40-136); CREATININE SERUM 1.12 MG/DL (0.60-1.30); GFR ESTIMATED > 60
[2020-10-23 11:55] LABS: CHOLESTEROL 149 MG/DL (< 200)
[2020-10-23 11:56] LABS: BUN/CREATININE RATIO 15
[2020-10-23 11:57] LABS: HDL CHOLESTEROL 51 MG/DL (40-60)
[2020-10-23 11:58] LABS: ALANINE AMINOTRANSFERASE 19 U/L (0-55)
[2020-10-23] MEDS ORDERED: ASPI-1238 PO (12:04)
[2020-10-23] MEDS ORDERED: APIX5TAB PO (12:04)
[2020-10-23] MEDS ORDERED: OMEG1CAP24 PO (12:04)
[2020-10-23] MEDS ORDERED: CHOL200074 PO (12:04)
[2020-10-23] MEDS ORDERED: fentaNYL INJ 100 MCG/2 ML AMP ONE (12:08)
[2020-10-23] MEDS ORDERED: MIDAZOLAM 5 MG/5 ML (VERSED) VIAL ONE (12:08)
--- NOTE | 2020-10-23 12:56 | Conscious Sedation/ASA ---
Conscious Sedation Pre-Proced Time 12:56 ASA Score 3 For ASA 3 and 4: Consider anesthesia and medical clearance. Also, for patients with a history of failed moderate sedation consider anesthesia. Airway Lungs Heart ASA score ASA 1: a normal healthy patient ASA 2: a patient with a mild systemic disease (mid diabetes, controlled hypertension, obesity x ASA 3: a patient with a severe systemic disease that limits activity (angina, COPD, prior Myocardial infarction) ASA 4: a patient with an incapacitating disease that is a constant threat to life (CHF, renal failure) ASA 5: a moribund patient not expected to survive 24 hrs. (ruptured aneurysm) ASA 6: a declared brain- patient whose organs are being harvested. For emergent operations, add the letter E after the classification Mallampati Classification Grade 3 Sedation Plan Analgesia, Amnesia, Plan communicated to team members, Discussed options with patient/fam, Discussed risks with patient/fam The patient is an appropriate candidate to undergo the planned procedure, sedation, and anesthesia. The patient immediately re-assessed prior to indication. JAZ NERI MD October 23, 2020 12:56 pm
--- NOTE | 2020-10-23 12:58 | Discharge Inst-Post CATH ---
Discharge Inst-CATH/EP Problems Reviewed?: Yes Post Cardiac Cath/EP D/C Inst Follow Up/Plan Appointment with Dr. Rocha's office in 2 to 4 weeks <b>CARDIAC CATH/EP PROCEDURE DISCHARGE INSTRUCTIONS</b> ACTIVITY * Go Home directly and rest. * Limit activity of the leg (or wrist if it was used) for 7 days including aer obics, swimming, jogging, bicycling, etc. * Restrict stair-climbing for 7 days if possible, if not, climb up with your non-cath leg, then bring together on the same step. * Avoid lifting, pushing, pulling or excessive movement of the affected extremi ty for 7 days. * Customary sexual activity may be resumed after 2 days-use caution not to use a position that strains or causes pain to the affected extremity. * No driving for 24 hours. * NO SMOKING. * Avoid straining for bowel movements for 7 days. * Gentle walking on level ground is allowed. * Returning to work will depend on the type of procedure and the results. Your doctor will discuss this with you. CALL YOUR DOCTOR FOR ANY OF THE FOLLOWING: *If bleeding from the puncture site occurs- Apply gentle pressure to site with clean cloth and call your doctor or EMS. * If a knot or lump forms under the skin, increases in size, or causes pain. * If bruising appears to be worsening or moving further down your leg instead of disappearing. * Temperature above 101 F. CARE OF YOUR GROIN INCISION; * Bruising or purple discoloration of the skin near the puncture site is common. * You may shower only, no bathtub bathing for 5 days. Be careful to avoid slipping as your leg may feel stiff. * If a closure device was used on your femoral artery, please see the attached guide regarding care of the device and your leg. * Leave dressing on FOR 24 hours. CARE OF YOUR WRIST INCISION; * Bruising or purple discoloration of the skin near the puncture site is common. * You may shower. * DO NOT submerge wrist. * Leave dressing on FOR 24 hours. JAZ ROCHA MD October 23, 2020 12:58 pm
[2020-10-23] MEDS ORDERED: PATIENT MAY USE OWN MEDS, ALL PO SCH (13:00)
--- NOTE | 2020-10-23 13:04 | Cardiac Cath Report ---
Cardiac Cath Report Physician (s)/Mems Device Scientist (s) Physician JAZ NERI MD Pre-Procedure Diagnosis Pre-Procedure Diagnosis: coronary artery disease Post-Procedure Note Procedure Start Date: October 23, 2020 Name of Procedure: Left heart catheterization Vein graft angiogram Findings/Procedure Note PROCEDURE NOTE: 85-year-old gentleman with a history of coronary artery disease, CABG, interventions in the past, had an abnormal stress test, scheduled for cardiac catheterization possible PTCA After explaining the procedure to the patient, all pros and cons were explained, all questions were answered. The patient signed the consent and then he was placed on the cardiac catheterization laboratory. Groin was prepped SL fashion local anesthesia was used. Sheath placed in the right femoral artery. Edin right and left catheter were used to access the coronary system.Vein Graft evaluated. MELTON was not evaluated. Pigtail was used to access the left ventricular cavity. Left ventriculogram was done Aortic arch angiogram was done At the end of the procedure the sheath was removed. Closure device was used FINDINGS: Hemodynamics LV 102/17, end-diastolic pressure of 17 Aorta 115/53 mean of 64 ANATOMY: Left Main is free of obstructive disease Left Anterior Descending has severe stenosis at the proximal and midportion, vein graft to the LAD is patent with slow flow distally Left Circumflex has mild stenosis proximally, the second obtuse marginal branch is occluded with patent vein graft to the second obtuse marginal branch Right Coronary Artery has diffuse ectasia with slow flow distally, small vessel disease MELTON was not evaluated Vein Graft evaluation showed 3 vein graft, 2 of them are known to be occluded with a vein graft to the right coronary artery and diagonal artery Vein graft that is a jump graft to the LAD and second obtuse marginal branch is patent with slow flow distally due to small vessel disease LV Gram was done showing inferior wall hypokinesia, ejection fraction 50% Aorta evaluation showed heavy tortuosity in the thoracic aorta with atherosclerotic plaque and calcification. No dissection or aneurysm, normal origin of the brachiocephalic artery, left carotid and left subclavian arteries CONCLUSION: 1. Patent vein graft to the LAD and second obtuse marginal branch with patent stent in the proximal portion of that vein graft, distally there is slow flow due to small vessel disease 2. Mild disease in the proximal circumflex artery and first obtuse marginal br anch 3. Diffuse ectasia in the right coronary artery with slow flow due to small vessel disease 4. Patient is known to have occluded 2 vein grafts probably to the right coronary artery and diagonal artery, severe stenosis in the proximal LAD that has not changed compared to 2018 DISCUSSION AND RECOMMENDATION: Abnormal stress test is probably due to small vessel disease, in addition to the occluded vein grafts, medical therapy is recommended Anesthesia Type: Conscious Sedation Estimated blood loss (mL): 25 ml Contrast Amount: 81 ml Total Radiation Dose: 422 mGy Post-Procedure Diagnosis Post-operative diagnosis: Chest pain Coronary artery disease Hypertension Hyperlipidemia JAZ NERI MD October 23, 2020 13:04
== END 2020-10-23 17:45 | disposition home or self-care (01) ==
LOC: CATH 10:42
PROVIDERS: ATTEND Internal Medicine Cardiovascular Disease
DX: I25.10 Atherosclerotic heart disease of native coronary artery without angina pectoris (principal); I10 Essential (primary) hypertension; I48.0 Paroxysmal atrial fibrillation; I73.00 Raynaud's syndrome without gangrene; I65.23 Occlusion and stenosis of bilateral carotid arteries; E78.2 Mixed hyperlipidemia; Z79.82 Long term (current) use of aspirin; Z79.899 Other long term (current) drug therapy; Z88.8 Allergy status to other drugs, medicaments and biological substances; Z79.01 Long term (current) use of anticoagulants; Z87.891 Personal history of nicotine dependence; Z86.73 Personal history of transient ischemic attack (TIA), and cerebral infarction without residual deficits
CPT/HCPCS: 36221; 71045; 80053; 80061; 85027; 85610; 85730; 87081; 93459; C1760; C1894; 36415

== ENCOUNTER → 2020-11-15 | Outpatient (CLI) | payer MEDICARE ==
[~2020-11-15] MED LIST changes: +CHOL200074 PO; +GADOBUTROL 7.5 MMOL/7.5 ML (GADAVIST) VIAL IV ONE; +OMEG1CAP24 PO
--- NOTE | 2020-11-15 16:13 | Diagnostic Imaging Report ---
PROCEDURE: MR imaging of the brain with and without contrast. TECHNIQUE: Multiplanar, multisequence MR imaging of the brain was performed with and without contrast. INDICATION: Delusions. Altered mental status. COMPARISON: 07/25/2013. FINDINGS: No acute ischemia, mass, or hemorrhage. A focal area of T2 hyperintense signal is seen in the subcortical white matter in the left frontal lobe involving the precentral gyrus, similar to the prior exam from 2013. A new focus of T2 hyperintense signal is seen in the subcortical white matter in the more anterior left frontal lobe. No associated enhancement is seen at these areas. The ventricles and cortical sulci are prominent. The basilar cisterns are symmetric and unremarkable. The sellar and suprasellar regions have a normal appearance. The brainstem and posterior fossa are unremarkable. The paranasal sinuses and mastoid air cells demonstrate normal signal characteristics. The globes and orbits are symmetric and unremarkable. The scalp and calvarium have a normal appearance. IMPRESSION: 1. No acute ischemia, mass, or hemorrhage. No abnormal enhancement. 2. Small foci of T2 hyperintense signal in the subcortical white matter involving the left frontal lobe, likely representing chronic microvascular disease. 3. Generalized parenchymal volume loss. Dictated by: Dictated on workstation # [id number]
== END ==
LOC: RAD 14:45
PROVIDERS: ATTEND Family Medicine
DX: G31.9 Degenerative disease of nervous system, unspecified (principal)
CPT/HCPCS: 70553

== ENCOUNTER 2022-07-13 01:03 | Emergency (ER) | payer MEDICARE ==
[~2022-07-13] VITALS: Ht 177.8 cm; Wt 68.0 kg
[~2022-07-13 01:03] MED LIST changes: -GADOBUTROL 7.5 MMOL/7.5 ML (GADAVIST) VIAL IV ONE; +MEMA28CA16 PO; -MEMA28CA5 PO
[2022-07-13 01:10] VITALS: BP 132/79
--- NOTE | 2022-07-13 01:41 | ED Cardiac General ---
History of Present Illness General Chief Complaint: Cardiac/General Problems Stated Complaint: TACHYCARDIA Nursing Triage Note: PT PRESENTS WITH C/O TACHYCARDIC EPISODE THAT HAPPENED AT APPROX 0030 TONIGHT. PT C/O R ARM PAIN AND WAS NOTED BY BYSTANDER TO BE APPROX 160. SHE HAD HIM LAY FLAT AND LIFT HIS LEGS BACK CAUSING THE HEART RATE TO GO DOWN. PT WAS RECENTLY TAKEN OFF OF HIS RATE CONTROL MEDICATION DUE TO QT INTERVAL PROBLEMS. Source: patient, family, old records Exam Limitations: no limitations History of Present Illness Date Seen by Provider: Jul 13, 2022 Time Seen by Provider: 01:17 Initial Comments This 86-year-old gentleman presents to the emergency room with concern about a tachycardic episode that occurred around 0030. He complained of some achiness in his right arm, and his observed some venous distention with fluttering pulsation. She checked his pulse and found it to be around 160. She then had him put up his legs and Valsalva x3. That resolved the tachycardia. Patient denies any discomfort now. He is in sinus rhythm with heart rate in the 60s. He has history of paroxysmal atrial fibrillation and extensive cardiovascular disease. He has had stents and CABG. He sees Dr. Fletcher in [place] with whom he has an appointment at 1400 today. He has beta-reinaldo intolerance and was recently taken off of Tikosyn due to QT prolongation. He is not presently on any rhythm controlling medications. His is the primary historian. Review of chart also provides some history. He is anticoagulated on Eliquis. He took Eliquis and aspirin about midnight. Dr. Rocha is his primary electric meter tester. Dr. Can is his primary care provider. He does not have any rhythm recording devices as his loop recorder battery is . Allergies and Home Medications Allergies Coded Allergies: No Known Drug Allergies (Verified , 05/20/09) Patient Home Medication List Home Medication List Reviewed: Yes Apixaban (Eliquis) 5 Mg Tablet, 5 MG PO BID, (Reported) Entered as Reported by: MONSERRAT BARLOW on 10/23/20 1204 Aspirin (Aspirin EC) 81 Mg Tablet.dr 81 MG PO HS, (Reported) Entered as Reported by: MONSERRAT BARLOW on 10/23/20 1204 Cholecalciferol (Vitamin D3) (Vitamin D3) 50 Mcg Capsule, 50 MCG PO DAILY, (Reported) Entered as Reported by: MONSERRAT BARLOW on 10/23/20 1204 Dofetilide (Dofetilide) 500 Mcg Capsule, 500 MCG PO BID, (Reported) Entered as Reported by: DEWAYNE VALLES on 11/03/17 0845 Memantine HCl (Memantine HCl ER) 28 Mg Cap.spr.24, 28 MG PO HS, (Reported) Entered as Reported by: DEWAYNE VALLES on 11/03/17 0846 Multivitamin (Multi-Vitamin Daily) 1 Each Tablet, 1 EACH PO DAILY, (Reported) Entered as Reported by: DEWAYNE VALLES on 11/03/17 0843 [place]-3 Fatty Acids/Fish Oil ([place] 3 Fish Oil Softgel) 1 Each Capsule.dr, 1 EACH PO BID, (Reported) Entered as Reported by: MONSERRAT BARLOW on 10/23/20 1204 Pravastatin Sodium (Pravastatin Sodium) 20 Mg Tablet, 20 MG PO HS, (Reported) Entered as Reported by: DEWAYNE VALLES on 11/03/17 0845 Ramipril (Ramipril) 5 Mg Capsule, 10 MG PO HS, (Reported) Entered as Reported by: DEWAYNE VALLES on 11/03/17 0845 Rivastigmine (Rivastigmine) 1 Each Patch.td24, 13.3 MG TD HS, (Reported) Entered as Reported by: DEWAYNE VALLES on 11/03/17 0844 Turmeric/Turmeric Root Extract (Turmeric 500 mg Capsule) 1 Each Capsule, 1 EACH PO DAILY, (Reported) Entered as Reported by: DEWAYNE VALLES on 11/03/17 0843 Review of Systems Review of Systems Constitutional: no symptoms reported EENTM: No Symptoms Reported Respiratory: No Symptoms Reported Cardiovascular: See HPI Gastrointestinal: No Symptoms Reported Genitourinary: No Symptoms Reported Musculoskeletal: no symptoms reported Skin: no symptoms reported Psychiatric/Neurological: No Symptoms Reported Endocrine: No Symptoms Reported Hematologic/Lymphatic: No Symptoms Reported Past Vjuxonk-Dkpylf-Dgjvmm Hx Patient Social History Tobacco Use?: No Immunizations Up To Date Tetanus Booster (TDap): Unknown Past Medical History Surgeries: Yes (Coronary artery bypass graft and heart ablation) CABG, Coronary Stent Respiratory: Yes Sleep Apnea Currently Using CPAP: Yes Cardiac: Yes (Coronary artery disease, hypertension, hyperlipidemia, CVA) Atrial Fibrillation (Paroxysmal), Coronary Artery Disease, High Cholesterol, Hypertension Neurological: Yes (short term memory loss) Dementia, Stroke Reproductive Disorders: No Genitourinary: Yes Gastrointestinal: No Endocrine: No HEENT: No Cancer: No Psychosocial: No Blood Disorders: No Family Medical History Family history: Cardiovascular disease 03 MOTHER, Onset:60 years & older Stroke 03 MOTHER, Onset:60 years & older Heart Disease, Hypertension Physical Exam Vital Signs Vital Signs - First Documented 07/13/22 01:10 Temp 36.7 Pulse 61 Resp 16 B/P (MAP) 132/79 (96) Capillary Refill : Less Than 3 Seconds Height, Weight, BMI Height: 5'10.50" Weight: 150lbs. 0.0oz. [id number]; 21.00 BMI Method:Stated General Appearance: No Apparent Distress, WD/WN HEENT: Normal ENT Inspection Neck: Normal Inspection; No JVD Respiratory: Lungs Clear, Normal Breath Sounds, No Accessory Muscle Use Cardiovascular: Regular Rate, Rhythm, No Murmur, Normal Peripheral Pulses, Other (Minimal lower extremity edema) Gastrointestinal: Non Tender, Soft Extremity: Normal Inspection, Non Tender Neurologic/Psychiatric: Alert, No Motor/Sensory Deficits, Normal Mood/Affect Skin: Normal Color, Warm/Dry Progress/Results/Core Measures Results/Orders Lab Results Laboratory Tests Test 07/13/22 01:25 Range/Units White Blood Count 8.8 4.3-11.0 10^3/uL Red Blood Count 4.56 4.30-5.52 10^6/uL Hemoglobin 14.0 13.3-17.7 g/dL Hematocrit 42 40-54 % Mean Corpuscular Volume 91 80-99 fL Mean Corpuscular Hemoglobin 31 25-34 pg Mean Corpuscular Hemoglobin Concent 34 32-36 g/dL Red Cell Distribution Width 12.8 10.0-14.5 % Platelet Count 238 130-400 10^3/uL Mean Platelet Volume 10.8 9.0-12.2 fL Immature Granulocyte % (Auto) 0 % Neutrophils (%) (Auto) 57 42-75 % Lymphocytes (%) (Auto) 23 12-44 % Monocytes (%) (Auto) 17 H 0-12 % Eosinophils (%) (Auto) 2 0-10 % Basophils (%) (Auto) 1 0-10 % Neutrophils # (Auto) 5.0 1.8-7.8 10^3/uL Lymphocytes # (Auto) 2.0 1.0-4.0 10^3/uL Monocytes # (Auto) 1.5 H 0.0-1.0 10^3/uL Eosinophils # (Auto) 0.2 0.0-0.3 10^3/uL Basophils # (Auto) 0.1 0.0-0.1 10^3/uL Immature Granulocyte # (Auto) 0.0 0.0-0.1 10^3/uL Sodium Level 144 135-145 MMOL/L Potassium Level 3.8 3.6-5.0 MMOL/L Chloride Level 108 H 98-107 MMOL/L Carbon Dioxide Level 24 21-32 MMOL/L Anion Gap 12 5-14 MMOL/L Blood Urea Nitrogen 24 H 7-18 MG/DL Creatinine 1.14 0.60-1.30 MG/DL Estimat Glomerular Filtration Rate 63 BUN/Creatinine Ratio 21 Glucose Level 100 70-105 MG/DL Calcium Level 9.4 8.5-10.1 MG/DL Magnesium Level 2.3 1.6-2.4 MG/DL Troponin I < 0.028 <0.028 NG/ML My Orders Orders - ALEXANDRO CATALAN MD Ed Iv/Invasive Line Start (07/13/22 01:18) Ekg Tracing (07/13/22 01:18) Monitor-Rhythm Ecg Trace Only (07/13/22 01:18) Basic Metabolic Panel (07/13/22 01:32) Cbc With Automated Diff (07/13/22 01:32) Magnesium (07/13/22 01:32) Troponin I Pettis (07/13/22 01:32) Chest 1 View, Ap/Pa Only (07/13/22 01:33) Vital Signs/I&O 07/13/22 01:10 Temp 36.7 Pulse 61 Resp 16 B/P (MAP) 132/79 (96) Blood Pressure Mean: 96 Progress Progress Note : Time: 03:07 Progress Note Work-up was unremarkable and patient was asymptomatic throughout his entire ER stay. He was discharged to pursue follow-up with Dr. Fletcher during his scheduled appointment this afternoon. Initial ECG Impression Date: Jul 13, 2022 Initial ECG Impression Time: 01:19 Initial ECG Rate: 60 Initial ECG Rhythm: Normal Sinus Initial ECG Intervals: Normal Initial ECG Impression: Normal Comment Normal sinus rhythm with no ST elevation or depression. No abnormal intervals. Left axis deviation. Diagnostic Imaging Diagonstic Imaging: Xray Plain Films/CT/US/NM/MRI: chest Comments Chest x-ray viewed by me. Prior x-ray reviewed for comparison. Report not yet available. There was perhaps atelectasis in the lung bases but no other acute changes from prior. Departure Impression Primary Impression: Tachycardia Additional Impression: Paroxysmal atrial fibrillation Disposition: 01 HOME, SELF-CARE Condition: Improved Departure-Patient Inst. Decision time for Depature: 03:02 Referrals: RAVEN CAN MD (PCP/Family) Primary Care Physician Patient Instructions: Atrial Fibrillation Add. Discharge Instructions: Keep your appointment with Dr. Fletcher today. Continue your medications unless otherwise directed. Return to care if you have worsening symptoms despite following these instructions. All discharge instructions reviewed with patient and/or family. Voiced understanding. Copy Copies To 1: RAVEN CAN MD Copies To 2: JAZ ROCHA MD, JOSHUA T MD Jul 13, 2022 01:41
[2022-07-13 01:48] LABS: BASOPHILS # (AUTO) 0.1 10^3/uL (0.0-0.1); BASOPHILS % (AUTO) 1 % (0-10); EOSINOPHILS # (AUTO) 0.2 10^3/uL (0.0-0.3); EOSINOPHILS % (AUTO) 2 % (0-10); HEMATOCRIT 42 % (40-54); LYMPHOCYTES % (AUTO) 23 % (12-44); MEAN CORPUSCULAR HEMOGLOBIN 31 pg (25-34); MEAN CORPUSCULAR HGB CONC 34 g/dL (32-36); MEAN CORPUSCULAR VOLUME 91 fL (80-99); MEAN PLATELET VOLUME 10.8 fL (9.0-12.2); MONOCYTES # (AUTO) 1.5 10^3/uL (0.0-1.0); MONOCYTES % (AUTO) 17 % (0-12); NEUTROPHILS % (AUTO) 57 % (42-75); PLATELET COUNT 238 10^3/uL (130-400); WHITE BLOOD COUNT 8.8 10^3/uL (4.3-11.0)
[2022-07-13 01:50] LABS: CHLORIDE 108 MMOL/L (98-107); POTASSIUM 3.8 MMOL/L (3.6-5.0); SODIUM 144 MMOL/L (135-145)
[2022-07-13 01:51] LABS: CALCIUM 9.4 MG/DL (8.5-10.1)
[2022-07-13 01:52] LABS: GLUCOSE 100 MG/DL (70-105)
[2022-07-13 01:53] LABS: CARBON DIOXIDE 24 MMOL/L (21-32)
[2022-07-13 01:56] LABS: CREATININE SERUM 1.14 MG/DL (0.60-1.30); GFR ESTIMATED 63
[2022-07-13 01:57] LABS: BUN/CREATININE RATIO 21
[2022-07-13 01:58] LABS: MAGNESIUM 2.3 MG/DL (1.6-2.4)
--- NOTE | 2022-07-13 06:20 | Diagnostic Imaging Report ---
EXAMINATION: Chest 1 view HISTORY: Chest pain COMPARISON: None available. FINDINGS: Heart size and pulmonary vasculature are normal. The lungs are clear without consolidation, pleural effusion, or pneumothorax. The osseous structures are intact. Surgical changes from CABG. IMPRESSION: 1. No acute radiographic abnormality in the chest. Dictated by: Dictated on workstation # [id number]
== END 2022-07-13 03:13 | disposition home or self-care (01) ==
LOC: EDUNIT# 01:03 → ER 01:06
DX: I48.0 Paroxysmal atrial fibrillation (principal); Z79.01 Long term (current) use of anticoagulants
CPT/HCPCS: 36415; 71045; 80048; 83735; 84484; 85025; 93005; 93041

== ENCOUNTER 2022-07-24 09:09 | Day surgery (SDC) | payer MEDICARE ==
[~2022-07-24] VITALS: Ht 177.8 cm; Wt 70.2 kg
[2022-07-24] MEDS ORDERED: LIDOCAINE 1% INJ 20 ML VIAL INJ ONE (09:45)
[2022-07-24 09:53] VITALS: BP 105/94
[2022-07-24] MEDS ORDERED: LIDOCAINE 1% INJ 20 ML VIAL ONE (10:00)
--- NOTE | 2022-07-24 12:08 | Implantation of Loop Monitor ---
Implant of Loop Monitior IMPLANTATION OF LOOP MONITOR REPORT DATE OF PROCEDURE: 07/24/22 PREOP DIAGNOSIS: Paroxysmal atrial fibrillation POSTOP DIAGNOSIS: Paroxysmal atrial fibrillation PROCEDURE DETAILS: The patient is a 86 male with history of paroxysmal atrial fibrillation requiring long-term surveillance. Therefore implantable loop recorder was discussed and agreed with the patient. Informed consent was taken. All risks and complications were discussed at length. The patient was draped and prepped in the usual sterile fashion. Local anesthesia was lidocaine, which was given in the substernal area close to the 4th intercostal space. Loop monitor [employer] with serial number [id number] was implanted according to the protocol. Steri- Strips were placed at the end of the procedure. There were no complications and the patient tolerated the procedure well. The device was interrogated with a voltage of. ANESTHESIA: Local anesthesia with lidocaine. COMPLICATIONS: None CONTRAST/FLUOROSCOPY: None CONCLUSION: Successful implantation of loop monitor with no complication FINAL DIAGNOSIS: Paroxysmal atrial fibrillation Coronary artery disease JAZ NERI MD Jul 24, 2022 12:08
== END 2022-07-24 11:27 | disposition home or self-care (01) ==
LOC: CATH 09:09
PROVIDERS: ATTEND Internal Medicine Cardiovascular Disease
DX: I48.0 Paroxysmal atrial fibrillation (principal); I25.10 Atherosclerotic heart disease of native coronary artery without angina pectoris; R00.1 Bradycardia, unspecified; I73.00 Raynaud's syndrome without gangrene; I10 Essential (primary) hypertension; E78.2 Mixed hyperlipidemia; I65.23 Occlusion and stenosis of bilateral carotid arteries; Z87.19 Personal history of other diseases of the digestive system; Z86.010 Personal history of colon polyps; Z86.73 Personal history of transient ischemic attack (TIA), and cerebral infarction without residual deficits; Z79.899 Other long term (current) drug therapy; Z79.82 Long term (current) use of aspirin; Z95.1 Presence of aortocoronary bypass graft; Z87.891 Personal history of nicotine dependence
CPT/HCPCS: 33285; C1764

== ENCOUNTER → 2022-08-05 | Outpatient (CLI) | payer MEDICARE ==
[~2022-08-05] MED LIST changes: +REGADENOSON 0.4 MG/5 ML SYR (LEXISCAN) IV ONE
[2022-08-05] MEDS: CATHETER FLUSH 10 ML SYR IVP PRN ×2 (12:39→13:45)
[2022-08-05 13:34] VITALS: BP 138/83
--- NOTE | 2022-08-05 18:23 | Cardiology Stress Test Report ---
Stress Test Report Date of Procedure/Referring: Date of Procedure: Aug 05, 2022 PCP Raven Can MD Admitting Physician Admitting Physician: Attending Physician: Quita Rosas Indications: HTN Baseline Heart Rate: 45 Baseline Blood Pressure: Blood Pressure Systolic: 138 Blood Pressure Diastolic: 83 Baseline Vitals Vital Signs Date Time Temp Pulse Resp B/P (MAP) Pulse Ox O2 Delivery O2 Flow Rate FiO2 08/05/22 13:34 46 138/83 (101) Baseline EKG: Baseline EKG: NSR Summary After explaining the procedure to the patient, he signed a consent and then brought to the stress nuclear laboratory. Patient received 0.4 mg Lexiscan for stress test, ECG, heart rate and blood pressure were monitored continuously. Resting and stress dose of radio tracer were injected, imaging was acquired and reviewed in short axis, horizontal long axis and vertical long axis views. TID: 1.11 SSS: 18 SDS: 12 EF: 57 Patient was unable to exercise beyond 1 minutes and 20 seconds on Jose Francisco protocol, did not achieve target heart rate, test was converted to Lexiscan Myoview stress test Patient tolerated Lexiscan well Reversible ischemia involving the whole anterior wall and anterolateral wall Normal left ventricular size, ejection fraction 57% Copy Copies To 1: RAVEN CAN MD, BASHAR J MD Aug 05, 2022 18:23
== END ==
LOC: CARD 12:16
PROVIDERS: ATTEND Physician Assistant
DX: I10 Essential (primary) hypertension (principal)
CPT/HCPCS: 78452; 93017; A9502

== ENCOUNTER 2022-08-12 06:54 | Day surgery (SDC) | payer MEDICARE ==
[~2022-08-12] VITALS: Ht 177.8 cm; Wt 71.7 kg
[2022-08-12] VITALS (15 sets, daily range): BP systolic 88–110; BP diastolic 60–84
[~2022-08-12 06:54] MED LIST changes: -REGADENOSON 0.4 MG/5 ML SYR (LEXISCAN) IV ONE
[2022-08-12] MEDS ORDERED: LIDOCAINE 1% INJ 20 ML VIAL ONE (07:10)
[2022-08-12] MEDS ORDERED: NS IV 1000 ML 1,000 ML ONE (07:10)
[2022-08-12] MEDS ORDERED: HEParin (CATH LAB) 2,000 ML IV ONE (07:10)
[2022-08-12] MEDS ORDERED: NS IV 1000 ML 1,000 ML IV SCH ×2 (07:15→09:15)
[2022-08-12 07:38] LABS: HEMATOCRIT 44 % (40-54); MEAN CORPUSCULAR HEMOGLOBIN 31 pg (25-34); MEAN CORPUSCULAR HGB CONC 34 g/dL (32-36); MEAN CORPUSCULAR VOLUME 91 fL (80-99); MEAN PLATELET VOLUME 10.3 fL (9.0-12.2); PLATELET COUNT 246 10^3/uL (130-400); WHITE BLOOD COUNT 8.8 10^3/uL (4.3-11.0)
--- NOTE | 2022-08-12 07:44 | Diagnostic Imaging Report ---
INDICATION: Abnormal stress test COMPARISON: 07/13/2022 FINDINGS: Single frontal view of the chest demonstrates normal heart size and pulmonary vascularity. The lungs are well aerated and clear. No large pleural effusion or pneumothorax is seen. The visualized osseous structures show no acute abnormalities. IMPRESSION: 1. No acute cardiopulmonary process. Dictated by: Dictated on workstation # [id number]
[2022-08-12] MEDS ORDERED: RIVA1PAT13 TD (07:50)
[2022-08-12] MEDS ORDERED: RAMI10CA69 PO (07:50)
[2022-08-12 07:59] LABS: ALBUMIN 4.2 GM/DL (3.2-4.5); BILIRUBIN,TOTAL 0.5 MG/DL (0.1-1.0); CALCIUM 9.7 MG/DL (8.5-10.1); CREATININE SERUM 1.22 MG/DL (0.60-1.30)
[2022-08-12] MEDS ORDERED: fentaNYL INJ 100 MCG/2 ML AMP ONE (07:59)
[2022-08-12] MEDS ORDERED: MIDAZOLAM 5 MG/5 ML (VERSED) VIAL ONE (08:00)
[2022-08-12 08:12] LABS: PROTHROMBIN TIME PATIENT 13.7 SEC (12.2-14.7)
--- NOTE | 2022-08-12 08:15 | Cardiac Procedure Note-CS/ASA ---
Pre-Procedure Note Pre-Op Procedure Note Date of Available H&P: Aug 10, 2022 Date H&P Reviewed: Aug 12, 2022 Time H&P Reviewed: 08:15 History & Physical: H&P Reviewed, Patient Examed, No changes noted Pre-Operative Diagnosis: coronary artery disease Conscious Sedation Pre-Proced Time 08:15 ASA Score 3 For ASA 3 and 4: Consider anesthesia and medical clearance. Also, for patients with a history of failed moderate sedation consider anesthesia. Airway Lungs Heart ASA score ASA 1: a normal healthy patient ASA 2: a patient with a mild systemic disease (mid diabetes, controlled hypertension, obesity ASA 3: a patient with a severe systemic disease that limits activity (angina, COPD, prior Myocardial infarction) ASA 4: a patient with an incapacitating disease that is a constant threat to life (CHF, renal failure) ASA 5: a moribund patient not expected to survive 24 hrs. (ruptured aneurysm) ASA 6: a declared brain- patient whose organs are being harvested. For emergent operations, add the letter E after the classification Mallampati Classification Grade 3 Sedation Plan Analgesia, Amnesia, Plan communicated to team members, Discussed options with patient/fam, Discussed risks with patient/fam The patient is an appropriate candidate to undergo the planned procedure, sedation, and anesthesia. The patient immediately re-assessed prior to indication. JAZ NERI MD Aug 12, 2022 08:15
[2022-08-12] MEDS ORDERED: PATIENT MAY USE OWN MEDS, ALL PO SCH (09:15)
--- NOTE | 2022-08-12 09:15 | Discharge Inst-Post CATH ---
Discharge Inst-CATH/EP Problems Reviewed?: Yes Post Cardiac Cath/EP D/C Inst Follow Up/Plan Appointment with Dr. Rocha's office in 2 to 4 weeks <b>CARDIAC CATH/EP PROCEDURE DISCHARGE INSTRUCTIONS</b> ACTIVITY * Go Home directly and rest. * Limit activity of the leg (or wrist if it was used) for 7 days including aer obics, swimming, jogging, bicycling, etc. * Restrict stair-climbing for 7 days if possible, if not, climb up with your non-cath leg, then bring together on the same step. * Avoid lifting, pushing, pulling or excessive movement of the affected extremi ty for 7 days. * Customary sexual activity may be resumed after 2 days-use caution not to use a position that strains or causes pain to the affected extremity. * No driving for 24 hours. * NO SMOKING. * Avoid straining for bowel movements for 7 days. * Gentle walking on level ground is allowed. * Returning to work will depend on the type of procedure and the results. Your doctor will discuss this with you. CALL YOUR DOCTOR FOR ANY OF THE FOLLOWING: *If bleeding from the puncture site occurs- Apply gentle pressure to site with clean cloth and call your doctor or EMS. * If a knot or lump forms under the skin, increases in size, or causes pain. * If bruising appears to be worsening or moving further down your leg instead of disappearing. * Temperature above 101 F. CARE OF YOUR GROIN INCISION; * Bruising or purple discoloration of the skin near the puncture site is common. * You may shower only, no bathtub bathing for 5 days. Be careful to avoid slipping as your leg may feel stiff. * If a closure device was used on your femoral artery, please see the attached guide regarding care of the device and your leg. * Leave dressing on FOR 24 hours. CARE OF YOUR WRIST INCISION; * Bruising or purple discoloration of the skin near the puncture site is common. * You may shower. * DO NOT submerge wrist. * Leave dressing on FOR 24 hours. JAZ ROCHA MD Aug 12, 2022 09:15
--- NOTE | 2022-08-12 09:23 | Cardiac Cath Report ---
Cardiac Cath Report Physician (s)/Shuttle Van Driver (s) Physician JAZ NERI MD Pre-Procedure Diagnosis Pre-Procedure Diagnosis: coronary artery disease Post-Procedure Note Procedure Start Date: Aug 12, 2022 Name of Procedure: Left heart catheterization Vein graft angiogram Findings/Procedure Note PROCEDURE NOTE: 86-year-old gentleman with history of coronary artery disease, CABG, multiple interventions in the past, had an abnormal stress test, scheduled for cardiac catheterization possible PTCA. After explaining the procedure to the patient, all pros and cons were explained, all questions were answered. The patient signed the consent and then he was placed in the cardiac catheterization laboratory. Groin was prepped in SL fashion local anesthesia was used. Sheath placed in the right femoral artery. Edin' right and left catheter were used to access the coronary system. Edin right catheter was used to access the vein graft, patient is known to have 2 occluded vein graft and 1 patent jump graft vein graft. Pigtail was used to access the left ventricular cavity. Left ventriculogram was not done, pressure was measured At the end of the procedure the sheath was removed. Closure device FINDINGS: Hemodynamics LV 85/15, end-diastolic pressure of 15 Aorta 79/55 mean of 66 ANATOMY: Left Main has severe proximal stenosis 80% Left Anterior Descending has multiple segment of severe stenosis at the ostium, proximal and mid ranging from 70 to 90%, the vein graft that is a jump graft to the LAD and circumflex artery is occluded at the anastomosis point with the LAD Left Circumflex has severe disease distally, the vein graft to the obtuse marginal branch is patent, the distal obtuse marginal branch has severe stenosis distally Right Coronary Artery is a large dominant artery with patent stent in the mid right coronary artery with diffuse ectasia and distal disease with slow flow. T here are collateral filling the distal LAD from the right coronary artery Vein graft angiogram: There are 2 known to be occluded vein graft The vein graft that is a jump graft to the LAD and obtuse marginal branch is patent, the LAD is occluded at the anastomosis point, the obtuse marginal branch is patent with good flow distally LV Gram was not done, pressure was measured CONCLUSION: Severe stenosis at the ostial left main, ostial and proximal and mid LAD and distal circumflex artery There are 2 occluded vein graft, the vein graft that is a jump graft to the LAD and circumflex artery is patent, the LAD is occluded at the anastomosis point, the circumflex artery/obtuse marginal is patent with severe stenosis distally Right coronary artery is a dominant artery with patent stent in the mid right coronary artery with mild diffuse ectasia and slow flow, giving collaterals to the LAD DISCUSSION AND RECOMMENDATION: I had a lengthy discussion with the family about treatment option between conservative management versus referral to a tertiary care center for high risk intervention on the LAD. We will seek a second opinion Anesthesia Type: Conscious Sedation Estimated blood loss (mL): 15 ml Contrast Amount: 38 ml Total Radiation Dose: 374 mGy Post-Procedure Diagnosis Post-operative diagnosis: Chest pain Coronary artery disease Hypertension Hyperlipidemia JAZ NERI MD Aug 12, 2022 09:23
== END 2022-08-12 13:35 | disposition home or self-care (01) ==
LOC: CATH 06:54 → CSD 09:12 → CATH 13:35
PROVIDERS: ATTEND Internal Medicine Cardiovascular Disease
DX: I25.810 Atherosclerosis of coronary artery bypass graft(s) without angina pectoris (principal); I10 Essential (primary) hypertension; E78.2 Mixed hyperlipidemia; I48.0 Paroxysmal atrial fibrillation; I65.23 Occlusion and stenosis of bilateral carotid arteries; I73.00 Raynaud's syndrome without gangrene; Z86.79 Personal history of other diseases of the circulatory system; Z87.19 Personal history of other diseases of the digestive system; Z79.82 Long term (current) use of aspirin; Z79.01 Long term (current) use of anticoagulants; Z87.891 Personal history of nicotine dependence
CPT/HCPCS: 71045; 80053; 80061; 85027; 85610; 85730; 87081; 93005; 93459; C1760; C1894; 36415

== ENCOUNTER 2022-09-05 11:50 | Emergency (ER) | payer MEDICARE ==
[~2022-09-05] VITALS: Ht 177 cm; Wt 71.7 kg
[~2022-09-05 11:50] MED LIST changes: +RAMI10CA69 PO; +RIVA1PAT13 TD
--- NOTE | 2022-09-05 12:38 | ED Lower Extremity ---
General Chief Complaint: Lower Extremity Stated Complaint: left foot swelling Nursing Triage Note: PT AMB TO TRIAGE, PT CO OF L LOWER LEG SWELLING STARTED THIS AM. RATES PAIN 5/10 PT IS SCHEDULED FOR STENT IN L LEG BY DR GRUBER IN [place] ON WEDNESDAY. PT IS ALSO POSSIBLE TO HAVE A PACEMAKER PUT IN AT THIS X. Source: patient, family Exam Limitations: other (memory impairment) History of Present Illness Date Seen by Provider: Sep 05, 2022 Time Seen by Provider: 12:27 Allergies and Home Medications Allergies Coded Allergies: No Known Drug Allergies (Verified , 05/20/09) Patient Home Medication List Apixaban (Eliquis) 5 Mg Tablet, 5 MG PO BID, (Reported) Entered as Reported by: MONSERRAT BARLOW on 10/23/20 1204 Aspirin (Aspirin EC) 81 Mg Tablet.dr, 81 MG PO HS, (Reported) Entered as Reported by: MONSERRAT BAROLW on 10/23/20 1204 Cholecalciferol (Vitamin D3) (Vitamin D3) 50 Mcg Capsule, 50 MCG PO DAILY, (Reported) Entered as Reported by: MONSERRAT BARLOW on 10/23/20 1204 Memantine HCl (Memantine HCl ER) 28 Mg Cap.spr.24, 28 MG PO HS, (Reported) Entered as Reported by: DEWAYNE VALLES on 11/03/17 0846 Multivitamin (Multi-Vitamin Daily) 1 Each Tablet, 1 EACH PO DAILY, (Reported) Entered as Reported by: DEWAYNE VALLES on 11/03/17 0843 [place]-3 Fatty Acids/Fish Oil ([place] 3 Fish Oil Softgel) 1 Each Capsule.dr, 1 EACH PO BID, (Reported) Entered as Reported by: MONSERRAT BARLOW on 10/23/20 1204 Pravastatin Sodium (Pravastatin Sodium) 20 Mg Tablet, 20 MG PO HS, (Reported) Entered as Reported by: DEWAYNE VALLES on 11/03/17 0845 Ramipril (Ramipril) 10 Mg Capsule, 10 MG PO HS, (Reported) Entered as Reported by: DOE ECKERT on 08/12/22 0750 Rivastigmine (Rivastigmine) 13.3 Mg/24 Hour Patch.td24, 1 EACH TD HS, (Reported) Entered as Reported by: DOE ECKERT on 08/12/22 0750 Turmeric/Turmeric Root Extract (Turmeric 500 mg Capsule) 1 Each Capsule, 1 EACH PO DAILY, (Reported) Entered as Reported by: DEWAYNE VALLES on 11/03/17 0843 Past Bdeaqjr-Cuyevm-Sobpvr Hx Patient Social History Tobacco Use?: No Substance use?: No Alcohol Use?: No Immunizations Up To Date Tetanus Booster (TDap): Unknown Influenza Vaccine Up-to-Date: Yes; Up-to-Date First/Initial COVID19 Vaccinat: YES Second COVID19 Vaccination Tu: YES Third COVID19 Vaccination Date: YES COVID19 Vaccine Buyers' Agent: YES Past Medical History Surgery/Hospitalization HX: A-FIB, BYPASS, HEART ABLATION, STENTS Surgeries: Yes (Coronary artery bypass graft and heart ablation) CABG, Coronary Stent Respiratory: Yes Sleep Apnea Currently Using CPAP: Yes Cardiac: Yes (Coronary artery disease, hypertension, hyperlipidemia, CVA) Atrial Fibrillation, Coronary Artery Disease, High Cholesterol, Hypertension Neurological: Yes (short term memory loss) Dementia, Stroke Reproductive Disorders: No Genitourinary: Yes Gastrointestinal: No Endocrine: No HEENT: No Cancer: No Psychosocial: No Blood Disorders: No Family Medical History Family history: Cardiovascular disease 03 MOTHER, Onset:60 years & older Stroke 03 MOTHER, Onset:60 years & older Heart Disease, Hypertension Physical Exam Vital Signs Vital Signs - First Documented 09/05/22 12:00 Pulse 99 Resp 18 B/P (MAP) 134/87 (103) Pulse Ox 100 Capillary Refill : Less Than 3 Seconds Height, Weight, BMI Height: 5'10.50" Weight: 150lbs. 0.0oz. [id number]; 22.00 BMI Method:Stated Progress/Results/Core Measures Results/Orders My Orders Orders - ALEXANDRO CATALAN MD Foot, Left, 3 Views (09/05/22 12:36) Vital Signs/I&O 09/05/22 12:00 Pulse 99 Resp 18 B/P (MAP) 134/87 (103) Pulse Ox 100 Blood Pressure Mean: 103 Departure Impression Primary Impression: Cellulitis of left foot Additional Impression: Exposure to COVID-19 virus Disposition: 01 HOME, SELF-CARE Condition: Stable Departure-Patient Inst. Decision time for Depature: 14:04 Referrals: RAVEN FALL MD (PCP/Family) Primary Care Physician Patient Instructions: COVID-19 Overview, Cellulitis (Skin Infection), Adult ED Add. Discharge Instructions: Complete antibiotics as prescribed. You should start noticing improvement within 24 hours of starting antibiotics. Isolate from your houseguest that was diagnosed with COVID-19. You should also follow CDC guidelines regarding quarantining after this exposure. You will need to let the care providers involved in your procedures scheduled for next week know that you have been exposed to COVID-19. They may need to delay the procedure. If you develop signs or symptoms of COVID-19 such as fever, body aches, cough, shortness of breath, vomiting, diarrhea, intense headache, sore throat, etc., you should evaluated and tested. For foot pain you may take Tylenol (acetaminophen) up to 1000 mg every 6 hours as needed. Follow your attendant honor bar instructions regarding the rapid heart rate. All discharge instructions reviewed with patient and/or family. Voiced understanding. Scripts Cephalexin (Cephalexin) 500 Mg Tablet 500 MG PO QID, #28 TAB Prov: ALEXANDRO CATALAN MD 09/05/22 ALEXANDRO CATALAN MD Sep 05, 2022 12:38
--- NOTE | 2022-09-05 13:56 | Diagnostic Imaging Report ---
INDICATION: Left foot pain, no known injury. TECHNIQUE: 3 views of the left foot CORRELATION STUDY: None FINDINGS: The osseous structures of the foot are intact. Joint spaces are maintained. Prominent plantar calcaneal spur. Alignment anatomic. Soft tissues appearing unremarkable. IMPRESSION: 1. Negative for acute findings of the left foot. Dictated by: Dictated on workstation # [id number]
[2022-09-05] MEDS ORDERED: CEPH500T PO (14:08)
[2022-09-05 14:19] VITALS: BP 134/87
== END 2022-09-05 14:19 | disposition home or self-care (01) ==
LOC: EDUNIT# 11:50 → ER 11:54
DX: L03.116 Cellulitis of left lower limb (principal); Z20.822 Contact with and (suspected) exposure to COVID-19
CPT/HCPCS: 73630

== ENCOUNTER → 2022-09-27 | Outpatient (CLI) | payer MEDICARE ==
[~2022-09-27] MED LIST changes: +CEPH500T PO
[2022-09-27 16:29] LABS: BASOPHILS # (AUTO) 0.1 10^3/uL (0.0-0.1); BASOPHILS % (AUTO) 1 % (0-10); EOSINOPHILS # (AUTO) 0.2 10^3/uL (0.0-0.3); EOSINOPHILS % (AUTO) 3 % (0-10); HEMATOCRIT 40 % (40-54); HEMOGLOBIN 13.4 g/dL (13.3-17.7); LYMPHOCYTES # (AUTO) 1.3 10^3/uL (1.0-4.0); LYMPHOCYTES % (AUTO) 15 % (12-44); MEAN CORPUSCULAR HEMOGLOBIN 31 pg (25-34); MEAN CORPUSCULAR HGB CONC 33 g/dL (32-36); MEAN CORPUSCULAR VOLUME 92 fL (80-99); MONOCYTES # (AUTO) 1.5 10^3/uL (0.0-1.0); MONOCYTES % (AUTO) 17 % (0-12); NEUTROPHILS # (AUTO) 5.9 10^3/uL (1.8-7.8); NEUTROPHILS % (AUTO) 65 % (42-75); PLATELET COUNT 327 10^3/uL (130-400); WHITE BLOOD COUNT 9.1 10^3/uL (4.3-11.0)
[2022-09-27 16:34] LABS: ALBUMIN 4.5 GM/DL (3.2-4.5); POTASSIUM 4.6 MMOL/L (3.6-5.0)
[2022-09-27 16:36] LABS: INR 1.1 (0.8-1.4); PROTHROMBIN TIME PATIENT 14.5 SEC (12.2-14.7); TOTAL PROTEIN 7.8 GM/DL (6.4-8.2)
[2022-09-27 16:38] LABS: BILIRUBIN,TOTAL 0.9 MG/DL (0.1-1.0)
[2022-09-27 16:40] LABS: CREATININE SERUM 1.3 MG/DL (0.60-1.30)
== END ==
LOC: LAB 16:04
PROVIDERS: ATTEND Nurse Practitioner Family
DX: S20.20XA Contusion of thorax, unspecified, initial encounter (principal); T81.9XXA Unspecified complication of procedure, initial encounter; Z95.0 Presence of cardiac pacemaker; X58.XXXA Exposure to other specified factors, initial encounter
CPT/HCPCS: 36415; 80053; 85025; 85610

== ENCOUNTER 2023-01-01 11:22 | Outpatient (RCR) | payer MEDICARE | END 2023-01-04 | disposition home or self-care (01) | LOC: CR 11:22 | PROVIDERS: ATTEND Internal Medicine Cardiovascular Disease | DX: Z29.8 Encounter for other specified prophylactic measures (principal); I25.10 Atherosclerotic heart disease of native coronary artery without angina pectoris; Z95.5 Presence of coronary angioplasty implant and graft | CPT/HCPCS: 93798 ==

== ENCOUNTER → 2023-01-04 | Outpatient (CLI) | payer MEDICARE ==
[2023-01-04 12:47] LABS: CREATININE SERUM 1.3 MG/DL (0.60-1.30)
== END ==
LOC: LAB 12:20
DX: Z00.00 Encounter for general adult medical examination without abnormal findings (principal)
CPT/HCPCS: 36415; 82565; 84520

== ENCOUNTER → 2023-01-04 | Outpatient (CLI) | payer MEDICARE ==
[~2023-01-04] MED LIST changes: +CATHETER FLUSH 10 ML SYR IV PRN; +HOLD METFORMIN - RECEIVED CONTRAST 20 ML VIAL IV SCH; +IOHEXOL 350 MG/ML 100 ML (OMNIPAQUE 350) VIAL IV ONE; +NS 100 ML (IVPB) BAG IV ONE
--- NOTE | 2023-01-04 13:53 | Diagnostic Imaging Report ---
PROCEDURE: CT head with and without contrast. TECHNIQUE: Multiple contiguous axial images were obtained through the brain before and after the administration of intravenous contrast. Auto Exposure Controls were utilized during the CT exam to meet ALARA standards for radiation dose reduction. INDICATION: Late-onset Alzheimer's and unsteadiness. COMPARISON: Comparison is made with prior head CT from 07/25/2013. FINDINGS: Ventricles and sulci are prominent, consistent with the patient's age. No sulcal effacement or midline shift is identified. No acute intra-axial or extra-axial hemorrhage is detected. Cisterns are patent. Visualized paranasal sinuses demonstrate some mucosal thickening of ethmoid air cells and the left maxillary sinus. Postcontrast images are without evidence of an abnormal enhancing lesion. IMPRESSION: Age-related atrophy. No acute intracranial process is detected. Dictated by: Dictated on workstation # [id number]
== END ==
LOC: RAD 12:14
PROVIDERS: ATTEND Family Medicine
DX: G30.1 Alzheimer's disease with late onset (principal); G31.9 Degenerative disease of nervous system, unspecified; I10 Essential (primary) hypertension; I25.10 Atherosclerotic heart disease of native coronary artery without angina pectoris; F02.B0 Dementia in other diseases classified elsewhere, moderate, without behavioral disturbance, psychotic disturbance, mood disturbance, and anxiety; R26.81 Unsteadiness on feet
CPT/HCPCS: 70470